=== PATIENT | male | born 1945 | race Caucasian/White ===

== ENCOUNTER → 2017-09-27 | Outpatient (CLI) | payer MEDICARE ==
[2017-09-27 11:37] LABS: ALT 49 U/L (21-72); AST 37 U/L (17-59); Albumin 3.8 g/dL (3.5-5.0); Alkaline Phosphatase 91 U/L (38-126); Anion Gap 9 mmol/L; Blood Urea Nitrogen 33 mg/dL (9-20); Calcium 9.6 mg/dL (8.4-10.2); Carbon Dioxide 32 mmol/L (22-30); Chloride 103 mmol/L (98-107); Creatine Kinase 42 U/L (55-170); Glucose 98 mg/dL (74-99); Sodium 144 mmol/L (137-145); Total Bilirubin 0.5 mg/dL (0.2-1.3); Total Protein 6.6 g/dL (6.3-8.2)
[2017-09-27 11:54] LABS: Troponin I 0.026 ng/mL (0.000-0.034)
== END | disposition home or self-care (01) ==
LOC: LABWHC1 10:50
PROVIDERS: ATTEND Nurse Practitioner Adult Health
DX: I25.10 Atherosclerotic heart disease of native coronary artery without angina pectoris (principal); R07.89 Other chest pain
CPT/HCPCS: 36415; 80053; 82550; 82553; 83880; 84484

== ENCOUNTER → 2017-11-18 | Outpatient (CLI) | payer MEDICARE | END | disposition home or self-care (01) | LOC: LABWHC1 14:46 | PROVIDERS: ATTEND Internal Medicine Cardiovascular Disease | DX: I50.9 Heart failure, unspecified (principal) | CPT/HCPCS: 36415; 83880 ==

== ENCOUNTER → 2017-11-22 | Outpatient (CLI) | payer MEDICARE ==
[2017-11-22 13:01] LABS: Anion Gap 11 mmol/L; Blood Urea Nitrogen 23 mg/dL (9-20); Calcium 9.3 mg/dL (8.4-10.2); Carbon Dioxide 26 mmol/L (22-30); Chloride 105 mmol/L (98-107); Glucose 80 mg/dL (74-99); Potassium 4.6 mmol/L (3.5-5.1); Sodium 142 mmol/L (137-145)
== END | disposition home or self-care (01) ==
LOC: LABWHC1 12:11
PROVIDERS: ATTEND Internal Medicine Cardiovascular Disease
DX: I50.9 Heart failure, unspecified (principal)
CPT/HCPCS: 36415; 80048

== ENCOUNTER → 2018-04-24 | Outpatient (CLI) | payer MEDICARE ==
[2018-04-24 18:14] LABS: Potassium 4.5 mmol/L (3.5-5.1)
[2018-04-24 18:23] LABS: HCT 49.2 % (39.0-53.0); HGB 15.8 gm/dL (13.0-17.5); MCH 29.2 pg (25.0-35.0); MCHC 32.1 g/dL (31.0-37.0); MCV 90.9 fL (80.0-100.0); Platelet Count 161 k/uL (150-450); RBC 5.42 m/uL (4.30-5.90); RDW 13.6 % (11.5-15.5); WBC 6.1 k/uL (3.8-10.6)
== END | disposition home or self-care (01) ==
LOC: LABPAT 17:09
PROVIDERS: ATTEND Internal Medicine Cardiovascular Disease
DX: Z01.812 Encounter for preprocedural laboratory examination (principal); I25.5 Ischemic cardiomyopathy; I42.9 Cardiomyopathy, unspecified
CPT/HCPCS: 36415; 80051; 82565; 84520; 85027

== ENCOUNTER 2018-04-27 10:17 | Inpatient (IN) | payer MEDICARE ==
--- NOTE | 2018-04-27 10:40 | ED ---
Arrhythmia/Palpitations HPI - General Chief Complaint: Arrhythmia/Palpitations Stated Complaint: Cardiac issues Time Seen by Provider: 04/27/18 10:21 Source: patient, EMS, RN notes reviewed Mode of arrival: EMS Limitations: no limitations - History of Present Illness Initial Comments: This a 73-year-old male presents emergency Department with chief complaint of tachycardia. Patient states that he was at cardiac rehab in which he states he has been there for several years and is continues work conditioning. Patient states that he was doing some light warmup exercises which did include weights and states that they found him to be tachycardic at 150s. Patient states she is asymptomatic he denied any dizziness, lightheadedness, chest pain, shortness breath, nausea, vomiting. Patient states he has noticed last 2 mornings when he gets up and checks his heart rate and blood pressure is heart rate has been just over 100. He states that normally is only in the 60s and states that he was planning to talk to his cardiac nurse about this though before he could they found to be tachycardic about 150. Patient states that he has no symptoms at this time he does admit that they recently changed his medications slightly states that he was discontinued off of potassium and was started on lactulose. Patient states he has had a triple bypass and is scheduled for a defibrillator secondary to his history of CHF, left bundle. He states that his ejection fracture is 30%. - Related Data Home Medications Medication Instructions Recorded Confirmed Aspirin 81 mg PO BID 07/18/15 04/27/18 Carvedilol 12.5 mg PO BID 07/18/15 04/27/18 Fish Oil/Dha/Epa [Fish Oil 1,200 1 each PO DAILY 07/18/15 04/27/18 mg Fish Oil] Multivitamin [Men's Multi-Vitamin] 1 each PO DAILY 07/18/15 04/27/18 Simvastatin [Zocor] 20 mg PO HS 07/18/15 04/27/18 Spironolactone [Aldactone] 25 mg PO DAILY 07/18/15 04/27/18 Ascorbic Acid [Vitamin C] 500 mg PO DAILY 04/27/18 04/27/18 Furosemide [Lasix] 40 mg PO DAILY 04/27/18 04/27/18 Allergies Allergy/AdvReac Type Severity Reaction Status Date / Time No Known Allergies Allergy Verified 09/20/18 11:40 Review of Systems ROS Statement: Those systems with pertinent positive or pertinent negative responses have been documented in the HPI. ROS Other: All systems not noted in ROS Statement are negative. Past Medical History Past Medical History: Heart Failure, Hyperlipidemia, Osteoarthritis (OA), Prostate Disorder, Sleep Apnea/CPAP/BIPAP, Thyroid Disorder Additional Past Medical History / Comment(s): uses oxygen @2l PRN, borderline diabetes prior to wt loss, occ lower leg edema, uses cane,walker PRN, See Dr Ortega H&P History of Any Multi-Drug Resistant Organisms: None Reported Past Surgical History: Adenoidectomy, Coronary Bypass/CABG, Heart Catheterization, Tonsillectomy Additional Past Surgical History / Comment(s): parathyroidectomy, cataract surg. , cardiac cath. 10-16-15 Past Anesthesia/Blood Transfusion Reactions: No Reported Reaction Past Psychological History: No Psychological Hx Reported Smoking Status: Former smoker Past Alcohol Use History: None Reported Past Drug Use History: None Reported - Past Family History Father Family Medical History: Cancer Additional Family Medical History / Comment(s): Father had prostate cancer with mets to the bone. He at age 76 yrs. General Exam Limitations: no limitations General appearance: alert, in no apparent distress Head exam: Present: atraumatic, normocephalic, normal inspection Eye exam: Present: normal appearance, PERRL, EOMI. Absent: scleral icterus, conjunctival injection, periorbital swelling ENT exam: Present: normal exam, normal oropharynx, mucous membranes moist, TM's normal bilaterally, normal external ear exam Neck exam: Present: normal inspection, full ROM. Absent: tenderness, meningismus, lymphadenopathy Respiratory exam: Present: normal lung sounds bilaterally. Absent: respiratory distress, wheezes, rales, rhonchi, stridor Cardiovascular Exam: Present: regular rate, normal rhythm, normal heart sounds. Absent: systolic murmur, diastolic murmur, rubs, gallop, clicks Neurological exam: Present: alert, oriented X3, CN II-XII intact Skin exam: Present: warm, dry, intact, normal color. Absent: rash Course Vital Signs 04/27/18 10:22 Temperature 96.9 F L Pulse Rate 82 Respiratory 16 Rate Blood Pressure 121/65 O2 Sat by Pulse 98 Oximetry Medical Decision Making - Medical Decision Making 73-year-old male presented for tachycardia. Patient's troponin is elevated at this time he does not have a current chest pain no patient was started on heparin. Patient sees Dr. Jacobs out of [place] in same office is Dr. Britni herrera. Patient will be admitted to [facility] services for Dr. Cortez at this time. Cardiology will be consult - Lab Data Result diagrams: 04/27/18 10:21 04/27/18 10:21 Lab Results 04/27/18 04/27/18 04/27/18 Range/Units 10:21 10:21 10:21 WBC 6.3 (3.8-10.6) k/uL RBC 5.53 (4.30-5.90) m/uL Hgb 16.4 (13.0-17.5) gm/dL Hct 50.7 (39.0-53.0) % MCV 91.7 (80.0-100.0) fL MCH 29.7 (25.0-35.0) pg MCHC 32.3 (31.0-37.0) g/dL RDW 13.8 (11.5-15.5) % Plt Count 156 (150-450) k/uL Neutrophils % 59 % Lymphocytes % 28 % Monocytes % 8 % Eosinophils % 2 % Basophils % 1 % Neutrophils # 3.7 (1.3-7.7) k/uL Lymphocytes # 1.7 (1.0-4.8) k/uL Monocytes # 0.5 (0-1.0) k/uL Eosinophils # 0.1 (0-0.7) k/uL Basophils # 0.1 (0-0.2) k/uL PT (9.0-12.0) sec INR (<1.2) APTT (22.0-30.0) sec Sodium 142 (137-145) mmol/L Potassium 4.7 (3.5-5.1) mmol/L Chloride 110 H (98-107) mmol/L Carbon Dioxide 23 (22-30) mmol/L Anion Gap 9 mmol/L BUN 29 H (9-20) mg/dL Creatinine 0.98 (0.66-1.25) mg/dL Est GFR (CKD-EPI)AfAm >90 (>60 ml/min/1.73 sqM) Est GFR (CKD-EPI)NonAf 78 (>60 ml/min/1.73 sqM) Glucose 104 H (74-99) mg/dL Calcium 9.2 (8.4-10.2) mg/dL Magnesium 2.1 (1.6-2.3) mg/dL Total Bilirubin 0.5 (0.2-1.3) mg/dL AST 25 (17-59) U/L ALT 32 (21-72) U/L Alkaline Phosphatase 76 (38-126) U/L Total Creatine Kinase 41 L (55-170) U/L CK-MB (CK-2) 1.5 (0.0-2.4) ng/mL CK-MB (CK-2) Rel Index 3.7 Troponin I 0.044 H* (0.000-0.034) ng/mL Total Protein 6.2 L (6.3-8.2) g/dL Albumin 3.5 (3.5-5.0) g/dL TSH 2.000 (0.465-4.680) mIU/L 04/27/18 Range/Units 10:21 WBC (3.8-10.6) k/uL RBC (4.30-5.90) m/uL Hgb (13.0-17.5) gm/dL Hct (39.0-53.0) % MCV (80.0-100.0) fL MCH (25.0-35.0) pg MCHC (31.0-37.0) g/dL RDW (11.5-15.5) % Plt Count (150-450) k/uL Neutrophils % % Lymphocytes % % Monocytes % % Eosinophils % % Basophils % % Neutrophils # (1.3-7.7) k/uL Lymphocytes # (1.0-4.8) k/uL Monocytes # (0-1.0) k/uL Eosinophils # (0-0.7) k/uL Basophils # (0-0.2) k/uL PT 12.0 (9.0-12.0) sec INR 1.3 H (<1.2) APTT 24.4 (22.0-30.0) sec Sodium (137-145) mmol/L Potassium (3.5-5.1) mmol/L Chloride (98-107) mmol/L Carbon Dioxide (22-30) mmol/L Anion Gap mmol/L BUN (9-20) mg/dL Creatinine (0.66-1.25) mg/dL Est GFR (CKD-EPI)AfAm (>60 ml/min/1.73 sqM) Est GFR (CKD-EPI)NonAf (>60 ml/min/1.73 sqM) Glucose (74-99) mg/dL Calcium (8.4-10.2) mg/dL Magnesium (1.6-2.3) mg/dL Total Bilirubin (0.2-1.3) mg/dL AST (17-59) U/L ALT (21-72) U/L Alkaline Phosphatase (38-126) U/L Total Creatine Kinase (55-170) U/L CK-MB (CK-2) (0.0-2.4) ng/mL CK-MB (CK-2) Rel Index Troponin I (0.000-0.034) ng/mL Total Protein (6.3-8.2) g/dL Albumin (3.5-5.0) g/dL TSH (0.465-4.680) mIU/L Disposition Clinical Impression: Elevated troponin, Tachycardia Disposition: ADMITTED IP TO THIS HOSP Condition: Fair Referrals: Romero Jacobs MD [Primary Care Provider] - 1-2 days
--- NOTE | 2018-04-27 10:56 | XR ---
EXAMINATION TYPE: XR chest 2V DATE OF EXAM: 04/27/2018 COMPARISON: 10/12/2013 HISTORY: Shortness of breath TECHNIQUE: Frontal and lateral views of the chest are obtained. FINDINGS: Scattered senescent parenchymal changes noted. Hyperinflation compatible with COPD. No evidence for infiltrate. No evidence for atelectasis. Heart size is stable. Mediastinal structures are stable and grossly unremarkable. No evidence for hilar prominence. Degenerative changes dorsal spine. IMPRESSION: 1. No evidence for acute pulmonary disease.
[2018-04-27 11:31] LABS: Basophils # (A) 0.1 k/uL (0-0.2); Basophils % (A) 1 %; Eosinophils # (A) 0.1 k/uL (0-0.7); Eosinophils % (A) 2 %; HCT 50.7 % (39.0-53.0); HGB 16.4 gm/dL (13.0-17.5); Lymphocytes # (A) 1.7 k/uL (1.0-4.8); Lymphocytes % (A) 28 %; MCH 29.7 pg (25.0-35.0); MCHC 32.3 g/dL (31.0-37.0); MCV 91.7 fL (80.0-100.0); Mean Platelet Volume 7.6; Monocytes # (A) 0.5 k/uL (0-1.0); Monocytes % (A) 8 %; Neutrophils # (A) 3.7 k/uL (1.3-7.7); Neutrophils % (A) 59 %; Platelet Count 156 k/uL (150-450); RBC 5.53 m/uL (4.30-5.90); RDW 13.8 % (11.5-15.5); WBC 6.3 k/uL (3.8-10.6)
[2018-04-27 11:32] LABS: ALT 32 U/L (21-72); AST 25 U/L (17-59); Albumin 3.5 g/dL (3.5-5.0); Alkaline Phosphatase 76 U/L (38-126); Anion Gap 9 mmol/L; Blood Urea Nitrogen 29 mg/dL (9-20); Calcium 9.2 mg/dL (8.4-10.2); Carbon Dioxide 23 mmol/L (22-30); Chloride 110 mmol/L (98-107); Glucose 104 mg/dL (74-99); Magnesium 2.1 mg/dL (1.6-2.3); Potassium 4.7 mmol/L (3.5-5.1); Sodium 142 mmol/L (137-145); Total Bilirubin 0.5 mg/dL (0.2-1.3); Total Protein 6.2 g/dL (6.3-8.2)
[2018-04-27 11:51] LABS: INR 1.3 (<1.2); Partial Thromboplastin Time 24.4 sec (22.0-30.0)
[2018-04-27 12:00] LABS: Creatine Kinase MB 1.5 ng/mL (0.0-2.4)
[2018-04-27 12:03] LABS: Troponin I 0.044 ng/mL (0.000-0.034)
[2018-04-27] MEDS ORDERED: HEPARIN SODIUM,PORCINE 5,000 UNIT/ML 1 ML VIAL IV PRN (12:11)
[2018-04-27] MEDS ORDERED: HEPARIN SODIUM,PORCINE 5,000 UNIT/ML 1 ML VIAL IV ONE (12:11)
[2018-04-27] MEDS ORDERED: NITROGLYCERIN SL TABS 0.4 MG TAB SUBLINGUAL PRN (12:23)
[2018-04-27] MEDS: HEPARIN SOD,PORK IN 0.45% NACL 25,000 UNIT in 0.45% NACL 1 500ML.BAG IV SCH (12:31)
[2018-04-27] MEDS ORDERED: LABETALOL 5 MG/ML VIAL MDV IVP STA (12:37)
[2018-04-27 17:01] LABS: Creatine Kinase MB 1.4 ng/mL (0.0-2.4)
[2018-04-27 17:09] LABS: Troponin I 0.038 ng/mL (0.000-0.034)
[2018-04-27] MEDS: CARVEDILOL 12.5 MG TAB PO SCH (17:25)
[2018-04-27] MEDS: ASPIRIN 81 MG PO SCH (20:44)
[2018-04-27] MEDS ORDERED: ATORVASTATIN 10 MG TAB PO SCH (21:00)
[2018-04-27 22:30] LABS: Creatine Kinase MB 1.4 ng/mL (0.0-2.4)
[2018-04-27 22:41] LABS: Troponin I 0.041 ng/mL (0.000-0.034)
[2018-04-28 03:38] LABS: Cholesterol 93 mg/dL (<200); HDL Cholesterol 48 mg/dL (40-60); LDL Cholesterol,Calculated 31 mg/dL (0-99); Triglycerides 69 mg/dL (<150)
[2018-04-28] MEDS: HEPARIN SOD,PORK IN 0.45% NACL 25,000 UNIT in 0.45% NACL 1 500ML.BAG IV SCH ×2 (04:37→12:15)
[2018-04-28] MEDS: CARVEDILOL 12.5 MG TAB PO SCH (06:34)
[2018-04-28] MEDS: NON-FORMULARY DRUG (Multivitamin [Men's Multi-Vitamin] 1 EACH) PO SCH (06:58)
[2018-04-28] MEDS: ASPIRIN 81 MG PO SCH (08:28)
[2018-04-28] MEDS: SPIRONOLACTONE 25 MG TAB PO SCH (08:28)
[2018-04-28] MEDS: FUROSEMIDE 40 MG TAB PO SCH (08:28)
[2018-04-28] MEDS ORDERED: ASPIRIN 325 MG TAB PO SCH (09:00)
[2018-04-28] MEDS ORDERED: DEXTROSE 5% IN WATER 100 ML with AMIODARONE 150 MG IV ONE (09:50)
[2018-04-28] MEDS ORDERED: APIXABAN 5 MG TAB PO SCH (10:00)
[2018-04-28 10:07] LABS: HCT 45.7 % (39.0-53.0); HGB 14.6 gm/dL (13.0-17.5); MCH 29.1 pg (25.0-35.0); MCV 90.8 fL (80.0-100.0); Mean Platelet Volume 8.4; Platelet Count 129 k/uL (150-450); RBC 5.03 m/uL (4.30-5.90); RDW 13.7 % (11.5-15.5); WBC 5.6 k/uL (3.8-10.6)
[2018-04-28] MEDS: AMIODARONE 450 MG in DEXTROSE 5% IN WATER 250 ML IV SCH ×4 (10:16→17:23)
[2018-04-28] MEDS: SACUBITRIL/VALSARTAN 24 MG-26 MG TABLET PO SCH ×2 (10:17→20:35)
--- NOTE | 2018-04-28 10:25 | CONS ---
CONSULTATION Mr. Pierson is a 73-year-old gentleman who came to the emergency room with a complaint of tachycardia. This patient has noticed for last 2 to 3 days his heart rate was running 110 to 130. Patient was in the rehab and at that time his heart rate jumped up to 150. He did not feel significant palpitations or dizziness. He was slightly short of breath, did not complain of any chest pain. This patient has a known history of ischemic cardiomyopathy, prior coronary artery bypass surgery, ischemic cardiomyopathy. The patient is supposed to have a AICD placed in next couple of weeks. The patient remains in functional class 3. He can walk a couple of blocks and climb the flight of stairs slowly. Denies any orthopnea or PND. He denies any history of angina on exertion. There is no previous history of atrial fibrillation. PAST MEDICAL HISTORY: Past medical history includes history of hypertension, hyperlipidemia. The patient is using CPAP and BiPAP machine. Coronary artery bypass surgery and parathyroidectomy. HOME MEDICATIONS: Patient's home medications included Coreg 6.25 mg b.i.d., aspirin, simvastatin, spironolactone, Lasix 40 mg daily and vitamin C. PHYSICAL EXAMINATION: Physical examination at present reveals a 73-year-old morbidly obese gentleman. Blood pressure is 118/74 mmHg. Heart rate is 50 per minute. Patient is now in sinus rhythm. Head/ENT examination is negative. Neck is supple. There is no increase in jugular venous pressure. Both the carotid pulses are felt. There is no bruit. Chest is symmetrical. HEART: The PMI is not felt. First and second heart sounds are normal. Lungs are clinically clear to auscultation and percussion. Abdomen is soft. There is no evidence of any leg edema. EKG showed evidence of right bundle branch block pattern with occasional PVCs and left axis deviation. Patient currently is in sinus rhythm. FINAL IMPRESSION: 1. This patient is admitted with paroxysmal atrial fibrillation. He is now converted to the normal sinus rhythm. This is his first episode of atrial fibrillation. 2. Ischemic cardiomyopathy with severely impaired left ventricular systolic function. 3. Status post coronary artery bypass surgery. RECOMMENDATIONS: In view of the patient's episodes of the atrial fibrillation, we will start the patient on amiodarone drip to prevent recurrent episodes of atrial fibrillation. Continue the rest of the medications. Patient is started on Eliquis 5 mg b.i.d. and we will discontinue aspirin. EKG and echocardiogram will be done. TERRI / ANGIEN: [id number] /
--- NOTE | 2018-04-28 10:27 | P.HPIM ---
History of Present Illness H&P Date: 04/27/18 Patient is a 73-year-old pleasant gentleman with known history of for can start failure ejection fraction of 30%, scheduled to get an AICD came in with compensative palpitations regular in nature denied any short of breath denied any chest pressure like sensation denied any fever chills. Patient was on Coreg 12.5 twice a day dose of which was decreased to 6.25 twice a day about couple months ago because of the severe bradycardia when he sleeps. Patient has been well elevated troponins which are secondary to palpitations patient denied any fever chills patient had shortness of breath orthopnea or paroxysmal nocturnal dyspnea patient apparently was tachycardic with heart rate in 150s denied any dizziness lightheadedness shortness of breath patient EKG showed tachycardia sinus wide-complex. With the right bundle branch block and left anterior fascicular block Review of Systems REVIEW OF SYSTEMS: CONSTITUTIONAL: No fever, no malaise, no fatigue. HEENT: No recent visual problems or hearing problems. Denied any sore throat. CARDIOVASCULAR: No chest pain, orthopnea, PND, no syncope. PULMONARY: No shortness of breath, no cough, no hemoptysis. GASTROINTESTINAL: No diarrhea, no nausea, no vomiting, no abdominal pain. Normoactive bowel sounds. NEUROLOGICAL: No headaches, no weakness, no numbness. HEMATOLOGICAL: Denies any bleeding or petechiae. GENITOURINARY: Denies any burning micturition, frequency, or urgency. MUSCULOSKELETAL/RHEUMATOLOGICAL: Denies any joint pain, swelling, or any muscle pain. ENDOCRINE: Denies any polyuria or polydipsia. The rest of the 14-point review of systems is negative. Past Medical History Past Medical History: Heart Failure, Hyperlipidemia, Osteoarthritis (OA), Prostate Disorder, Sleep Apnea/CPAP/BIPAP, Thyroid Disorder Additional Past Medical History / Comment(s): uses oxygen @2l PRN, borderline diabetes prior to wt loss, occ lower leg edema, History of Any Multi-Drug Resistant Organisms: None Reported Past Surgical History: Adenoidectomy, Coronary Bypass/CABG, Heart Catheterization, Tonsillectomy Additional Past Surgical History / Comment(s): parathyroidectomy, cataract surg. , cardiac cath. 10-16-15 Past Anesthesia/Blood Transfusion Reactions: No Reported Reaction Past Psychological History: No Psychological Hx Reported Additional Psychological History / Comment(s): Pt has a nonfamily member who [place]. Pt is independent. He has a cane he uses if weather is bad. He drives. Smoking Status: Former smoker Past Alcohol Use History: None Reported Additional Past Alcohol Use History / Comment(s): used to smoke a pipe, quit 40 yrs. ago Past Drug Use History: None Reported - Past Family History Father Family Medical History: Cancer Additional Family Medical History / Comment(s): Father had prostate cancer with mets to the bone. He at age 76 yrs. Medications and Allergies Home Medications Medication Instructions Recorded Confirmed Type Aspirin 81 mg PO BID 07/18/15 04/27/18 History Carvedilol 12.5 mg PO BID 07/18/15 04/27/18 History Fish Oil/Dha/Epa [Fish Oil 1,200 1 cap PO DAILY 07/18/15 04/27/18 History mg Fish Oil] Multivitamin [Men's Multi-Vitamin] 1 tab PO DAILY 07/18/15 04/27/18 History Simvastatin [Zocor] 20 mg PO HS 07/18/15 04/27/18 History Spironolactone [Aldactone] 25 mg PO DAILY 07/18/15 04/27/18 History Ascorbic Acid [Vitamin C] 500 mg PO DAILY 04/27/18 04/27/18 History Furosemide [Lasix] 40 mg PO DAILY 04/27/18 04/27/18 History Sacubitril/Valsartan [Entresto 24 1 tab PO BID 04/27/18 04/27/18 History mg-26 mg Tablet] Allergies Allergy/AdvReac Type Severity Reaction Status Date / Time No Known Allergies Allergy Verified 04/27/18 11:40 Physical Exam Vitals: Vital Signs Temp Pulse Pulse Resp BP BP Pulse Ox 04/28/18 08:36 97.0 F L 50 L 18 118/74 98 04/28/18 08:00 52 L 16 04/28/18 04:00 97.5 F L 52 L 16 99/63 96 04/28/18 03:09 65 18 04/28/18 00:00 109 H 15 100/67 97 04/27/18 20:00 96.9 F L 102 H 16 116/73 99 04/27/18 15:04 109 H 18 09/20/18 15:01 97.3 F L 107 H 18 101/77 97 04/27/18 15:00 96 04/27/18 14:43 97.3 F L 108 H 18 101/77 97 04/27/18 13:46 110 H 18 106/55 98 04/27/18 12:38 108 H 18 180/102 97 04/27/18 10:22 96.9 F L 82 16 121/65 98 Intake and Output 04/27/18 04/28/18 04/28/18 22:59 06:59 14:59 Intake Total 158.571 709.210 Output Total 200 Balance -41.429 709.210 Intake: Intake, IV Titration 158.571 229.210 Amount Heparin Sod,Pork in 0.45% 158.571 229.210 NaCl 25,000 unit In 0.45 % NaCl 1 500ml.bag @ 6.9 UNITS/KG/HR 20.03 mls/hr IV .Q24H MIQUEL Rx#: [id number] Oral 480 Output: Urine 200 Other: Voiding Method Toilet Toilet Toilet Urinal Urinal Urinal # Voids 1 1 Weight 148.2 kg PHYSICAL EXAMINATION: GENERAL: The patient is alert and oriented x3, not in any acute distress. Well developed, well nourished. HEENT: Pupils are round and equally reacting to light. EOMI. No scleral icterus. No conjunctival pallor. Normocephalic, atraumatic. No pharyngeal erythema. No thyromegaly. CARDIOVASCULAR: S1 and S2 present. No murmurs, rubs, or gallops. Tachycardic regular PULMONARY: Chest is clear to auscultation, no wheezing or crackles. ABDOMEN: Soft, nontender, nondistended, normoactive bowel sounds. No palpable organomegaly. MUSCULOSKELETAL: No joint swelling or deformity. EXTREMITIES: No cyanosis, clubbing, or pedal edema. NEUROLOGICAL: Gross neurological examination did not reveal any focal deficits. SKIN: No rashes. Results CBC & Chem 7: 04/28/18 09:34 04/27/18 10:21 Labs: Abnormal Lab Results - Last 24 Hours (Table) 04/27/18 04/27/18 04/27/18 Range/Units 10:21 10:21 10:21 Plt Count (150-450) k/uL INR 1.3 H (<1.2) APTT (22.0-30.0) sec Chloride 110 H (98-107) mmol/L BUN 29 H (9-20) mg/dL Glucose 104 H (74-99) mg/dL Total Creatine Kinase 41 L (55-170) U/L Troponin I 0.044 H* (0.000-0.034) ng/mL Total Protein 6.2 L (6.3-8.2) g/dL 04/27/18 04/27/18 04/27/18 Range/Units 16:05 18:30 21:49 Plt Count (150-450) k/uL INR (<1.2) APTT 36.2 H (22.0-30.0) sec Chloride (98-107) mmol/L BUN (9-20) mg/dL Glucose (74-99) mg/dL Total Creatine Kinase 38 L 39 L (55-170) U/L Troponin I 0.038 H* 0.041 H* (0.000-0.034) ng/mL Total Protein (6.3-8.2) g/dL 04/28/18 04/28/18 04/28/18 Range/Units 02:44 09:34 09:34 Plt Count 129 L (150-450) k/uL INR (<1.2) APTT 88.3 H 47.2 H (22.0-30.0) sec Chloride (98-107) mmol/L BUN (9-20) mg/dL Glucose (74-99) mg/dL Total Creatine Kinase (55-170) U/L Troponin I (0.000-0.034) ng/mL Total Protein (6.3-8.2) g/dL Thrombosis Risk Factor Assmnt - Choose All That Apply Any of the Below Risk Factors Present?: Yes Each Factor Represents 1 point: Obesity (BMI >25), Swollen legs (current) Other Risk Factors: Yes Each Risk Factor Represents 2 Points: Age 61-74 years Other congenital or acquired thrombophilia - If yes, enter type in comment: No Thrombosis Risk Factor Assessment Total Risk Factor Score: 4 Thrombosis Risk Factor Assessment Level: Moderate Risk Assessment and Plan Plan: -Palpitations: Patient does have sinus tachycardia will increase the dose of beta fior. Patient main need a pacemaker and AICD which probably can be done on this admission considering that he has issues with the bradycardia as well in the past and he will need an AICD because of the poor ejection fraction and wide-QRS complex -Congestive heart failure chronic systolic dysfunction ejection fraction is around 30% patient is euvolemic continue with an Presto and the Lasix. -Hyperlipidemia -Benign prostatic hypertrophy next and-sleep apnea -Hypothyroidism will obtain TSH levels -Coronary artery disease history of CABG in the past.
[2018-04-28 10:29] LABS: Albumin 3.2 g/dL (3.5-5.0); Calcium 9.1 mg/dL (8.4-10.2); Magnesium 2.2 mg/dL (1.6-2.3); Potassium 4.7 mmol/L (3.5-5.1); Total Bilirubin 0.5 mg/dL (0.2-1.3); Total Protein 5.7 g/dL (6.3-8.2)
--- NOTE | 2018-04-28 11:24 | ECHOF ---
Referral Reason:cardiomyopathy MEASUREMENTS -------- HEIGHT: 182.9 cm WEIGHT: 147.9 kg BP: IVSd: 1.3 cm (0.6 - 1.1) LVIDd: 7.9 cm (3.9 - 5.3) LVPWd: 1.1 cm (0.6 - 1.1) IVSs: 1.6 cm LVIDs: 7.0 cm LVPWs: 1.6 cm LAESV Index (A-L): 39.78 ml/m Ao Diam: 3.8 cm (2.0 - 3.7) AV Cusp: 2.3 cm (1.5 - 2.6) LA Diam: 6.3 cm (2.7 - 3.8) MV EXCURSION: 14.425 mm (> 18.000) MV EF SLOPE: 32 mm/s (70 - 150) EPSS: 2.5 cm MV E Kin: 0.80 m/s MV DecT: 209 ms MV A Kin: 0.30 m/s MV E/A Ratio: 2.66 FINDINGS -------- Resting bradycardia (HR<60bpm). This was a technically difficult study with suboptimal views. The left ventricle is severely dilated. There is mild concentric left ventricular hypertrophy. Th ere is severe global hypokinesis of LV . Overall left ventricular systolic function is severely imp aired with, an EF between 20 - 25 %. The right ventricle is normal in size and function. LA is midly dilated 29-33ml/m2. The right atrium is normal in size. Lumason used Aortic valve is trileaflet and is mildly thickened. Mild mitral regurgitation is present. Mild tricuspid regurgitation present. The right ventricular systolic pressure, as measured by Doppl er, is {RVSP}. Pulmonic valve appears structurally normal. The aortic root is mildy dilated. Normal inferior vena cava with normal inspiratory collapse consistent with estimated right atrial pre ssure of 5 mmHg. The pericardium is normal. CONCLUSIONS -------- 1. Resting bradycardia (HR<60bpm). 2. This was a technically difficult study with suboptimal views. 3. The left ventricle is severely dilated. 4. There is mild concentric left ventricular hypertrophy. 5. There is severe global hypokinesis of LV . 6. Overall left ventricular systolic function is severely impaired with, an EF between 20 - 25 %. 7. The right ventricle is normal in size and function. 8. LA is midly dilated 29-33ml/m2. 9. The right atrium is normal in size. 10. Lumason used 11. Aortic valve is trileaflet and is mildly thickened. 12. Mild mitral regurgitation is present. 13. Mild tricuspid regurgitation present. 14. The right ventricular systolic pressure, as measured by Doppler, is {RVSP}. 15. Pulmonic valve appears structurally normal. 16. The aortic root is mildy dilated. 17. Normal inferior vena cava with normal inspiratory collapse consistent with estimated right atrial pressure of 5 mmHg. 18. The pericardium is normal. FINDING FASTENER: Radha Ferreira RDCS
[2018-04-28] MEDS ORDERED: ceFAZolin IN SWFI 2 GM/20 ML SYRINGE IVP ONE (11:30)
[2018-04-28] MEDS ORDERED: ceFAZolin 1,000 MG in SODIUM CHLORIDE 0.9% IRRIGATIO 250 ML IRRIGATION ONE (11:30)
[2018-04-28 12:21] LABS: INR 1.2 (<1.2); Partial Thromboplastin Time 28.1 sec (22.0-30.0); Prothrombin Time 11.1 sec (9.0-12.0)
--- NOTE | 2018-04-28 14:04 | P.PN ---
Subjective Patient is admitted for atrial fibrillation with rapid and regular rate patient was started on amiodarone patient was started on anticoagulation by cardiology with [facility]. Patient is presently rate controlled patient was also started on amiodarone. Constitutional: Denied any fatigue denied any fever. Cardio vascular: denied any chest pain, palpitations Gastrointestinal denied any nausea vomiting Pulmonary: Denied any shortness of breath cough Neurologic denied any new focal deficits Objective - Vital Signs Vital signs: Vital Signs Temp 97.0 F L 04/28/18 08:36 Pulse 52 L 04/28/18 11:58 Resp 18 04/28/18 11:58 BP 122/64 04/28/18 11:30 Pulse Ox 98 04/28/18 12:03 Intake & Output 04/27/18 04/28/18 04/28/18 18:59 06:59 18:59 Intake Total 867.781 240 Output Total 200 300 Balance -200 867.781 -60 Weight 145.15 kg 148.2 kg Intake: Intake, IV Titration 387.781 Amount Heparin Sod,Pork in 0.45% 387.781 NaCl 25,000 unit In 0.45 % NaCl 1 500ml.bag @ 6.9 UNITS/KG/HR 20.03 mls/hr IV .Q24H [facility] Rx#: [id number] Oral 480 240 Output: Urine 200 300 Other: Voiding Method Toilet Toilet Toilet Urinal Urinal Urinal # Voids 1 1 1 # Bowel Movements 1 - Exam PHYSICAL EXAMINATION: GENERAL: The patient is alert and oriented x3, not in any acute distress. Obese HEENT: Pupils are round and equally reacting to light. EOMI. No scleral icterus. No conjunctival pallor. Normocephalic, atraumatic. No pharyngeal erythema. No thyromegaly. CARDIOVASCULAR: S1 and S2 present. No murmurs, rubs, or gallops. PULMONARY: Chest is clear to auscultation, no wheezing or crackles. ABDOMEN: Soft, nontender, nondistended, normoactive bowel sounds. No palpable organomegaly. MUSCULOSKELETAL: No joint swelling or deformity. EXTREMITIES: No cyanosis, clubbing, or pedal edema. NEUROLOGICAL: Gross neurological examination did not reveal any focal deficits. SKIN: No rashes. - Labs CBC & Chem 7: 04/28/18 09:34 04/28/18 09:34 Labs: Abnormal Lab Results - Last 24 Hours (Table) 04/27/18 04/27/18 04/27/18 Range/Units 16:05 18:30 21:49 Plt Count (150-450) k/uL INR (<1.2) APTT 36.2 H (22.0-30.0) sec Chloride (98-107) mmol/L BUN (9-20) mg/dL Glucose (74-99) mg/dL Total Creatine Kinase 38 L 39 L (55-170) U/L Troponin I 0.038 H* 0.041 H* (0.000-0.034) ng/mL Total Protein (6.3-8.2) g/dL Albumin (3.5-5.0) g/dL 04/28/18 04/28/18 04/28/18 Range/Units 02:44 09:34 09:34 Plt Count 129 L (150-450) k/uL INR (<1.2) APTT 88.3 H 47.2 H (22.0-30.0) sec Chloride (98-107) mmol/L BUN (9-20) mg/dL Glucose (74-99) mg/dL Total Creatine Kinase (55-170) U/L Troponin I (0.000-0.034) ng/mL Total Protein (6.3-8.2) g/dL Albumin (3.5-5.0) g/dL 04/28/18 04/28/18 Range/Units 09:34 11:57 Plt Count (150-450) k/uL INR 1.2 H (<1.2) APTT (22.0-30.0) sec Chloride 109 H (98-107) mmol/L BUN 29 H (9-20) mg/dL Glucose 103 H (74-99) mg/dL Total Creatine Kinase (55-170) U/L Troponin I (0.000-0.034) ng/mL Total Protein 5.7 L (6.3-8.2) g/dL Albumin 3.2 L (3.5-5.0) g/dL Assessment and Plan Plan: -Palpitations: Atrial fibrillation with rapid and regular rate: Patient was started on anti-correlation as mentioned above presently rate controlled is also on amiodarone and the patient will undergo AICD placement -Congestive heart failure chronic systolic dysfunction ejection fraction is around 30% patient is euvolemic continue with Entresto and the Lasix. -Hyperlipidemia -Benign prostatic hypertrophy -sleep apnea -Hypothyroidism TSH is within normal limits -Coronary artery disease history of CABG in the past.
[2018-04-28] MEDS: CARVEDILOL 6.25 MG TAB PO SCH (17:11)
[2018-04-28] MEDS: ATORVASTATIN 40 MG TAB PO SCH (20:35)
[2018-04-28] MEDS: HEPARIN SODIUM,PORCINE 5,000 UNIT/ML 1 ML VIAL IV PRN (20:38)
[2018-04-28] MEDS ORDERED: SACUBITRIL/VALSARTAN 24 MG-26 MG TABLET PO SCH (21:00)
[2018-04-29 02:44] LABS: Basophils % (A) 1 %; Eosinophils # (A) 0.2 k/uL (0-0.7); Eosinophils % (A) 3 %; HCT 44.7 % (39.0-53.0); HGB 14.5 gm/dL (13.0-17.5); Lymphocytes # (A) 1.6 k/uL (1.0-4.8); Lymphocytes % (A) 26 %; MCH 29.7 pg (25.0-35.0); MCHC 32.5 g/dL (31.0-37.0); MCV 91.4 fL (80.0-100.0); Mean Platelet Volume 8.3; Monocytes # (A) 0.5 k/uL (0-1.0); Monocytes % (A) 8 %; Neutrophils # (A) 3.7 k/uL (1.3-7.7); Neutrophils % (A) 61 %; Platelet Count 121 k/uL (150-450); RBC 4.89 m/uL (4.30-5.90); RDW 13.7 % (11.5-15.5)
[2018-04-29 03:27] LABS: Calcium 9.1 mg/dL (8.4-10.2); Potassium 4.3 mmol/L (3.5-5.1)
[2018-04-29] MEDS: AMIODARONE 450 MG in DEXTROSE 5% IN WATER 250 ML IV SCH ×4 (05:04→09:05)
[2018-04-29] MEDS: CARVEDILOL 6.25 MG TAB PO SCH ×2 (06:00→17:04)
[2018-04-29] MEDS: NON-FORMULARY DRUG (Multivitamin [Men's Multi-Vitamin] 1 EACH) PO SCH (06:44)
[2018-04-29] MEDS: HEPARIN SOD,PORK IN 0.45% NACL 25,000 UNIT in 0.45% NACL 1 500ML.BAG IV SCH (09:04)
[2018-04-29] MEDS: SPIRONOLACTONE 25 MG TAB PO SCH (09:13)
[2018-04-29] MEDS: FUROSEMIDE 40 MG TAB PO SCH (09:13)
[2018-04-29] MEDS: SACUBITRIL/VALSARTAN 24 MG-26 MG TABLET PO SCH ×2 (09:13→20:20)
--- NOTE | 2018-04-29 12:00 | P.PN ---
Subjective Progress Note Date: 04/29/18 This 73-year-old gentleman with history of cardiomyopathy, ischemic heart disease was admitted to the hospital with a wide complex tachycardia. Patient was treated with IV amiodarone. Patient converted back to sinus rhythm. He was scheduled to have an AICD implantation. Patient is going to have the device implantation on Tuesday. Patient is feeling well. His echocardiogram showed severely impaired LV function with an ejection fraction of 20-25%. Patient seemed to be otherwise clinically stable Objective - Vital Signs Vital signs: Vital Signs Temp 97.1 F L 04/29/18 09:24 Pulse 50 L 04/29/18 09:24 Resp 18 04/29/18 09:24 BP 112/63 04/29/18 09:24 Pulse Ox 95 04/29/18 09:24 Intake & Output 04/28/18 04/29/18 04/29/18 18:59 06:59 18:59 Intake Total 677.237 165.748 574.252 Output Total 300 Balance 377.237 165.748 574.252 Weight 146.5 kg Intake: Intake, IV Titration 215.237 165.748 334.252 Amount Amiodarone 450 mg In 215.237 Dextrose 5% in Water 250 ml @ 1 MG/MIN 34.53 mls/ hr IV .Q7H31M [facility] Rx#: [id number] Heparin Sod,Pork in 0.45% 165.748 334.252 NaCl 25,000 unit In 0.45 % NaCl 1 500ml.bag @ 6.7 UNITS/KG/HR 19.85 mls/hr IV .Q24H [facility] Rx#: [id number] Oral 462 240 Output: Urine 300 Other: Voiding Method Toilet Toilet Toilet Urinal Urinal Urinal # Voids 1 1 # Bowel Movements 1 - Exam GENERAL EXAM: Patient is alert and oriented and doesn't appear to be in any acute distress HEENT: Normocephalic. Normal reaction of pupils, equal size, normal range of extraocular motion. No erythema or exudates in the throat. NECK: No masses, no nuchal rigidity. CHEST: No chest wall deformity. LUNGS: Equal air entry with no crackles or wheeze. HEART: S1 and S2 normal with no audible mumurs or gallops. Regular rhythm, femorals equal on both sides.. ABDOMEN: No hepatosplenomegaly, normal bowel sounds, no guarding or rigidity. SKIN: No rashes CENTRAL NERVOUS SYSTEM: No focal deficits. EXTREMITIES: No cyanosis, clubbing or edema. - Labs CBC & Chem 7: 04/29/18 02:26 04/29/18 02:26 Labs: Abnormal Lab Results - Last 24 Hours (Table) 04/28/18 04/28/18 04/29/18 Range/Units 11:57 19:46 02:26 Plt Count 121 L (150-450) k/uL INR 1.2 H (<1.2) APTT 30.4 H (22.0-30.0) sec Chloride (98-107) mmol/L BUN (9-20) mg/dL 04/29/18 04/29/18 Range/Units 02:26 02:26 Plt Count (150-450) k/uL INR (<1.2) APTT 51.3 H (22.0-30.0) sec Chloride 109 H (98-107) mmol/L BUN 27 H (9-20) mg/dL Assessment and Plan (1) Wide-complex tachycardia Current Visit: Yes Status: Acute Code(s): I47.2 - VENTRICULAR TACHYCARDIA SNOMED Code(s): 786110543 (2) Elevated troponin Current Visit: Yes Status: Acute Code(s): R74.8 - ABNORMAL LEVELS OF OTHER SERUM ENZYMES SNOMED Code(s): 432016563 (3) Cardiomyopathy Current Visit: Yes Status: Acute Code(s): I42.9 - CARDIOMYOPATHY, UNSPECIFIED SNOMED Code(s): 28648484 (4) Chronic systolic CHF (congestive heart failure) Current Visit: Yes Status: Acute Code(s): I50.22 - CHRONIC SYSTOLIC ( CONGESTIVE) HEART FAILURE SNOMED Code(s): 147368698 Plan: We will continue current medical therapy. We'll proceed with AICD implantation on Tuesday
--- NOTE | 2018-04-29 12:20 | P.PN ---
Subjective Patient is admitted for atrial fibrillation with rapid and regular rate patient was started on amiodarone patient was started on anticoagulation by cardiology with [facility]. Patient is presently rate controlled patient was also started on amiodarone. 04/29/2018 Patient is clinically doing well until undergo AICD placement on Tuesday Constitutional: Denied any fatigue denied any fever. Cardio vascular: denied any chest pain, palpitations Gastrointestinal denied any nausea vomiting Pulmonary: Denied any shortness of breath cough Neurologic denied any new focal deficits Objective - Vital Signs Vital signs: Vital Signs Temp 97.1 F L 04/29/18 09:24 Pulse 50 L 04/29/18 12:15 Resp 18 04/29/18 12:15 BP 112/63 04/29/18 09:24 Pulse Ox 95 04/29/18 09:24 Intake & Output 04/28/18 04/29/18 04/29/18 18:59 06:59 18:59 Intake Total 677.237 165.748 814.252 Output Total 300 300 Balance 377.237 165.748 514.252 Weight 146.5 kg Intake: IV 240 .9 @ 20 240 Intake, IV Titration 215.237 165.748 334.252 Amount Amiodarone 450 mg In 215.237 Dextrose 5% in Water 250 ml @ 1 MG/MIN 34.53 mls/ hr IV .Q7H31M [facility] Rx#: [id number] Heparin Sod,Pork in 0.45% 165.748 334.252 NaCl 25,000 unit In 0.45 % NaCl 1 500ml.bag @ 6.7 UNITS/KG/HR 19.85 mls/hr IV .Q24H [facility] Rx#: [id number] Oral 462 240 Output: Urine 300 300 Other: Voiding Method Toilet Toilet Toilet Urinal Urinal Urinal # Voids 1 1 1 # Bowel Movements 1 - Exam PHYSICAL EXAMINATION: GENERAL: The patient is alert and oriented x3, not in any acute distress. Obese HEENT: Pupils are round and equally reacting to light. EOMI. No scleral icterus. No conjunctival pallor. Normocephalic, atraumatic. No pharyngeal erythema. No thyromegaly. CARDIOVASCULAR: S1 and S2 present. No murmurs, rubs, or gallops. PULMONARY: Chest is clear to auscultation, no wheezing or crackles. ABDOMEN: Soft, nontender, nondistended, normoactive bowel sounds. No palpable organomegaly. MUSCULOSKELETAL: No joint swelling or deformity. EXTREMITIES: No cyanosis, clubbing, or pedal edema. NEUROLOGICAL: Gross neurological examination did not reveal any focal deficits. SKIN: No rashes. - Labs CBC & Chem 7: 04/29/18 02:26 04/29/18 02:26 Labs: Abnormal Lab Results - Last 24 Hours (Table) 04/28/18 04/28/18 04/29/18 Range/Units 11:57 19:46 02:26 Plt Count 121 L (150-450) k/uL INR 1.2 H (<1.2) APTT 30.4 H (22.0-30.0) sec Chloride (98-107) mmol/L BUN (9-20) mg/dL 04/29/18 04/29/18 Range/Units 02:26 02:26 Plt Count (150-450) k/uL INR (<1.2) APTT 51.3 H (22.0-30.0) sec Chloride 109 H (98-107) mmol/L BUN 27 H (9-20) mg/dL Assessment and Plan Plan: -Palpitations: Atrial fibrillation with rapid and regular rate: Patient was started on anti-correlation as mentioned above presently rate controlled is also on amiodarone and the patient will undergo AICD placement -Congestive heart failure chronic systolic dysfunction ejection fraction is around 30% patient is euvolemic continue with Entresto and the Lasix. -Hyperlipidemia -Benign prostatic hypertrophy -sleep apnea -Hypothyroidism TSH is within normal limits -Coronary artery disease history of CABG in the past.
[2018-04-29] MEDS: ATORVASTATIN 40 MG TAB PO SCH (20:20)
[2018-04-30 02:19] LABS: Basophils % (A) 1 %; Eosinophils # (A) 0.2 k/uL (0-0.7); Eosinophils % (A) 4 %; HCT 49.3 % (39.0-53.0); HGB 15.9 gm/dL (13.0-17.5); Lymphocytes # (A) 1.5 k/uL (1.0-4.8); Lymphocytes % (A) 23 %; MCH 29.7 pg (25.0-35.0); MCHC 32.3 g/dL (31.0-37.0); MCV 92.1 fL (80.0-100.0); Monocytes # (A) 0.5 k/uL (0-1.0); Monocytes % (A) 7 %; Neutrophils # (A) 4.3 k/uL (1.3-7.7); Neutrophils % (A) 64 %; Platelet Count 135 k/uL (150-450); RBC 5.35 m/uL (4.30-5.90); RDW 13.8 % (11.5-15.5); WBC 6.7 k/uL (3.8-10.6)
[2018-04-30] MEDS: HEPARIN SOD,PORK IN 0.45% NACL 25,000 UNIT in 0.45% NACL 1 500ML.BAG IV SCH ×2 (02:45→17:58)
[2018-04-30] MEDS: HEPARIN SODIUM,PORCINE 5,000 UNIT/ML 1 ML VIAL IV PRN (02:49)
[2018-04-30] MEDS: CARVEDILOL 6.25 MG TAB PO SCH ×2 (05:44→17:27)
[2018-04-30] MEDS: NON-FORMULARY DRUG (Multivitamin [Men's Multi-Vitamin] 1 EACH) PO SCH (08:01)
[2018-04-30] MEDS: SPIRONOLACTONE 25 MG TAB PO SCH (08:24)
[2018-04-30] MEDS: SACUBITRIL/VALSARTAN 24 MG-26 MG TABLET PO SCH ×2 (08:24→21:02)
[2018-04-30] MEDS: FUROSEMIDE 40 MG TAB PO SCH (08:24)
--- NOTE | 2018-04-30 12:10 | P.PN ---
Subjective Progress Note Date: 04/30/18 This 73-year-old gentleman with history of cardiomyopathy, ischemic heart disease was admitted to the hospital with a wide complex tachycardia. Patient was treated with IV amiodarone. Patient converted back to sinus rhythm. He was scheduled to have an AICD implantation. Patient is going to have the device implantation on Tuesday. Patient is feeling well. His echocardiogram showed severely impaired LV function with an ejection fraction of 20-25%. Patient seemed to be otherwise clinically stable. 04/30/2018. The patient is doing well. Denies any chest discomfort, shortness breath or palpitations. He is hemodynamically stable. Scheduled for AICD implantation. Objective - Vital Signs Vital signs: Vital Signs Temp 97.1 F L 04/30/18 11:36 Pulse 48 L 04/30/18 11:38 Resp 18 04/30/18 11:38 BP 120/75 04/30/18 11:36 Pulse Ox 96 04/30/18 11:39 Intake & Output 04/29/18 04/30/18 04/30/18 18:59 06:59 18:59 Intake Total 1294.252 501.917 514.954 Output Total 300 800 Balance 994.252 501.917 -285.046 Weight 145.9 kg Intake: IV 240 .9 @ 20 240 Intake, IV Titration 334.252 501.917 214.954 Amount Heparin Sod,Pork in 0.45% 334.252 501.917 214.954 NaCl 25,000 unit In 0.45 % NaCl 1 500ml.bag @ 6.7 UNITS/KG/HR 19.85 mls/hr IV .Q24H [facility] Rx#: [id number] Oral 720 300 Output: Urine 300 800 Other: Voiding Method Toilet Toilet Toilet Urinal Urinal Urinal # Voids 1 2 - Exam GENERAL EXAM: Patient is alert and oriented and doesn't appear to be in any acute distress HEENT: Normocephalic. Normal reaction of pupils, equal size, normal range of extraocular motion. No erythema or exudates in the throat. NECK: No masses, no nuchal rigidity. CHEST: No chest wall deformity. LUNGS: Equal air entry with no crackles or wheeze. HEART: S1 and S2 normal with 2/6 systolic murmur. Regular rhythm, femorals equal on both sides.. ABDOMEN: No hepatosplenomegaly, normal bowel sounds, no guarding or rigidity. SKIN: No rashes CENTRAL NERVOUS SYSTEM: No focal deficits. EXTREMITIES: No cyanosis, clubbing or edema. - Labs CBC & Chem 7: 04/30/18 02:07 04/29/18 02:26 Labs: Abnormal Lab Results - Last 24 Hours (Table) 04/30/18 04/30/18 04/30/18 Range/Units 02:07 02:07 08:18 Plt Count 135 L (150-450) k/uL APTT 43.2 H 79.5 H (22.0-30.0) sec Assessment and Plan Assessment: Wide-complex tachycardia Elevated troponin Cardiomyopathy Chronic systolic heart failure Plan: Kidney with current medication regimen. We will proceed with AICD implantation tomorrow morning.
--- NOTE | 2018-04-30 13:38 | P.PN ---
Subjective Progress Note Date: 04/30/18 Principal diagnosis: Wide-complex tachycardia Severe cardiomyopathy 04/30/2018 This 73-year-old gentleman with history of cardiomyopathy, ischemic heart disease was admitted to the hospital with a wide complex tachycardia. Patient was treated with IV amiodarone. Patient converted back to sinus rhythm. He was scheduled to have an AICD implantation. Patient is going to have the device implantation on Tuesday. Patient is feeling well. His echocardiogram showed severely impaired LV function with an ejection fraction of 20-25%. Patient seemed to be otherwise clinically stable. Objective - Vital Signs Vital signs: Vital Signs Temp 97.1 F L 04/30/18 11:36 Pulse 48 L 04/30/18 11:38 Resp 18 04/30/18 11:38 BP 120/75 04/30/18 11:36 Pulse Ox 96 04/30/18 11:39 Intake & Output 04/29/18 04/30/18 04/30/18 18:59 06:59 18:59 Intake Total 1294.252 501.917 514.954 Output Total 300 800 Balance 994.252 501.917 -285.046 Weight 145.9 kg Intake: IV 240 .9 @ 20 240 Intake, IV Titration 334.252 501.917 214.954 Amount Heparin Sod,Pork in 0.45% 334.252 501.917 214.954 NaCl 25,000 unit In 0.45 % NaCl 1 500ml.bag @ 6.7 UNITS/KG/HR 19.85 mls/hr IV .Q24H [facility] Rx#: [id number] Oral 720 300 Output: Urine 300 800 Other: Voiding Method Toilet Toilet Toilet Urinal Urinal Urinal # Voids 1 2 - Exam - Constitutional General appearance: Present: average body habitus, cooperative, no acute distress - EENT Eyes: Present: anicteric sclerae, EOMI, PERRLA, normal appearance ENT: Present: hearing grossly normal, normal oropharynx Ears: bilateral: normal - Neck Neck: Present: normal ROM. Absent: lymphadenopathy, rigidity, thyromegaly Carotids: negative: bruit present Thyroid: bilateral: normal size, negative: enlarged, nodule - Respiratory Respiratory: bilateral: CTA, negative: rales, rhonchi, wheezing - Cardiovascular Rhythm: regular Heart sounds: normal: S1, S2 Abnormal Heart Sounds: Absent: systolic murmur, diastolic murmur - Gastrointestinal General gastrointestinal: Present: normal bowel sounds, soft. Absent: distended , organomegaly, tenderness - Genitourinary Genitourinary Comment(s): deferred - Integumentary Integumentary: Present: normal turgor. Absent: jaundiced, rash, ulcer - Neurologic Neurologic: Present: CNII-XII intact. Absent: focal deficits - Musculoskeletal Musculoskeletal: Present: gait normal, strength equal bilaterally - Psychiatric Psychiatric: Present: A&O x's 3, appropriate affect, intact judgment & insight - Labs CBC & Chem 7: 04/30/18 02:07 04/29/18 02:26 Labs: Abnormal Lab Results - Last 24 Hours (Table) 04/30/18 04/30/18 04/30/18 Range/Units 02:07 02:07 08:18 Plt Count 135 L (150-450) k/uL APTT 43.2 H 79.5 H (22.0-30.0) sec Assessment and Plan Assessment: 1. Wide complex tachycardia - Patient remains stable on amiodarone and anticoagulation therapy - Patient is scheduled for AICD implantation tomorrow 2. Elevated troponin; possible demand related - No further Cardiac workup is recommended 3. Severe cardiomyopathy; for AICD implantation tomorrow morning 4. Chronic systolic CHF; ejection fraction is around 30% - Patient remains euvolemic on Entresto, Aldactone and Lasix 5. Hyperlipidemia; continue home dose of Lipitor 40 mg by mouth daily at bedtime 6. Hypertension; stable on Coreg 6.25 mg by mouth twice a day and Entresto 24 26 milligrams twice a day 7. DVT prophylaxis; systemic anticoagulation with heparin CODE STATUS; full code Time with Patient: Greater than 30
[2018-04-30] MEDS: LACTATED RINGERS 1,000 ML IV SCH (17:58)
[2018-04-30] MEDS: ATORVASTATIN 40 MG TAB PO SCH (21:02)
[2018-05-01 06:03] LABS: Basophils % (A) 1 %; Eosinophils # (A) 0.2 k/uL (0-0.7); Eosinophils % (A) 4 %; HCT 45.9 % (39.0-53.0); Lymphocytes # (A) 1.4 k/uL (1.0-4.8); Lymphocytes % (A) 27 %; MCH 29.8 pg (25.0-35.0); MCHC 32.6 g/dL (31.0-37.0); MCV 91.2 fL (80.0-100.0); Mean Platelet Volume 8.5; Monocytes # (A) 0.4 k/uL (0-1.0); Monocytes % (A) 8 %; Neutrophils # (A) 3.1 k/uL (1.3-7.7); Neutrophils % (A) 59 %; Platelet Count 133 k/uL (150-450); RBC 5.03 m/uL (4.30-5.90); RDW 13.9 % (11.5-15.5); WBC 5.3 k/uL (3.8-10.6)
[2018-05-01] MEDS: CARVEDILOL 6.25 MG TAB PO SCH (06:27)
[2018-05-01 07:15] LABS: Calcium 9.6 mg/dL (8.4-10.2); Potassium 4.6 mmol/L (3.5-5.1)
[2018-05-01] MEDS ORDERED: ceFAZolin 1,000 MG in SODIUM CHLORIDE 0.9% IRRIGATIO 250 ML IRRIGATION ONE (08:00)
--- NOTE | 2018-05-01 09:50 | P.PN ---
Subjective Progress Note Date: 05/01/18 Principal diagnosis: Wide-complex tachycardia Severe cardiomyopathy 04/30/2018 This 73-year-old gentleman with history of cardiomyopathy, ischemic heart disease was admitted to the hospital with a wide complex tachycardia. Patient was treated with IV amiodarone. Patient converted back to sinus rhythm. He was scheduled to have an AICD implantation. Patient is going to have the device implantation on Tuesday. Patient is feeling well. His echocardiogram showed severely impaired LV function with an ejection fraction of 20-25%. Patient seemed to be otherwise clinically stable. 05/01/2018; Patient is seen and evaluated in the room at bedside; vital signs remained stable with a blood pressure of of 103/55 pulse rate 52 and SpO2 of 94% on room air; Patient is scheduled for AICD implantation this morning Objective - Vital Signs Vital signs: Vital Signs Temp 97.2 F L 05/01/18 08:00 Pulse 52 L 05/01/18 08:00 Resp 18 05/01/18 08:00 BP 103/55 05/01/18 08:00 Pulse Ox 94 L 05/01/18 08:00 Intake & Output 04/30/18 05/01/18 05/01/18 18:59 06:59 18:59 Intake Total 1252.267 686.083 45.649 Output Total 800 Balance 452.267 686.083 45.649 Weight 145.1 kg Intake: IV 320 .9 @ 20 320 Intake, IV Titration 472.267 366.083 45.649 Amount Heparin Sod,Pork in 0.45% 472.267 366.083 45.649 NaCl 25,000 unit In 0.45 % NaCl 1 500ml.bag @ 6.7 UNITS/KG/HR 19.85 mls/hr IV .Q24H [facility] Rx#: [id number] Oral 780 Output: Urine 800 Other: Voiding Method Toilet Toilet Urinal Urinal # Voids 3 - Exam - Constitutional General appearance: Present: average body habitus, cooperative, no acute distress - EENT Eyes: Present: anicteric sclerae, EOMI, PERRLA, normal appearance ENT: Present: hearing grossly normal, normal oropharynx Ears: bilateral: normal - Neck Neck: Present: normal ROM. Absent: lymphadenopathy, rigidity, thyromegaly Carotids: negative: bruit present Thyroid: bilateral: normal size, negative: enlarged, nodule - Respiratory Respiratory: bilateral: CTA, negative: rales, rhonchi, wheezing - Cardiovascular Rhythm: regular Heart sounds: normal: S1, S2 Abnormal Heart Sounds: Absent: systolic murmur, diastolic murmur - Gastrointestinal General gastrointestinal: Present: normal bowel sounds, soft. Absent: distended , organomegaly, tenderness - Genitourinary Genitourinary Comment(s): deferred - Integumentary Integumentary: Present: normal turgor. Absent: jaundiced, rash, ulcer - Neurologic Neurologic: Present: CNII-XII intact. Absent: focal deficits - Musculoskeletal Musculoskeletal: Present: gait normal, strength equal bilaterally - Psychiatric Psychiatric: Present: A&O x's 3, appropriate affect, intact judgment & insight - Labs CBC & Chem 7: 05/01/18 05:43 05/01/18 05:43 Labs: Abnormal Lab Results - Last 24 Hours (Table) 04/30/18 05/01/18 05/01/18 Range/Units 15:23 05:43 05:43 Plt Count 133 L (150-450) k/uL APTT 46.5 H (22.0-30.0) sec BUN 21 H (9-20) mg/dL Glucose 108 H (74-99) mg/dL 05/01/18 Range/Units 05:43 Plt Count (150-450) k/uL APTT 44.9 H (22.0-30.0) sec BUN (9-20) mg/dL Glucose (74-99) mg/dL Assessment and Plan Assessment: 1. Wide complex tachycardia - Patient remains stable on amiodarone and anticoagulation therapy with IV heparin per protocol - Patient is scheduled for AICD implantation today 2. Elevated troponin; possible demand related - No further Cardiac workup is recommended 3. Severe cardiomyopathy; for AICD implantation this morning 4. Chronic systolic CHF; ejection fraction is around 30% - Patient remains euvolemic on Entresto, Aldactone and Lasix 5. Hyperlipidemia; continue home dose of Lipitor 40 mg by mouth daily at bedtime 6. Hypertension; stable on Coreg 6.25 mg by mouth twice a day and Entresto 24 26 milligrams twice a day 7. DVT prophylaxis; systemic anticoagulation with heparin CODE STATUS; full code Disposition; patient is scheduled for AICD implantation this morning; discharge planning pending clinical course post procedure
[2018-05-01] MEDS ORDERED: diphenhydrAMINE 50 MG/ML 1 ML VIAL ONE (10:30)
[2018-05-01] MEDS ORDERED: LACTATED RINGERS 1,000 ML IV ONE (10:30)
[2018-05-01] MEDS ORDERED: PROPOFOL 10 MG/ML 20 ML VIAL IV ONE (10:30)
[2018-05-01] MEDS ORDERED: MIDAZOLAM 2 MG/2 ML VIAL ONE (10:30)
[2018-05-01] MEDS ORDERED: fentaNYL (PF) 50 MCG/ML 2 ML AMP ONE (10:30)
[2018-05-01] MEDS ORDERED: LIDOCAINE 1% INJ 10MG/ML (20 ML MDV) ONE ×2 (10:55)
[2018-05-01] MEDS ORDERED: IOPAMIDOL-250 50ML BTL IV ONE (11:00)
[2018-05-01] MEDS: ceFAZolin IN SWFI 2 GM/20 ML SYRINGE IVP ONE ×2 (11:06→11:08)
[2018-05-01] MEDS ORDERED: LIDOCAINE 1% INJ 10MG/ML (20 ML MDV) SQ ONE ×2 (11:12→11:20)
[2018-05-01] MEDS ORDERED: ACETAMINOPHEN TAB 325 MG TAB PO PRN (12:16)
[2018-05-01] MEDS: SACUBITRIL/VALSARTAN 24 MG-26 MG TABLET PO SCH ×2 (14:46→20:32)
[2018-05-01] MEDS: SPIRONOLACTONE 25 MG TAB PO SCH (17:15)
[2018-05-01] MEDS: FUROSEMIDE 40 MG TAB PO SCH (17:15)
[2018-05-01] MEDS: NON-FORMULARY DRUG (Multivitamin [Men's Multi-Vitamin] 1 EACH) PO SCH (17:18)
[2018-05-01] MEDS: CARVEDILOL 12.5 MG TAB PO SCH (17:20)
[2018-05-01] MEDS: ceFAZolin IN SWFI 2 GM/20 ML SYRINGE IVP SCH (17:20)
--- NOTE | 2018-05-01 18:12 | P.PCN ---
Date of Procedure: 05/01/18 Preoperative Diagnosis: Nonischemic heart myopathy and CHF and also significant sinus bradycardia. Postoperative Diagnosis: The same Procedure(s) Performed: Dual-chamber AICD implantation Description of Procedure: HISTORY: This is a 73-year-old gentleman with history of nonischemic heart myopathy, ischemic heart disease and also bypass surgery with chronic congestive heart failure, who was advised to have dual-chamber AICD for primary prophylaxis. Patient also has profound bradycardia requiring atrial pacing. CONSENT:I have discussed the risks, benefits and alternative therapies for the above-mentioned procedure and for both sedation/analgesia as well as necessary blood product administration, if indicated, as they pertain to this patient. The patient has indicated understanding and acceptance of the risks and procedures discussed. PROCEDURE: Patient was brought to the lab in a fasting state. Patient was prepped and draped in the usual fashion. The department of anesthesia provided anesthesia during and after the procedure. The skin below the left clavicle was infiltrated with lidocaine. An incision was made parallel to deltopectoral groove was deepened until the pectoral fascia was exposed. A pocket was created by blunt dissection and cautery. Axillary venography was performed to delineate the course of the axillary vein. 2 sticks were performed into extrathoracic portion of the axillary vein and 2 sheaths were advanced over the guidewires and left in subclavian vein. Duration : 54 minutes LEADS: ATRIAL: . This is manufactured by [employer]. Model number is 5076-52. Serial number is [id number]. VENTRICULAR: This is manufactured by [employer]. Model number is 4046O15. The serial number is [id number]. The ventricular lead is maneuvered l with help of a straight and curved stylets into the left ventricle apical septal region. Satisfactory position was obtained and threshold measurements were made. The atrial lead was then maneuvered into the right atrial appendage. And thresholds were obtained. THRESHOLDS: ATRIUM: The minimum patient threshold was 0.4 at pulse width of 0.5. The impedance was 841 ohms. P-wave: 5.6 mV VENTRICLE: . The minimum patient threshold is 0.4 at pulse width of 0.5 ms. The impedance is 768. R-wave: 7.7 mV DFT testing: Patient was given deep anesthesia by department of anesthesia. Ventricular fibrillation was induced with T shock. This was appropriately detected. A single shock of 15 J converted patient back to sinus rhythm. Patient tolerated the procedure well. The leads and pulse generator remained in the pocket after it was washed with antibiotics. Pocket was closed in the usual fashion. The fascia was closed with 2-0 Prolene ,the subcutaneous tissue was closed with 3-0 Prolene and the skin was closed with 4-0 Prolene. PROGRAMMING: Bradycardia Programming: MODE: AAIR with mode switch to DDDR. RATE: 60 to 1:30 OUTPUT: Atrium : 3.5 V Ventricle: 3.5 V Tachycardia Programming: VF therapy: The rate is programmed to 200 bpm. Initial detection is programmed to 30/40 and redetect is programmed to 9/12. The therapies are programmed to 24 J followed by 355. FINAL IMPRESSION: #1 axillary venography #2. Successful implantation of dual- chamber AICD COMPLICATIONS: None PLAN: . Continue prophylactic antibiotics. Continue monitoring on the telemetry unit. Chest x-ray in the morning. I will increase the dose of the Coreg. Further recommendations depend upon the clinical course.
[2018-05-01] MEDS: LACTATED RINGERS 1,000 ML IV SCH (20:24)
[2018-05-01] MEDS: ATORVASTATIN 40 MG TAB PO SCH (20:31)
[2018-05-01] MEDS: HYDROcodone/APAP 5-325MG 1 EACH TAB PO PRN (21:44)
[2018-05-02] MEDS: ceFAZolin IN SWFI 2 GM/20 ML SYRINGE IVP SCH ×3 (00:20→12:26)
[2018-05-02] MEDS: HYDROcodone/APAP 5-325MG 1 EACH TAB PO PRN (04:57)
[2018-05-02] MEDS: CARVEDILOL 12.5 MG TAB PO SCH (06:13)
[2018-05-02 07:13] LABS: Basophils % (A) 1 %; Eosinophils # (A) 0.2 k/uL (0-0.7); Eosinophils % (A) 3 %; HCT 51.6 % (39.0-53.0); HGB 16.4 gm/dL (13.0-17.5); Lymphocytes # (A) 1.3 k/uL (1.0-4.8); Lymphocytes % (A) 18 %; MCH 29.6 pg (25.0-35.0); MCHC 31.8 g/dL (31.0-37.0); MCV 93.1 fL (80.0-100.0); Mean Platelet Volume 8.1; Monocytes # (A) 0.5 k/uL (0-1.0); Monocytes % (A) 7 %; Neutrophils # (A) 5.3 k/uL (1.3-7.7); Neutrophils % (A) 71 %; Platelet Count 136 k/uL (150-450); RBC 5.55 m/uL (4.30-5.90); WBC 7.5 k/uL (3.8-10.6)
--- NOTE | 2018-05-02 08:02 | XR ---
EXAMINATION TYPE: XR chest 2V DATE OF EXAM: 05/02/2018 COMPARISON: Chest x-ray from 5 days ago. HISTORY: Pacemaker placed for dysrhythmia. TECHNIQUE: Frontal and lateral views of the chest are obtained. FINDINGS: There is new dual-lead pacemaker/AICD with leads terminating in right atrium and right vent ricle. Post CABG changes with mediastinal clips and sternal wires is redemonstrated. There is chronic parenchymal change without suspicious new focal air space opacity, pleural effusion, or pneumothorax seen. The cardiac silhouette size remains enlarged with atherosclerotic and ectatic aorta. High rid ing right humeral head consistent with chronic rotator cuff tear is redemonstrated. IMPRESSION: New dual lead pacemaker with leads terminating in right atrium and right ventricle. No r adiographic evidence of complication related to procedure. Cardiomegaly and chronic parenchymal [place] e without acute pulmonary process.
[2018-05-02 09:44] VITALS: PULSE 60; RESP 18; TEMP 97
[2018-05-02] MEDS: NON-FORMULARY DRUG (Multivitamin [Men's Multi-Vitamin] 1 EACH) PO SCH (09:45)
[2018-05-02] MEDS: SACUBITRIL/VALSARTAN 24 MG-26 MG TABLET PO SCH (09:45)
[2018-05-02] MEDS: FUROSEMIDE 40 MG TAB PO SCH (09:45)
[2018-05-02] MEDS: SPIRONOLACTONE 25 MG TAB PO SCH (09:45)
[2018-05-02 12:06] VITALS: BP 125/66
--- NOTE | 2018-05-02 12:44 | P.DS ---
Providers Date of admission: 04/28/18 15:42 Attending physician: Calvin Mejias Consults: 04/27/18 12:23 Consult Physician Urgent Consulting Provider: Afsaneh Ortega Consult Reason/Comments: Tachycardia Do you want consulting provider notified?: Yes Primary care physician: Romero Jacobs MD Hospital Course: 04/30/2018 This 73-year-old gentleman with history of cardiomyopathy, ischemic heart disease was admitted to the hospital with a wide complex tachycardia. Patient was treated with IV amiodarone. Patient converted back to sinus rhythm. He was scheduled to have an AICD implantation. Patient is going to have the device implantation on Tuesday. Patient is feeling well. His echocardiogram showed severely impaired LV function with an ejection fraction of 20-25%. Patient seemed to be otherwise clinically stable. 05/01/2018; Patient is seen and evaluated in the room at bedside; vital signs remained stable with a blood pressure of of 103/55 pulse rate 52 and SpO2 of 94% on room air; Patient is scheduled for AICD implantation this morning 05/02/2018 Patient received AICD will be discharged today once the device is checked and after completion of last dose of antibiotic today. As per cardiology patient didn't have A. fib because of that reason that not recommending anticoagulation at this time. Patient's Coreg dose was increased and not on an amiodarone anymore. PHYSICAL EXAMINATION: GENERAL: The patient is alert and oriented x3, not in any acute distress. Obese HEENT: Pupils are round and equally reacting to light. EOMI. No scleral icterus. No conjunctival pallor. Normocephalic, atraumatic. No pharyngeal erythema. No thyromegaly. CARDIOVASCULAR: S1 and S2 present. No murmurs, rubs, or gallops. PULMONARY: Chest is clear to auscultation, no wheezing or crackles. ABDOMEN: Soft, nontender, nondistended, normoactive bowel sounds. No palpable organomegaly. MUSCULOSKELETAL: No joint swelling or deformity. EXTREMITIES: No cyanosis, clubbing, or pedal edema. NEUROLOGICAL: Gross neurological examination did not reveal any focal deficits. SKIN: No rashes. -Wide-complex tachycardia: Status post AiCD and pacemaker placement, no anticoagulation continue with Coreg -Congestive heart failure chronic systolic dysfunction ejection fraction is around 20% patient is euvolemic continue with Entresto and the Lasix. -Hyperlipidemia -Benign prostatic hypertrophy -sleep apnea -Hypothyroidism TSH is within normal limits -Coronary artery disease history of CABG in the past. Patient Condition at Discharge: Fair Plan - Discharge Summary Discharge Rx Participant: Yes New Discharge Prescriptions: Continue Spironolactone [Aldactone] 25 mg PO DAILY Simvastatin [Zocor] 20 mg PO HS Carvedilol 12.5 mg PO BID Aspirin 81 mg PO BID Multivitamin [Men's Multi-Vitamin] 1 tab PO DAILY Fish Oil/Dha/Epa [Fish Oil 1,200 mg Fish Oil] 1 cap PO DAILY Furosemide [Lasix] 40 mg PO DAILY Ascorbic Acid [Vitamin C] 500 mg PO DAILY Sacubitril/Valsartan [Entresto 24 mg-26 mg Tablet] 1 tab PO BID Discharge Medication List Aspirin 81 mg PO BID 07/18/15 [History] Carvedilol 12.5 mg PO BID 07/18/15 [History] Fish Oil/Dha/Epa [Fish Oil 1,200 mg Fish Oil] 1 cap PO DAILY 07/18/15 [History] Multivitamin [Men's Multi-Vitamin] 1 tab PO DAILY 07/18/15 [History] Simvastatin [Zocor] 20 mg PO HS 07/18/15 [History] Spironolactone [Aldactone] 25 mg PO DAILY 07/18/15 [History] Ascorbic Acid [Vitamin C] 500 mg PO DAILY 04/27/18 [History] Furosemide [Lasix] 40 mg PO DAILY 04/27/18 [History] Sacubitril/Valsartan [Entresto 24 mg-26 mg Tablet] 1 tab PO BID 04/27/18 [ History] Follow up Appointment(s)/Referral(s): [facility] [Provider Group] - 05/08/18 10:00 am (device check only) Romero Jacobs MD [Primary Care Provider] - 3 Days (Spoke to bag valver. Office will call with appointment time) Afsaneh Ortega MD [STAFF PHYSICIAN] - 05/23/18 2:30 pm (Tuesday) Patient Instructions/Handouts: Implantable Cardioverter Defibrillator (DC) Discharge Disposition: HOME SELF-CARE
--- NOTE | 2018-05-02 14:50 | P.PN ---
Subjective Progress Note Date: 05/02/18 His is a 73-year-old gentleman with history of ischemic cardiomyopathy, ischemic heart disease, admitted to the hospital with wide complex tachycardia and was treated with IV amiodarone, he converted back to normal sinus rhythm. Patient underwent implantation of an AICD yesterday by Dr. Ortega. It was tender interrogated today and functioning appropriately. Chest x-ray did not reveal any pneumothorax. Hemodynamically he is stable. He should be able to be discharged home later after noon. He will have a follow-up appointment in the device clinic and with Dr. Ortega. We'll continue Keflex for 3 days. . Objective - Vital Signs Vital signs: Vital Signs Temp 97 F L 05/02/18 09:35 Pulse 60 05/02/18 11:35 Resp 18 05/02/18 11:35 BP 125/66 05/02/18 11:35 Pulse Ox 97 05/02/18 11:35 Intake & Output 05/01/18 05/02/18 05/02/18 18:59 06:59 18:59 Intake Total 1275.649 400 Output Total 400 300 Balance 875.649 -300 400 Weight 146.3 kg Intake: IV 750 Intake, IV Titration 45.649 Amount Heparin Sod,Pork in 0.45% 45.649 NaCl 25,000 unit In 0.45 % NaCl 1 500ml.bag @ 6.7 UNITS/KG/HR 19.85 mls/hr IV .Q24H [facility] Rx#: [id number] Oral 480 400 Output: Urine 400 300 Other: Voiding Method Toilet Toilet Toilet Urinal Urinal Urinal # Voids 4 2 - Exam GENERAL EXAM: Patient is alert and oriented and doesn't appear to be in any acute distress HEENT: Normocephalic. Normal reaction of pupils, equal size, normal range of extraocular motion. No erythema or exudates in the throat. NECK: No masses, no nuchal rigidity. CHEST: No chest wall deformity. Site of device implantation, dressing is dry and intact LUNGS: Equal air entry with no crackles or wheeze. HEART: S1 and S2 normal with no audible mumurs or gallops. Regular rhythm, femorals equal on both sides.. ABDOMEN: No hepatosplenomegaly, normal bowel sounds, no guarding or rigidity. SKIN: No rashes CENTRAL NERVOUS SYSTEM: No focal deficits. EXTREMITIES: No cyanosis, clubbing or edema. - Labs CBC & Chem 7: 05/02/18 06:27 05/01/18 05:43 Labs: Abnormal Lab Results - Last 24 Hours (Table) 05/02/18 Range/Units 06:27 Plt Count 136 L (150-450) k/uL Assessment and Plan Plan: Assessment and plan 1 wide-complex tachycardia #2 status post implantation of AICD #3 ischemic cardiomyopathy #4 systolic congestive heart failure acute on chronic Plan Patient may be able to be discharged home today, we'll make a follow-up appointment in the device clinic and with Dr. Ortega. We will also put the patient on Keflex 500 mg one tablet by mouth 3 times a day to take for 3 days post discharge. DNP note has been reviewed, I agree with a documented findings and plan of care. Patient was seen and examined.
[2018-05-02] MEDS ORDERED: CEPHALEXIN 500 MG CAP PO SCH (16:00)
== END 2018-05-02 15:29 | disposition home or self-care (01) | DRG 226 ==
LOC: EC 10:17 → 6SEL 12:47 → OBSVTOIN 04-28 15:42
PROVIDERS: ADMIT Hospitalist; ATTEND Hospitalist
PROC: 02H63KZ Insertion of Defibrillator Lead into Right Atrium, Percutaneous Approach (ICD-10-PCS; 2018-05-01)
PROC: 0JH608Z Insertion of Defibrillator Generator into Chest Subcutaneous Tissue and Fascia, Open Approach (ICD-10-PCS; principal; 2018-05-01 10:30)
PROC: 02HK3KZ Insertion of Defibrillator Lead into Right Ventricle, Percutaneous Approach (ICD-10-PCS; 2018-05-01 10:30)
DX: I47.2 Ventricular tachycardia (principal); I50.23 Acute on chronic systolic (congestive) heart failure; Z68.42 Body mass index [BMI] 45.0-49.9, adult; I45.2 Bifascicular block; E03.9 Hypothyroidism, unspecified; E78.5 Hyperlipidemia, unspecified; I11.0 Hypertensive heart disease with heart failure; I25.10 Atherosclerotic heart disease of native coronary artery without angina pectoris; I25.5 Ischemic cardiomyopathy; N40.0 Benign prostatic hyperplasia without lower urinary tract symptoms; M19.90 Unspecified osteoarthritis, unspecified site; R00.1 Bradycardia, unspecified; G47.33 Obstructive sleep apnea (adult) (pediatric); E66.01 Morbid (severe) obesity due to excess calories; Z95.1 Presence of aortocoronary bypass graft; Z87.891 Personal history of nicotine dependence; Z79.82 Long term (current) use of aspirin; Z79.899 Other long term (current) drug therapy; Z98.49 Cataract extraction status, unspecified eye; Z96.1 Presence of intraocular lens; Z80.42 Family history of malignant neoplasm of prostate
CPT/HCPCS: 33249; 36415; 71046; 80048; 80053; 80061; 82550; 82553; 83735; 83880; 84443; 84484; 85025; 85027; 85610; 85730; 93306; 93641; 96365; 96366; 96376; 99285

== ENCOUNTER → 2018-06-30 | Outpatient (CLI) | payer MEDICARE ==
[2018-06-30 16:00] LABS: HCT 51.5 % (39.0-53.0); HGB 16.4 gm/dL (13.0-17.5); MCH 30.2 pg (25.0-35.0); MCHC 31.8 g/dL (31.0-37.0); MCV 94.8 fL (80.0-100.0); Mean Platelet Volume 7.6; Platelet Count 151 k/uL (150-450); RBC 5.44 m/uL (4.30-5.90); RDW 13.3 % (11.5-15.5); WBC 6.4 k/uL (3.8-10.6)
== END ==
LOC: LABPAT 15:15
PROVIDERS: ATTEND Internal Medicine Clinical Cardiac Electrophysiology
DX: Z01.812 Encounter for preprocedural laboratory examination (principal); I48.3 Typical atrial flutter; I25.10 Atherosclerotic heart disease of native coronary artery without angina pectoris
CPT/HCPCS: 80051; 82565; 82947; 84520; 85027

== ENCOUNTER 2018-07-11 11:02 | Day surgery (SDC) | payer MEDICARE ==
[2018-07-06 14:41] VITALS: BMI 44.6
[~2018-07-11 11:02] MED LIST: DEXAMETHASONE SOD PHOSPHATE 10 MG/ML 1 ML VIAL IV ONE; HYDROmorphone 0.5 MG/0.5 ML SYRINGE IVP PRN; LIDOCAINE 1% 20 ML VIAL (10MG/ML) FOR IV START INTRADERMA PRN; ONDANSETRON 4 MG/2 ML VIAL IVP ONE; SCOPOLAMINE 1.5MG/72HR PATCH TRANSDERM ONE
[2018-07-11] MEDS: SODIUM CHLORIDE 0.9% 1,000 ML IV SCH (11:38)
[2018-07-11] MEDS ORDERED: HEPARIN SODIUM 1,000 UN/ML (10ML VL) ONE (12:35)
[2018-07-11] MEDS ORDERED: ceFAZolin 1,000 MG VIAL ONE (12:39)
[2018-07-11] MEDS ORDERED: GLYCOPYRROLATE 0.2 MG/ML 2 ML VIAL ONE (12:39)
[2018-07-11] MEDS ORDERED: PROPOFOL 10 MG/ML 20 ML VIAL IV ONE (12:39)
[2018-07-11] MEDS ORDERED: MIDAZOLAM 2 MG/2 ML VIAL ONE (12:39)
[2018-07-11] MEDS ORDERED: SUCCINYLCHOLINE CHLORIDE VIAL 200 MG/10 ML VIAL IV ONE (12:39)
[2018-07-11] MEDS ORDERED: PHENYLEPHRINE-0.9% NACL SYG 1 MG/10 ML SYRINGE ONE (12:39)
[2018-07-11] MEDS ORDERED: NEOSTIGMINE 1 MG/ML 10 ML VIAL ONE (12:39)
[2018-07-11] MEDS ORDERED: ePHEDrine SULFATE/0.9% NACL/PF 50 MG/5 ML SYRINGE IV ONE (12:39)
[2018-07-11] MEDS ORDERED: ROCURONIUM BROMIDE 10 MG/ML 10 ML VIAL IV ONE (12:39)
[2018-07-11] MEDS ORDERED: LIDOCAINE 1% INJ 10MG/ML (20 ML MDV) ONE ×2 (12:39→13:18)
[2018-07-11] MEDS ORDERED: fentaNYL (PF) 50 MCG/ML 2 ML AMP ONE (12:39)
[2018-07-11] MEDS ORDERED: ceFAZolin IN SWFI 2 GM/20 ML SYRINGE IVP ONE (13:15)
[2018-07-11] MEDS ORDERED: LIDOCAINE 1% INJ 10MG/ML (20 ML MDV) SQ ONE (13:32)
[2018-07-11] MEDS ORDERED: HEPARIN SODIUM (1,000 UNIT/ML) 1,000 UNIT in SODIUM CHLORIDE 0.9% 1,000 ML IRRIGATION ONE (14:45)
[2018-07-11] MEDS ORDERED: ACETAMINOPHEN TAB 325 MG TAB PO PRN (14:58)
[2018-07-11] MEDS ORDERED: HYDROcodone/APAP 5-325MG 1 EACH TAB PO PRN (14:58)
[2018-07-11] MEDS ORDERED: ACETAMINOPHEN IV (For NPO) 1,000 MG in EMPTY BAG 1 BAG IVPB ONE (14:58)
[2018-07-11] MEDS: LACTATED RINGERS 1,000 ML IV SCH (16:40)
[2018-07-11] MEDS: APIXABAN 5 MG TAB PO SCH (20:30)
[2018-07-11] MEDS: SACUBITRIL/VALSARTAN 24 MG-26 MG TABLET PO SCH (20:30)
[2018-07-11] MEDS: CARVEDILOL 12.5 MG TAB PO SCH (20:30)
[2018-07-11] MEDS: ASPIRIN 81 MG PO SCH (20:30)
[2018-07-11] MEDS ORDERED: ATORVASTATIN 10 MG TAB PO SCH (21:00)
[2018-07-12] MEDS: LACTATED RINGERS 1,000 ML IV SCH (02:50)
[2018-07-12] MEDS: SODIUM CHLORIDE 0.9% 1,000 ML IV SCH (02:50)
--- NOTE | 2018-07-12 05:26 | PCN ---
PROCEDURE NOTE Mr. Pierson is a patient of Dr. Romero Jacobs and Dr. Ortega who has severe cardiomyopathy and is on heart failure medications. He has paroxysmal atrial flutter with RVR, symptomatic. He is appropriately anticoagulated with Eliquis 5 mg twice daily. He was brought in for diagnostic EP study and radiofrequency ablation for typical atrial flutter. Patient was brought to the EP lab in a fasting state. Written informed consent was obtained prior to the procedure. The right and left groins were prepped and draped as per protocol and 1% lidocaine was used for local anesthesia. The procedure was performed under general anesthesia. IV antibiotics were administered. Venous sheaths were placed in the right and left femoral veins and via these diagnostic mapping and ablation catheters were placed. Catheters were placed in the high right atrium, His bundle area, coronary sinus, RV. Intracardiac echo catheter was placed and mapping ablation catheter was placed. The patient was in sinus rhythm at the start of the study. Cinefluoroscopy showed that he had a dual-chamber ICD which was interrogated and reprogrammed to VVI 40 ppm. Therapies were turned off. At the end of the procedure this was reprogrammed and this was interrogated once again. The lead impedance was stable. Cinefluoroscopy showed that the atrial ventricular leads were in stable position postprocedure. Therapies were turned on. The VT zone of 176 beats per minute, VF zone 214 beats per minute. Appropriate antitachycardia pacing, cardioversion defibrillations were programmed. Long detection intervals were programmed. Pacing programmed at AAIR-DDDR 50 to130 ppm. RV sensitivity at 0.3 mV. Sinus cycle length was 1241 milliseconds. Patient was in IVCD. AK interval 292 milliseconds, QRS 160 milliseconds QT 520 milliseconds, AH interval 180 milliseconds, HV interval 54 milliseconds. Sinus node recovery times at paced cycle length of 600 milliseconds were prolonged at 1559 milliseconds. AV node Wenckebach block greater than 600 milliseconds. VA Wenckebach block greater than 600 milliseconds at baseline. High right atrial pacing was performed. CS pacing was performed. RV pacing was performed. Intracardiac echocardiography was performed. He had a long isthmus and septally there was a pouch, but laterally pouch was minimal in size. The 3D electroanatomic mapping was performed. A complete line of block was made from the tricuspid isthmus to the IVC. This was anatomically completed without any anatomic gaps and thereafter pacing maneuvers showed that the isthmus conduction time was greater than 206 milliseconds in either direction and differential pacing showed that there was complete bidirectional block. Long split potentials were noted all along the line, which were uniform. The isthmus conduction time was uniform all along the line. The catheters were removed the end of the procedure. The patient was extubated and was transferred to telemetry. He tolerated the procedure well without any acute complications. Device was then reprogrammed as described above. RESULT: Diagnostic EP study revealing abnormal AV node function, abnormal sinus node function. Successful radiofrequency ablation for typical atrial flutter with confirmed bidirectional block with differential pacing. PLAN: Continue Eliquis and continue heart failure medications. Follow up with Dr. Ortega. Watch for atrial fibrillation. MMODL / IJN: [id number] /
--- NOTE | 2018-07-12 07:30 | P.DS ---
Providers Attending physician: Gee Chavez Primary care physician: Romero Jacobs MD Hospital Course: Patient is doing well. He has no chest discomfort dizziness lightheadedness or palpitations. His resting comfortably in bed. He is also walking in the room. His groins of healed well there is no hematoma no bruising no bleeding On examination his blood pressure is 120/70 mmHg breathing is normal respirations normal pulse rate in the 70s afebrile 97.9F Groins of healed well no hematoma no bleeding Normal breath sounds no rhonchi no crackles. Equal breath sounds bilaterally Normal heart sounds normal S1 normal S2 no murmurs no gallops no rub Impression Cardio myopathy with congestive heart failure stable Symptomatic paroxysmal atrial flutter status post successful atrial flutter ablation yesterday with confirmed bidirectional block Plan Continue anticoagulation can to current heart failure medications and follow-up with Dr. Ortega within week Patient may be discharged home today by 10 AM if after ambulation his groins are stable Patient Condition at Discharge: Stable Plan - Discharge Summary Discharge Rx Participant: No New Discharge Prescriptions: Continue RX: Spironolactone [Aldactone] 25 mg PO DAILY RX: Simvastatin [Zocor] 20 mg PO HS RX: Aspirin 81 mg PO BID RX: Multivitamin [Men's Multi-Vitamin] 1 tab PO DAILY RX: Fish Oil/Dha/Epa [Fish Oil 1,200 mg Fish Oil] 1 cap PO DAILY RX: Furosemide [Lasix] 40 - 60 mg PO HS PRN PRN Reason: wt gain RX: Ascorbic Acid [Vitamin C] 500 mg PO DAILY RX: Sacubitril/Valsartan [Entresto 24 mg-26 mg Tablet] 1 tab PO BID RX: Apixaban [Eliquis] 5 mg PO BID RX: Carvedilol [Coreg*] 12.5 mg PO BID RX: Benzonatate [Tessalon Perles] 100 mg PO TID PRN PRN Reason: Cough RX: Acetaminophen [Acetaminophen ER] 650 mg PO DIRECTED PRN PRN Reason: Pain RX: Chlorhexidine Gluconate [Periogard] 15 ml PO BID PRN PRN Reason: gingivitis Nystatin Powder 1 applicate TOPICAL BID Discharge Medication List RX: Aspirin 81 mg PO BID 07/18/15 [History] RX: Fish Oil/Dha/Epa [Fish Oil 1,200 mg Fish Oil] 1 cap PO DAILY 07/18/15 [ History] RX: Multivitamin [Men's Multi-Vitamin] 1 tab PO DAILY 07/18/15 [History] RX: Simvastatin [Zocor] 20 mg PO HS 07/18/15 [History] RX: Spironolactone [Aldactone] 25 mg PO DAILY 07/18/15 [History] RX: Ascorbic Acid [Vitamin C] 500 mg PO DAILY 04/27/18 [History] RX: Furosemide [Lasix] 40 - 60 mg PO HS PRN 04/27/18 [History] RX: Sacubitril/Valsartan [Entresto 24 mg-26 mg Tablet] 1 tab PO BID 04/27/18 [ History] Nystatin Powder 1 applicate TOPICAL BID 07/06/18 [History] RX: Acetaminophen [Acetaminophen ER] 650 mg PO DIRECTED PRN 07/06/18 [History ] RX: Apixaban [Eliquis] 5 mg PO BID 07/06/18 [History] RX: Benzonatate [Tessalon Perles] 100 mg PO TID PRN 07/06/18 [History] RX: Carvedilol [Coreg*] 12.5 mg PO BID 07/06/18 [History] RX: Chlorhexidine Gluconate [Periogard] 15 ml PO BID PRN 07/06/18 [History] Follow up Appointment(s)/Referral(s): Afsaneh Ortega MD [STAFF PHYSICIAN] - 1 Week (Follow Dr. Ortega within one week for a groin check) Activity/Diet/Wound Care/Special Instructions: Post EP study - Ablation instructions 1. Keep access sites dry for 2 days. 2. No heavy lifting or straining for 2 days. 3. Avoid bending the hips repeatedly for 2 days. 4. You may go up and down stairs slowly Call if the following is noted 1. Bleeding, increasing swelling or pain at the access sites. 2. Increasing chest discomfort, especially upon taking a deep breath. 3. Increasing shortness of breath, at rest or with exertion. 4. Undue cough / phlegm 5. Difficulty or pain while swallowing. 6. Pain or change in color in the extremities. 7. Fever, chills, rigors. 8. Increasing headache or neurologic symptoms. 9. Dizziness, fainting, palpitations Discharge Disposition: HOME SELF-CARE
[2018-07-12 07:48] VITALS: RESP 18
[2018-07-12] MEDS: ASPIRIN 81 MG PO SCH (08:12)
[2018-07-12] MEDS: CARVEDILOL 12.5 MG TAB PO SCH (08:12)
[2018-07-12] MEDS: APIXABAN 5 MG TAB PO SCH (08:12)
[2018-07-12] MEDS: SACUBITRIL/VALSARTAN 24 MG-26 MG TABLET PO SCH (08:12)
[2018-07-12] MEDS ORDERED: SPIRONOLACTONE 25 MG TAB PO SCH (09:00)
[2018-07-12 11:27] VITALS: BP 108/60; PULSE 51; TEMP 98.4
== END 2018-07-12 12:43 | disposition home or self-care (01) ==
LOC: CATHEP 11:02 → 1SOBS 14:38 → CATHEP 07-12 12:43
PROVIDERS: ATTEND Internal Medicine Clinical Cardiac Electrophysiology
DX: I48.4 Atypical atrial flutter (principal); I11.0 Hypertensive heart disease with heart failure; I50.9 Heart failure, unspecified; I42.8 Other cardiomyopathies; Z95.1 Presence of aortocoronary bypass graft; Z79.01 Long term (current) use of anticoagulants; Z79.82 Long term (current) use of aspirin; Z79.899 Other long term (current) drug therapy
CPT/HCPCS: 93662; 93613; 93653; C1894; C1769 ×2; C1730 ×2; C1759; C1893; C1732; J2250; J0330; J2710; J0690; J2001; J3010; J1644; J2370; J2704

== ENCOUNTER → 2018-08-14 | Outpatient (CLI) | payer MEDICARE | END | disposition home or self-care (01) | LOC: LABWHC1 15:54 | PROVIDERS: ATTEND Urology | DX: C61 Malignant neoplasm of prostate (principal) | CPT/HCPCS: 36415; 84153 ==

== ENCOUNTER 2020-09-14 21:30 | Inpatient (IN) | payer MEDICARE ==
--- NOTE | 2020-09-14 21:59 | ED ---
SOB HPI - General Chief Complaint: Shortness of Breath Stated Complaint: SOB Time Seen by Provider: 09/14/20 21:36 Source: patient, EMS Mode of arrival: EMS - History of Present Illness Initial Comments: Is a 75-year-old male with a history of CAD status post CABG 4 years ago, CHF, pacemaker who follows with Dr. Morin who presents emergency department for progressively worsening shortness of breath and nausea over the last month. The patient states that he's also noted that he's had increasing amounts of lower extremity edema. He states that the shortness of breath is worse with lying flat and also with exertion. He was recently given home oxygen which she has used however states that even when he exerts himself he still has the shortness of breath. He states that he was found to have pulmonary edema number of weeks ago and was placed on Lasix 200 mg daily for 5 days. He has since been taking 60 mg in the morning and 40 mg at night. He states he still has noticed that he's had increasing amounts of fluid in his lower extremities. Spoke with Dr. White 2 days ago who stated that if his symptoms worsened he may require admission. He reportedly had a neck guard event last month however does not know the results of this. He's been compliant with his medications. The patient states that his nausea seems to be improved with eating and also with [id number] and antacids. He states that he has not noticed any dark or bloody stools. He does take liquids however. He states he has no nausea currently. No other complaints. - Related Data Home Medications Medication Instructions Recorded Confirmed Multivitamin [Men's Multi-Vitamin] 1 tab PO HS@192907/18/15 09/14/20 Simvastatin [Zocor] 20 mg PO HS@192907/18/15 09/14/20 Spironolactone [Aldactone] 25 mg PO DAILY@72907/18/15 09/14/20 Ascorbic Acid [Vitamin C] 500 mg PO BID@729,192904/27/18 09/14/20 Furosemide [Lasix] 40 mg PO HS@192904/27/18 09/14/20 Sacubitril/Valsartan [Entresto 24 1 tab PO BID@04/27/18 09/14/20 mg-26 mg Tablet] Apixaban [Eliquis] 5 mg PO BID@729,192907/06/18 09/14/20 Benzonatate [Tessalon Perles] 100 mg PO TID PRN 07/06/18 09/14/20 Nystatin Powder 1 applicate TOPICAL BID 07/06/18 09/14/20 carvediloL [Coreg*] 6.25 mg PO BID@729,192907/06/18 09/14/20 Albuterol Nebulized [Ventolin 2.5 mg INHALATION RT-QID PRN 09/14/20 09/14/20 Nebulized] Albuterol Sulfate [Ventolin HFA] 1 - 2 puff INHALATION RT-Q4H PRN 09/14/20 09/14/20 Aspirin EC [Ecotrin Low Dose] 81 mg PO BID@729,192909/14/20 09/14/20 Docusate [Colace] 100 mg PO HS@192909/14/20 09/14/20 Furosemide [Lasix] 60 mg PO DAILY@72909/14/20 09/14/20 Mag Hydrox/Al Hydrox/Simeth 30 ml PO Q6H PRN 09/14/20 09/14/20 [Maalox] Melatonin 20 mg PO HS 09/14/20 09/14/20 Nystatin [Nystop] 1 applic TOPICAL BID 09/14/20 09/14/20 Omeprazole 20 mg PO DAILY@72909/14/20 09/14/20 Sildenafil [Revatio] 60 - 100 mg PO DAILY PRN 09/14/20 09/14/20 Allergies Allergy/AdvReac Type Severity Reaction Status Date / Time No Known Allergies Allergy Verified 09/14/20 22:25 Review of Systems ROS Statement: Those systems with pertinent positive or pertinent negative responses have been documented in the HPI. ROS Other: All systems not noted in ROS Statement are negative. Past Medical History Past Medical History: Heart Failure, Hyperlipidemia, Osteoarthritis (OA), Prostate Disorder, Sleep Apnea/CPAP/BIPAP, Thyroid Disorder Additional Past Medical History / Comment(s): uses oxygen @2l PRN, borderline diabetes prior to wt loss, occ lower leg edema, History of Any Multi-Drug Resistant Organisms: None Reported Past Surgical History: Adenoidectomy, Coronary Bypass/CABG, Heart Catheteriz ation, Tonsillectomy Additional Past Surgical History / Comment(s): parathyroidectomy, cataract surg., cardiac cath. 10-16-15 Past Anesthesia/Blood Transfusion Reactions: No Reported Reaction Type of Cardiac Device: Permanent Pacemaker, AICD Device Placement Date:: 05/2018 Past Psychological History: No Psychological Hx Reported Smoking Status: Former smoker Past Alcohol Use History: None Reported Past Drug Use History: None Reported - Past Family History Father Family Medical History: Cancer Additional Family Medical History / Comment(s): Father had prostate cancer with mets to the bone. He at age 76 yrs. General Exam - General Exam Comments Initial Comments: Constitutional: [Awake alert] [Appears comfortable] Head: [Normocephalic atraumatic] Eyes: [no conjunctival injection] [No scleral icterus] [EOMI] Neck: [No JVD] [Supple] Heart: [Regular rate rhythm] [normal S1-S2] [no murmurs] Lungs: [Clear to auscultation bilaterally] [No wheezing] Bibasilar rales Abdomen: [Soft] [nondistended] [nontender]Obese Extremities: Paying edema to bilateral lower Extremities up to the knees [DP pulses intact] [Radial pulses intact] Neuro: [A&Ox3] [No focal neurologic deficits] Psych: [Appropriate mood and affect] Course Vital Signs 09/14/20 09/14/20 21:33 21:43 Temperature 97.2 F L Pulse Rate 67 Respiratory 20 20 Rate Blood Pressure 116/97 - Reevaluation(s) Reevaluation #1: EKG showing atrial paced rhythm with a rate of 69. There is no abnormal ST segment changes or T-wave inversions. QTC is 465. QRS is widened due to the pacemaker. Other intervals appear normal. No ectopy. 09/14/20 21:59 Medical Decision Making - Medical Decision Making Is a 75-year-old male who presents emergency department for persistent shortness of breath and nausea over the last month. Patient appeared fluid overloaded on examination. Chest x-ray did confirm this and had increased pulmonary vascular congestion. BNP was elevated. The patient will be started on IV Lasix for diuresis. He will require admission since he's had persistent symptoms despite home diuresis. He had no nausea vomiting or emergency department. Dr. oCrtez accepts the admission. - Lab Data Result diagrams: 09/14/20 21:58 09/14/20 21:58 Lab Results 09/14/20 09/14/20 09/14/20 Range/Units 21:57 21:58 21:58 WBC 7.5 (3.8-10.6) k/uL RBC 5.28 (4.30-5.90) m/uL Hgb 16.1 (13.0-17.5) gm/dL Hct 49.2 (39.0-53.0) % MCV 93.2 (80.0-100.0) fL MCH 30.4 (25.0-35.0) pg MCHC 32.6 (31.0-37.0) g/dL RDW 13.8 (11.5-15.5) % Plt Count 129 L (150-450) k/uL MPV 9.1 Neutrophils % 78 % Lymphocytes % 11 % Monocytes % 7 % Eosinophils % 3 % Basophils % 1 % Neutrophils # 5.9 (1.3-7.7) k/uL Lymphocytes # 0.8 L (1.0-4.8) k/uL Monocytes # 0.5 (0-1.0) k/uL Eosinophils # 0.2 (0-0.7) k/uL Basophils # 0.0 (0-0.2) k/uL PT 12.4 H (9.0-12.0) sec INR 1.2 H (<1.2) APTT 25.5 (22.0-30.0) sec Sodium (137-145) mmol/L Potassium (3.5-5.1) mmol/L Chloride (98-107) mmol/L Carbon Dioxide (22-30) mmol/L Anion Gap mmol/L BUN (9-20) mg/dL Creatinine (0.66-1.25) mg/dL Est GFR (CKD-EPI)AfAm (>60 ml/min/1.73 sqM) Est GFR (CKD-EPI)NonAf (>60 ml/min/1.73 sqM) Glucose (74-99) mg/dL Calcium (8.4-10.2) mg/dL Total Bilirubin (0.2-1.3) mg/dL AST (17-59) U/L ALT (4-49) U/L Alkaline Phosphatase (38-126) U/L NT-Pro-B Natriuret Pep pg/mL Total Protein (6.3-8.2) g/dL Albumin (3.5-5.0) g/dL Blood Type Recheck No Previous Record Bld Type Recheck Status CABO Indicated Spec Expiration Date 09/17/2020 - 235609/14/20 09/14/20 Range/Units 21:58 21:58 WBC (3.8-10.6) k/uL RBC (4.30-5.90) m/uL Hgb (13.0-17.5) gm/dL Hct (39.0-53.0) % MCV (80.0-100.0) fL MCH (25.0-35.0) pg MCHC (31.0-37.0) g/dL RDW (11.5-15.5) % Plt Count (150-450) k/uL MPV Neutrophils % % Lymphocytes % % Monocytes % % Eosinophils % % Basophils % % Neutrophils # (1.3-7.7) k/uL Lymphocytes # (1.0-4.8) k/uL Monocytes # (0-1.0) k/uL Eosinophils # (0-0.7) k/uL Basophils # (0-0.2) k/uL PT (9.0-12.0) sec INR (<1.2) APTT (22.0-30.0) sec Sodium 137 (137-145) mmol/L Potassium 4.5 (3.5-5.1) mmol/L Chloride 101 (98-107) mmol/L Carbon Dioxide 26 (22-30) mmol/L Anion Gap 10 mmol/L BUN 38 H (9-20) mg/dL Creatinine 1.26 H (0.66-1.25) mg/dL Est GFR (CKD-EPI)AfAm 65 (>60 ml/min/1.73 sqM) Est GFR (CKD-EPI)NonAf 56 (>60 ml/min/1.73 sqM) Glucose 150 H (74-99) mg/dL Calcium 9.6 (8.4-10.2) mg/dL Total Bilirubin 0.8 (0.2-1.3) mg/dL AST 64 H (17-59) U/L ALT 88 H (4-49) U/L Alkaline Phosphatase 124 (38-126) U/L NT-Pro-B Natriuret Pep 5110 pg/mL Total Protein 6.3 (6.3-8.2) g/dL Albumin 3.8 (3.5-5.0) g/dL Blood Type Recheck Bld Type Recheck Status Spec Expiration Date Disposition Clinical Impression: CHF exacerbation Disposition: ADMITTED IP TO THIS HOSP Condition: Stable Referrals: Romero Jacobs MD [Primary Care Provider] - 1-2 days
--- NOTE | 2020-09-14 22:14 | XR ---
EXAMINATION TYPE: XR chest 1V portable DATE OF EXAM: 09/14/2020 COMPARISON: 05/02/2018 HISTORY: Fall. Nausea. Short of breath. TECHNIQUE: FINDINGS: Heart is enlarged. There is mild pulmonary vascular congestion. There is left axillary pace maker. There are sternal wires. IMPRESSION: Moderate cardiomegaly and probable mild heart failure. Pulmonary vascularity increased co mpared to old exam. Heart probably increased compared to old exam.
[2020-09-14 22:18] LABS: Basophils % (A) 1 %; Eosinophils # (A) 0.2 k/uL (0-0.7); Eosinophils % (A) 3 %; HCT 49.2 % (39.0-53.0); HGB 16.1 gm/dL (13.0-17.5); Lymphocytes # (A) 0.8 k/uL (1.0-4.8); Lymphocytes % (A) 11 %; MCH 30.4 pg (25.0-35.0); MCHC 32.6 g/dL (31.0-37.0); MCV 93.2 fL (80.0-100.0); Mean Platelet Volume 9.1; Monocytes # (A) 0.5 k/uL (0-1.0); Monocytes % (A) 7 %; Neutrophils # (A) 5.9 k/uL (1.3-7.7); Neutrophils % (A) 78 %; Platelet Count 129 k/uL (150-450); RBC 5.28 m/uL (4.30-5.90); RDW 13.8 % (11.5-15.5); WBC 7.5 k/uL (3.8-10.6)
[2020-09-14 22:27] LABS: Albumin 3.8 g/dL (3.5-5.0); Calcium 9.6 mg/dL (8.4-10.2); Potassium 4.5 mmol/L (3.5-5.1); Total Bilirubin 0.8 mg/dL (0.2-1.3); Total Protein 6.3 g/dL (6.3-8.2)
[2020-09-14 22:35] LABS: INR 1.2 (<1.2); Partial Thromboplastin Time 25.5 sec (22.0-30.0); Prothrombin Time 12.4 sec (9.0-12.0)
[2020-09-14] MEDS ORDERED: FUROSEMIDE 10 MG/ML 10 ML VIAL IV STA (22:43)
[2020-09-14] MEDS ORDERED: FUROSEMIDE 10 MG/ML 4 ML VIAL IV STA (23:06)
[2020-09-14] MEDS ORDERED: ASPIRIN 81 MG PO STA (23:34)
[2020-09-15] MEDS: FUROSEMIDE 10 MG/ML 10 ML VIAL IVP SCH ×3 (05:54→19:37)
[2020-09-15] MEDS ORDERED: ALBUTEROL NEBULIZED 2.5 MG/3 ML INHALATION PRN (07:13)
[2020-09-15] MEDS ORDERED: BENZONATATE 100 MG CAP PO PRN (07:13)
[2020-09-15] MEDS ORDERED: ASPIRIN 81 MG PO SCH (07:30)
[2020-09-15] MEDS: SPIRONOLACTONE 25 MG TAB PO SCH (08:11)
[2020-09-15] MEDS: carvediloL 6.25 MG TAB PO SCH ×2 (08:11→18:36)
[2020-09-15] MEDS: APIXABAN 5 MG TAB PO SCH ×2 (08:11→18:36)
[2020-09-15 09:02] LABS: Calcium 9.4 mg/dL (8.4-10.2); Magnesium 2.6 mg/dL (1.6-2.3); Potassium 5.1 mmol/L (3.5-5.1)
[2020-09-15] MEDS: SACUBITRIL/VALSARTAN 24 MG-26 MG TABLET PO SCH ×2 (09:06→18:36)
[2020-09-15] MEDS: NYSTATIN 100,000 UNIT/GM POWD 15 GM TOPICAL SCH ×2 (09:06→19:37)
[2020-09-15] MEDS ORDERED: PANTOPRAZOLE 40 MG/10 ML VIAL IVP SCH (10:00)
[2020-09-15] MEDS: PANTOPRAZOLE 40 MG TABLET PO SCH ×2 (10:40→17:14)
--- NOTE | 2020-09-15 12:36 | P.CRDCN ---
History of Present Illness Consult date: 09/15/20 History of present illness: CHIEF COMPLAINT: congestive heart failure HISTORY OF PRESENT ILLNESS: This is a 75-year-old male with a past medical history significant for ischemic cardiomyopathy with previous AICD, coronary artery disease with previous CABG, paroxysmal atrial fibrillation, congestive heart failure, hypertension, and hyperlipidemia. Patient follows in the office with Dr. Ortega. We have been asked to see the patient in consultation for CHF. Patient examined this morning at the bedside. He reports feeling short of breath over the last month with increased swelling to his lower extremities. He states he has been having some nausea recently and the only thing he has been able to eat without getting nauseous is fast food. He reports increasing his lasix dosage last week without improvement in his shortness of breath. He denies chest pain or pressure. Denies cough or congestion. Denies dizziness or lightheadedness. DIAGNOSTICS: EKG reveals paced rhythm with right bundle branch block and left axis deviation Chest xray moderate cardiomegaly and probable mild heart failure. Laboratory data: WBC 7.5. Hemoglobin 16.1. Platelet count 129. Sodium 137. Potassium 5.1. BUN 38. Creatinine 1.17. Magnesium 2.6. troponin 0.063. 0.078. 0.068. BNP 5110. Current home cardiac medications include Lasix 60 mg in the morning and 40 mg at night, carvedilol 6.25 mg twice a day, Aldactone 25 mg daily, Zocor 20 mg daily, Entresto 24-26mg daily, spirin 81 mg daily, Eliquis 5 mg twice a day Echocardiogram completed 09/08/2020 revealed ejection fraction 20-25% Patient underwent Linda scan in 2018 which was negative for ischemia REVIEW OF SYSTEMS: At the time of my exam: CONSTITUTIONAL: Denies fever or chills. HEENT: Denies blurred vision, vision changes, or eye pain. Denies hemoptysis CARDIOVASCULAR: Denies chest pain, orthopnea, PND or palpitations RESPIRATORY: No shortness of breath. GASTROINTESTINAL: Denies abdominal pain. Denies nausea or vomiting. HEMATOLOGIC: Denies bleeding disorders. GENITOURINARY: Denies any blood in urine. SKIN: Denies pruitis. Denies rash. PHYSICAL EXAM: VITAL SIGNS: Reviewed. GENERAL: Well-developed in no acute distress. HEENT: Head is normocephalic. Pupils are equal, round. Sclerae anicteric. Mucous membranes of the mouth are moist. Neck supple. No JVD or thyromegaly LUNGS: Respirations even and unlabored. Lungs diminished bilaterally. HEART: Regular rate and rhythm. S1 and S2 heard. Systolic murmur noted ABDOMEN: Soft. Nondistended. Nontender. EXTREMITIES: Normal range of motion. No clubbing or cyanosis. Peripheral pulses intact. 2-3+ bilateral lower extremity edema NEUROLOGIC: Awake and alert. Oriented x 3. ASSESSMENT: Acute exacerbation of chronic systolic heart failure, EF 20-25% Nausea, patient reports only being able to tolerate fast food recently Coronary artery disease with previous CABG Paroxysmal atrial fibrillation on long-term anticoagulation with Eliquis Ischemic cardiomyopathy with previous AICD, EF 20-25% Abnormal troponins, secondary to acute exacerbation of heart failure Hypertension Hyperlipidemia Morbid obesity: BMI 47.5 PLAN: No need to repeat echo and this was performed on 09/08/20 Continue IV Lasix Monitor kidney function Daily weights Accurate I&O Education provided regarding diet and importance of avoiding fast food for all meals due to sodium Consult GI for persistent nausea Further recommendations pending patient course Nurse practitioner note has been reviewed by physician. Signing provider agrees with the documented findings, assessment, and plan of care. Past Medical History Past Medical History: Atrial Fibrillation, Heart Failure, Hyperlipidemia, Osteoarthritis (OA), Prostate Disorder, Sleep Apnea/CPAP/BIPAP, Thyroid Disorder Additional Past Medical History / Comment(s): uses oxygen @2l PRN, KATHRINE not using C PAP at home currently, occ lower leg edema, History of Any Multi-Drug Resistant Organisms: None Reported Past Surgical History: Adenoidectomy, Coronary Bypass/CABG, Heart Catheterization, Tonsillectomy Additional Past Surgical History / Comment(s): parathyroidectomy, cataract surg., cardiac cath. 10-16-15 Past Anesthesia/Blood Transfusion Reactions: No Reported Reaction Type of Cardiac Device: Permanent Pacemaker, AICD Device Placement Date:: 05/2018 Past Psychological History: No Psychological Hx Reported Additional Psychological History / Comment(s): Pt lives at home with granddaughter. He uses walker at home Smoking Status: Never smoker Past Alcohol Use History: None Reported Past Drug Use History: None Reported - Past Family History Father Family Medical History: Cancer Additional Family Medical History / Comment(s): Father had prostate cancer with mets to the bone. He at age 76 yrs. Medications and Allergies Home Medications Medication Instructions Recorded Confirmed Type Multivitamin [Men's Multi-Vitamin] 1 tab PO HS@192907/18/15 09/14/20 History Simvastatin [Zocor] 20 mg PO HS@192907/18/15 09/14/20 History Spironolactone [Aldactone] 25 mg PO DAILY@72907/18/15 09/14/20 History Ascorbic Acid [Vitamin C] 500 mg PO BID@729,192904/27/18 09/14/20 History Furosemide [Lasix] 40 mg PO HS@192904/27/18 09/14/20 History Sacubitril/Valsartan [Entresto 24 1 tab PO BID@729,192904/27/18 09/14/20 History mg-26 mg Tablet] Apixaban [Eliquis] 5 mg PO BID@729,192907/06/18 09/14/20 History Benzonatate [Tessalon Perles] 100 mg PO TID PRN 07/06/18 09/14/20 History Nystatin Powder 1 applicate TOPICAL BID 07/06/18 09/14/20 History carvediloL [Coreg*] 6.25 mg PO BID@729,192907/06/18 09/14/20 History Albuterol Nebulized [Ventolin 2.5 mg INHALATION RT-QID PRN 09/14/20 09/14/20 History Nebulized] Albuterol Sulfate [Ventolin HFA] 1 - 2 puff INHALATION RT-Q4H PRN 09/14/20 09/14/20 History Aspirin EC [Ecotrin Low Dose] 81 mg PO BID@729,192909/14/20 09/14/20 History Docusate [Colace] 100 mg PO HS@192909/14/20 09/14/20 History Furosemide [Lasix] 60 mg PO DAILY@72909/14/20 09/14/20 History Mag Hydrox/Al Hydrox/Simeth 30 ml PO Q6H PRN 09/14/20 09/14/20 History [Maalox] Melatonin 20 mg PO HS 09/14/20 09/14/20 History Nystatin [Nystop] 1 applic TOPICAL BID 09/14/20 09/14/20 History Omeprazole 20 mg PO DAILY@0730 09/14/20 09/14/20 History Sildenafil [Revatio] 60 - 100 mg PO DAILY PRN 09/14/20 09/14/20 History Allergies Allergy/AdvReac Type Severity Reaction Status Date / Time No Known Allergies Allergy Verified 09/14/20 22:25 Physical Exam Vitals: Vital Signs Temp Pulse Pulse Resp BP BP Pulse Ox 09/15/20 11:33 97.5 F L 69 20 95/60 97 09/15/20 09:05 113/68 09/15/20 08:07 97.4 F L 66 22 102/65 97 09/15/20 08:00 66 22 09/15/20 04:00 98.5 F 70 20 108/66 97 09/15/20 02:00 70 18 09/15/20 00:23 97.8 F 71 18 103/73 98 09/15/20 00:15 98.4 F 70 20 128/86 98 09/14/20 23:45 75 16 104/74 95 09/14/20 23:03 99/67 09/14/20 23:00 67 18 95/75 97 09/14/20 22:00 70 18 130/107 97 09/14/20 21:43 20 09/14/20 21:33 97.2 F L 67 20 116/97 Intake and Output 09/14/20 09/15/20 09/15/20 22:59 06:59 14:59 Intake Total 480 590 Output Total 300 Balance 180 590 Intake: Oral 480 590 Output: Urine 300 Other: Voiding Method Urinal Urinal # Voids 1 Weight 149.685 kg 154.4 kg Results 09/14/20 21:58 09/15/20 03:21 Cardiac Enzymes 09/14/20 09/14/20 09/15/20 Range/Units 21:58 21:58 01:18 AST 64 H (17-59) U/L Troponin I 0.063 H* 0.078 H* (0.000-0.034) ng/mL 09/15/20 Range/Units 03:21 AST (17-59) U/L Troponin I 0.068 H* (0.000-0.034) ng/mL Coagulation 09/14/20 Range/Units 21:58 PT 12.4 H (9.0-12.0) sec APTT 25.5 (22.0-30.0) sec CBC 09/14/20 Range/Units 21:58 WBC 7.5 (3.8-10.6) k/uL RBC 5.28 (4.30-5.90) m/uL Hgb 16.1 (13.0-17.5) gm/dL Hct 49.2 (39.0-53.0) % Plt Count 129 L (150-450) k/uL Comprehensive Metabolic Panel 09/14/20 09/15/20 Range/Units 21:58 03:21 Sodium 137 137 (137-145) mmol/L Potassium 4.5 5.1 (3.5-5.1) mmol/L Chloride 101 101 (98-107) mmol/L Carbon Dioxide 26 30 (22-30) mmol/L BUN 38 H 38 H (9-20) mg/dL Creatinine 1.26 H 1.17 (0.66-1.25) mg/dL Glucose 150 H 117 H (74-99) mg/dL Calcium 9.6 9.4 (8.4-10.2) mg/dL AST 64 H (17-59) U/L ALT 88 H (4-49) U/L Alkaline Phosphatase 124 (38-126) U/L Total Protein 6.3 (6.3-8.2) g/dL Albumin 3.8 (3.5-5.0) g/dL Current Medications Generic Name Dose Route Start Last Admin Trade Name Freq PRN Reason Stop Dose Admin Albuterol Sulfate 2.5 mg 09/15/20 07:13 Albuterol Nebulized 2.5 Mg/3 Ml INHALATION RT-QID PRN Shortness Of Breath Apixaban 5 mg 09/15/20 07:30 09/15/20 08:11 Apixaban 5 Mg Tab PO 5 mg BID@ [facility] Administration Aspirin 81 mg 09/15/20 07:30 09/15/20 08:11 Aspirin 81 Mg PO 81 mg BID@ [facility] Administration Atorvastatin Calcium 10 mg 09/15/20 19:30 Atorvastatin 10 Mg Tab PO HS@1929 [facility] Benzonatate 100 mg 09/15/20 07:13 Benzonatate 100 Mg Cap PO TID PRN Cough Carvedilol 6.25 mg 09/15/20 07:30 09/15/20 08:11 Carvedilol 6.25 Mg Tab PO 6.25 mg BID@ [facility] Administration Furosemide 60 mg 09/15/20 06:00 09/15/20 05:54 Furosemide 10 Mg/Ml 10 Ml Vial IVP 60 mg Q8H [facility] Administration Nystatin 1 applic 09/15/20 09:00 09/15/20 09:06 Nystatin 100,000 Unit/Gm Powd 15 Gm TOPICAL 1 applic BID [facility] Administration Ondansetron HCl 4 mg 09/15/20 07:15 Ondansetron 4 Mg/2 Ml Vial IVP Q6HR PRN Nausea And Vomiting Pantoprazole Sodium 40 mg 09/15/20 10:30 09/15/20 10:40 Pantoprazole 40 Mg Tablet PO 40 mg AC-BID [facility] Administration Sacubitril/Valsartan 1 each 09/15/20 07:30 09/15/20 09:06 Sacubitril/Valsartan 24 Mg-26 Mg Tablet PO 1 each BID@ [facility] Administration Sodium Chloride 10 ml 09/15/20 09:00 09/15/20 09:06 Sodium Chloride 0.9% Flush 10 Ml Syringe IV 10 ml BID [facility] Administration Spironolactone 25 mg 09/15/20 07:30 09/15/20 08:11 Spironolactone 25 Mg Tab PO 25 mg DAILY@0730 [facility] Administration Intake and Output 09/14/20 09/15/20 09/15/20 22:59 06:59 14:59 Intake Total 480 590 Output Total 300 Balance 180 590 Intake: Oral 480 590 Output: Urine 300 Other: Voiding Method Urinal Urinal # Voids 1 Weight 149.685 kg 154.4 kg 09/14/20 21:58 09/15/20 03:21
--- NOTE | 2020-09-15 13:38 | US ---
EXAMINATION TYPE: US gallbladder DATE OF EXAM: 09/15/2020 COMPARISON: NONE CLINICAL HISTORY: persistent nausea,elevated LFTS. indigestion, nausea, elevated liver enzymes EXAM MEASUREMENTS: Liver Length: 20.0 cm Gallbladder Wall: 0.4 cm CBD: 0.4 cm Right Kidney: 12.1 x 4.9 x 4.6 cm Pancreas: Obscured by bowel gas Liver: enlarged Gallbladder: no evidence of stones, thickened GB wall Evidence for sonographic Hyatt's sign: no CBD: appears wnl Right Kidney: no evidence of hydronephrosis IMPRESSION: Gallbladder wall thickening.
[2020-09-15 15:10] VITALS: BMI 47.5
[2020-09-15] MEDS: ATORVASTATIN 10 MG TAB PO SCH (18:36)
--- NOTE | 2020-09-15 21:47 | P.HPIM ---
History of Present Illness H&P Date: 09/15/20 Chief Complaint: Short of breath History of presenting complaint: This is a 75-year-old patient of Dr. Romero Jacobs. Follows with ticket marker Dr. Clements. Chronic stable medical conditions include atrial fibrillation, osteoarthritis, hyperlipidemia, prostate disorder, obstructive sleep apnea does not use CPAP, hypothyroid coronary artery disease with bypass. Does have a walker at home. Patient been progressively worsening short of breath for 3-4 weeks. Slight cough. Significant edema. Appetite is okay. No fever no chills. Review of systems: GEN.: Tired EYES: None HEENT: None NECK: None RESPIRATORY: [As above CARDIOVASCULAR: As above GASTROINTESTINAL: None GENITOURINARY: None MUSCULOSKELETAL: Joint pains LYMPHATICS: None DERMATOLOGICAL: Red rash in the force including the groin and below the breast HEMATOLOGICAL: None PSYCHIATRY: None NEUROLOGICAL: None Past medical history to include: Atrial fibrillation, CHF, hyperlipidemia, osteoarthritis, prostate disorder, obstructive sleep apnea does not use CPAP, home oxygen 2 L when necessary, cor onary artery disease with bypass, thyroidectomy, permanent pacemaker with AICD Social history: Lives with his granddaughter. Does use a walker. Patient quit daily using a pipe 40 years ago. No alcohol. Physical examination: VITAL SIGNS: 97.2, 67, 20, 116/97, 97% on 2 L GENERAL: BMI 47.5, laying in bed, awake short of breath. EYES: Pupils equal. Conjunctiva normal. HEENT: External appearance of nose and ears normal, oral cavity grossly normal. NECK: JVD unable to assess; masses not palpable. HEART: First and second heart sounds are normal; significant edema. LUNGS: Respiratory rate increased; basal crackles. ABDOMEN: Soft, nontender, liver spleen not palpable, no masses palpable. DERMATOLOGICAL: Redness and regular skin both the groin falls and below the breast fold PSYCH: Alert and oriented x3; mood and affect normal. NEUROLOGICAL: Cranial nerves grossly intact; no facial asymmetry, power and sensation grossly intact. MUSCULAR skeletal: Evidence of OA LYMPHATICS: No lymph nodes palpable in the axilla and neck INVESTIGATIONS, reviewed in the clinical context: White count 7.5 hemoglobin 16.1 platelets 129 potassium 4.5 bun 38 creatinine 1.26 Troponin I 0.063, 0.078, 0.068 ProBNP 5110 Coronavirus PCR-not detected EKG tracing personally reviewed by me-[id number] showed paced rhythm Chest x-ray film personally reviewed by me-cardiomegaly, pulmonary edema. Portable film Assessment and plan: -Acute on chronic congestive heart failure exacerbation, EF not known. Patient started on IV Lasix. Continue Coreg, Aldactone, Entresto -Persistent atrial fibrillation, on eliquis -Intertriginous ezra infection of bilateral groin and below the breast area. Use topical nystatin powder. Patient advised not to use tight underwear instead uses cotton boxers -AICD -Hyperlipidemia-on Zocor -Chronic insomnia, multifactorial continued use melatonin -Primary osteoarthritis, use Tylenol when necessary -BPH -Obstructive sleep apnea patient does not use CPAP -Morbid obesity BMI 47.5. Follow-up with dietitian's outpatient and follow with PCP -Coronary artery disease with a history of coronary bypass -GERD continue omeprazole Follow BMP, BNP. Cardiology consulted. Strict I's and O's. Past Medical History Past Medical History: Atrial Fibrillation, Heart Failure, Hyperlipidemia, Osteoarthritis (OA), Prostate Disorder, Sleep Apnea/CPAP/BIPAP, Thyroid Disorder Additional Past Medical History / Comment(s): uses oxygen @2l PRN, KATHRINE not using C PAP at home currently, occ lower leg edema, History of Any Multi-Drug Resistant Organisms: None Reported Past Surgical History: Adenoidectomy, Coronary Bypass/CABG, Heart Catheterization, Tonsillectomy Additional Past Surgical History / Comment(s): parathyroidectomy, cataract surg., cardiac cath. 10-16-15 Past Anesthesia/Blood Transfusion Reactions: No Reported Reaction Type of Cardiac Device: Permanent Pacemaker, AICD Device Placement Date:: 05/2018 Past Psychological History: No Psychological Hx Reported Additional Psychological History / Comment(s): Pt lives at home with granddaughter. He uses walker at home Smoking Status: Never smoker Past Alcohol Use History: None Reported Past Drug Use History: None Reported - Past Family History Father Family Medical History: Cancer Additional Family Medical History / Comment(s): Father had prostate cancer with mets to the bone. He at age 76 yrs. Medications and Allergies Home Medications Medication Instructions Recorded Confirmed Type Multivitamin [Men's Multi-Vitamin] 1 tab PO HS@192907/18/15 09/14/20 History Simvastatin [Zocor] 20 mg PO HS@192907/18/15 09/14/20 History Spironolactone [Aldactone] 25 mg PO DAILY@72907/18/15 09/14/20 History Ascorbic Acid [Vitamin C] 500 mg PO BID@729,192904/27/18 09/14/20 History Furosemide [Lasix] 40 mg PO HS@192904/27/18 09/14/20 History Sacubitril/Valsartan [Entresto 24 1 tab PO BID@729,192904/27/18 09/14/20 History mg-26 mg Tablet] Apixaban [Eliquis] 5 mg PO BID@729,192907/06/18 09/14/20 History Benzonatate [Tessalon Perles] 100 mg PO TID PRN 07/06/18 09/14/20 History Nystatin Powder 1 applicate TOPICAL BID 07/06/18 09/14/20 History carvediloL [Coreg*] 6.25 mg PO BID@729,192907/06/18 09/14/20 History Albuterol Nebulized [Ventolin 2.5 mg INHALATION RT-QID PRN 09/14/20 09/14/20 History Nebulized] Albuterol Sulfate [Ventolin HFA] 1 - 2 puff INHALATION RT-Q4H PRN 09/14/20 09/14/20 History Aspirin EC [Ecotrin Low Dose] 81 mg PO BID@729,192909/14/20 09/14/20 History Docusate [Colace] 100 mg PO HS@192909/14/20 09/14/20 History Furosemide [Lasix] 60 mg PO DAILY@72909/14/20 09/14/20 History Mag Hydrox/Al Hydrox/Simeth 30 ml PO Q6H PRN 09/14/20 09/14/20 History [Maalox] Melatonin 20 mg PO HS 09/14/20 09/14/20 History Nystatin [Nystop] 1 applic TOPICAL BID 09/14/20 09/14/20 History Omeprazole 20 mg PO DAILY@72909/14/20 09/14/20 History Sildenafil [Revatio] 60 - 100 mg PO DAILY PRN 09/14/20 09/14/20 History Allergies Allergy/AdvReac Type Severity Reaction Status Date / Time No Known Allergies Allergy Verified 09/14/20 22:25 Physical Exam Vitals: Vital Signs Temp Pulse Pulse Resp BP BP Pulse Ox 09/15/20 11:33 97.5 F L 69 20 95/60 97 09/15/20 09:05 113/68 09/15/20 08:07 97.4 F L 66 22 102/65 97 09/15/20 08:00 66 22 09/15/20 04:00 98.5 F 70 20 108/66 97 09/15/20 02:00 70 18 09/15/20 00:23 97.8 F 71 18 103/73 98 09/15/20 00:15 98.4 F 70 20 128/86 98 09/14/20 23:45 75 16 104/74 95 09/14/20 23:03 99/67 09/14/20 23:00 67 18 95/75 97 09/14/20 22:00 70 18 130/107 97 09/14/20 21:43 20 09/14/20 21:33 97.2 F L 67 20 116/97 Intake and Output 09/14/20 09/15/20 09/15/20 22:59 06:59 14:59 Intake Total 480 590 Output Total 300 Balance 180 590 Intake: Oral 480 590 Output: Urine 300 Other: Voiding Method Urinal Urinal # Voids 1 Weight 149.685 kg 154.4 kg Results CBC & Chem 7: 09/14/20 21:58 09/15/20 03:21 Labs: Abnormal Lab Results - Last 24 Hours (Table) 09/14/20 09/14/20 09/14/20 Range/Units 21:58 21:58 21:58 Plt Count 129 L (150-450) k/uL Lymphocytes # 0.8 L (1.0-4.8) k/uL PT 12.4 H (9.0-12.0) sec INR 1.2 H (<1.2) BUN 38 H (9-20) mg/dL Creatinine 1.26 H (0.66-1.25) mg/dL Glucose 150 H (74-99) mg/dL Magnesium (1.6-2.3) mg/dL AST 64 H (17-59) U/L ALT 88 H (4-49) U/L Troponin I (0.000-0.034) ng/mL 09/14/20 09/15/20 09/15/20 Range/Units 21:58 01:18 03:21 Plt Count (150-450) k/uL Lymphocytes # (1.0-4.8) k/uL PT (9.0-12.0) sec INR (<1.2) BUN (9-20) mg/dL Creatinine (0.66-1.25) mg/dL Glucose (74-99) mg/dL Magnesium (1.6-2.3) mg/dL AST (17-59) U/L ALT (4-49) U/L Troponin I 0.063 H* 0.078 H* 0.068 H* (0.000-0.034) ng/mL 09/15/20 Range/Units 03:21 Plt Count (150-450) k/uL Lymphocytes # (1.0-4.8) k/uL PT (9.0-12.0) sec INR (<1.2) BUN 38 H (9-20) mg/dL Creatinine (0.66-1.25) mg/dL Glucose 117 H (74-99) mg/dL Magnesium 2.6 H (1.6-2.3) mg/dL AST (17-59) U/L ALT (4-49) U/L Troponin I (0.000-0.034) ng/mL Thrombosis Risk Factor Assmnt - Choose All That Apply Each Factor Represents 1 point: Heart failure (<1month), Swollen legs (current) Other Risk Factors: Yes Each Risk Factor Represents 2 Points: Age 61-74 years Other congenital or acquired thrombophilia - If yes, enter type in comment: No Thrombosis Risk Factor Assessment Total Risk Factor Score: 4 Thrombosis Risk Factor Assessment Level: Moderate Risk
[2020-09-16] MEDS: SPIRONOLACTONE 25 MG TAB PO SCH (06:29)
[2020-09-16] MEDS: PANTOPRAZOLE 40 MG TABLET PO SCH ×2 (06:29→16:52)
[2020-09-16] MEDS: APIXABAN 5 MG TAB PO SCH ×2 (06:29→18:28)
[2020-09-16] MEDS: carvediloL 6.25 MG TAB PO SCH ×2 (06:29→18:29)
[2020-09-16] MEDS: FUROSEMIDE 10 MG/ML 10 ML VIAL IVP SCH ×3 (06:29→19:39)
[2020-09-16] MEDS: SACUBITRIL/VALSARTAN 24 MG-26 MG TABLET PO SCH ×2 (06:38→18:28)
[2020-09-16 08:30] LABS: Calcium 9.7 mg/dL (8.4-10.2); Potassium 4.6 mmol/L (3.5-5.1)
[2020-09-16] MEDS: ASPIRIN 81 MG PO SCH (10:54)
[2020-09-16] MEDS: NYSTATIN 100,000 UNIT/GM POWD 15 GM TOPICAL SCH ×2 (13:05→19:40)
--- NOTE | 2020-09-16 13:26 | P.CONS ---
History of Present Illness - Reason for Consult Consult date: 09/15/20 Nausea Requesting physician: Jessica Infante - Chief Complaint Shortness of breath, edema - History of Present Illness 75-year-old male with multiple medical comorbidities including ischemic cardiomyopathy with depressed EF, atrial fibrillation, KATHRINE, BPH, hyperlipidemia, hypothyroidism, coronary artery disease with prior CABG who presented to the hospital with increasing shortness of breath and lower extremity edema. Patient had reported worsening symptoms occurring over the past month with shortness of breath on exertion and with lying down as well as worsening edema. Currently the patient is being treated for fluid overload in the setting of exacerbation of CHF. Patient reported nausea stating that over the past few months he has had increasing nausea with no episodes of vomiting. He does report increased gas and was started on omeprazole outpatient setting. He denies any change in bowel habits reporting daily bowel movements with the use of stool softener. He reports eating a large amount of fast food as this seems to help with his nausea. Previous colonoscopy or distract in June 2020 with the patient reporting polypectomy at that time. Laboratory evaluation on presentation significant for WBC 7.5, hemoglobin 16.1, platelet count 109,000 with total bilirubin 0.8, pleasant phosphatase 104, AST 64 and ALT 88. He does report a history of fatty liver disease in the past. Review of Systems REVIEW OF SYSTEMS: CONSTITUTIONAL: Denies any fevers, chills, weight change or fatigue. CARDIOVASCULAR: Denies any chest pain, palpitations but does report shortness of breath and orthopnea. RESPIRATORY: Denies any hemoptysis or cough but does report shortness of breath worsened with exertion. GENITOURINARY: No dysuria or hematuria. MUSCULOSKELETAL: No weakness reported. SKIN: Denies any new rashes or lesions, jaundice or pallor. PSYCHIATRIC: Denies any depression or anxiety at this time but does report feeling anxious. NEUROLOGY: Denies headache, denies any new focal deficits. EARS/NOSE/THROAT: No recent hearing change, congestion, nasal discharge or sore throat. EYES: No pain in eyes, discharge or change in vision. GASTROINTESTINAL: As per HPI. Past Medical History Past Medical History: Atrial Fibrillation, Heart Failure, Hyperlipidemia, Osteoarthritis (OA), Prostate Disorder, Sleep Apnea/CPAP/BIPAP, Thyroid Disorder Additional Past Medical History / Comment(s): uses oxygen @2l PRN, KATHRINE not using C PAP at home currently, occ lower leg edema, History of Any Multi-Drug Resistant Organisms: None Reported Past Surgical History: Adenoidectomy, Coronary Bypass/CABG, Heart Catheterization, Tonsillectomy Additional Past Surgical History / Comment(s): parathyroidectomy, cataract surg., cardiac cath. 10-16-15 Past Anesthesia/Blood Transfusion Reactions: No Reported Reaction Type of Cardiac Device: Permanent Pacemaker, AICD Device Placement Date:: 05/2018 Past Psychological History: No Psychological Hx Reported Additional Psychological History / Comment(s): Pt lives at home with granddaughter. He uses walker at home Smoking Status: Never smoker Past Alcohol Use History: None Reported Past Drug Use History: None Reported - Past Family History Father Family Medical History: Cancer Additional Family Medical History / Comment(s): Father had prostate cancer with mets to the bone. He at age 76 yrs. Medications and Allergies Home Medications Medication Instructions Recorded Confirmed Type Multivitamin [Men's Multi-Vitamin] 1 tab PO HS@192907/18/15 09/14/20 History Simvastatin [Zocor] 20 mg PO HS@192907/18/15 09/14/20 History Spironolactone [Aldactone] 25 mg PO DAILY@0730 07/18/15 09/14/20 History Ascorbic Acid [Vitamin C] 500 mg PO BID@729,192904/27/18 09/14/20 History Furosemide [Lasix] 40 mg PO HS@192904/27/18 09/14/20 History Sacubitril/Valsartan [Entresto 24 1 tab PO BID@729,192904/27/18 09/14/20 History mg-26 mg Tablet] Apixaban [Eliquis] 5 mg PO BID@30,192907/06/18 09/14/20 History Benzonatate [Tessalon Perles] 100 mg PO TID PRN 07/06/18 09/14/20 History Nystatin Powder 1 applicate TOPICAL BID 07/06/18 09/14/20 History carvediloL [Coreg*] 6.25 mg PO BID@30,192907/06/18 09/14/20 History Albuterol Nebulized [Ventolin 2.5 mg INHALATION RT-QID PRN 09/14/20 09/14/20 History Nebulized] Albuterol Sulfate [Ventolin HFA] 1 - 2 puff INHALATION RT-Q4H PRN 09/14/20 09/14/20 History Aspirin EC [Ecotrin Low Dose] 81 mg PO BID@729,192909/14/20 09/14/20 History Docusate [Colace] 100 mg PO HS@192909/14/20 09/14/20 History Furosemide [Lasix] 60 mg PO DAILY@72909/14/20 09/14/20 History Mag Hydrox/Al Hydrox/Simeth 30 ml PO Q6H PRN 09/14/20 09/14/20 History [Maalox] Melatonin 20 mg PO HS 09/14/20 09/14/20 History Nystatin [Nystop] 1 applic TOPICAL BID 09/14/20 09/14/20 History Omeprazole 20 mg PO DAILY@72909/14/20 09/14/20 History Sildenafil [Revatio] 60 - 100 mg PO DAILY PRN 09/14/20 09/14/20 History Allergies Allergy/AdvReac Type Severity Reaction Status Date / Time No Known Allergies Allergy Verified 09/14/20 22:25 Physical Exam Vitals: Vital Signs Temp Pulse Pulse Resp BP BP Pulse Ox 09/15/20 11:33 97.5 F L 69 20 95/60 97 09/15/20 09:05 113/68 09/15/20 08:07 97.4 F L 66 22 102/65 97 09/15/20 08:00 66 22 09/15/20 04:00 98.5 F 70 20 108/66 97 09/15/20 02:00 70 18 09/15/20 00:23 97.8 F 71 18 103/73 98 09/15/20 00:15 98.4 F 70 20 128/86 98 09/14/20 23:45 75 16 104/74 95 09/14/20 23:03 99/67 09/14/20 23:00 67 18 95/75 97 09/14/20 22:00 70 18 130/107 97 09/14/20 21:43 20 09/14/20 21:33 97.2 F L 67 20 116/97 Intake and Output 09/14/20 09/15/20 09/15/20 22:59 06:59 14:59 Intake Total 480 590 Output Total 300 Balance 180 590 Intake: Oral 480 590 Output: Urine 300 Other: Voiding Method Urinal Urinal # Voids 1 Weight 149.685 kg 154.4 kg On physical examination, patient appears comfortable in no apparent distress. HEAD: Normocephalic, atraumatic. EYES: No scleral icterus. No conjunctival injection. MOUTH: No lesions, tongue midline. NECK: Trachea midline, no gross abnormalities. CHEST: Decreased air entry in all lung banks. HEART: S1-S2 appreciated. ABDOMEN: Soft, obese, nontender to palpation. Bowel sounds are positive. No organomegaly. No guarding or rigidity. EXTREMITIES: 2+ pedal edema. SKIN: No rashes, no jaundice. NEUROLOGIC: Alert and oriented x3. No focal deficits. Results CBC & Chem 7: 09/14/20 21:58 09/16/20 07:21 Labs: Abnormal Lab Results - Last 24 Hours (Table) 09/14/20 09/14/20 09/14/20 Range/Units 21:58 21:58 21:58 Plt Count 129 L (150-450) k/uL Lymphocytes # 0.8 L (1.0-4.8) k/uL PT 12.4 H (9.0-12.0) sec INR 1.2 H (<1.2) BUN 38 H (9-20) mg/dL Creatinine 1.26 H (0.66-1.25) mg/dL Glucose 150 H (74-99) mg/dL Magnesium (1.6-2.3) mg/dL AST 64 H (17-59) U/L ALT 88 H (4-49) U/L Troponin I (0.000-0.034) ng/mL 09/14/20 09/15/20 09/15/20 Range/Units 21:58 01:18 03:21 Plt Count (150-450) k/uL Lymphocytes # (1.0-4.8) k/uL PT (9.0-12.0) sec INR (<1.2) BUN (9-20) mg/dL Creatinine (0.66-1.25) mg/dL Glucose (74-99) mg/dL Magnesium (1.6-2.3) mg/dL AST (17-59) U/L ALT (4-49) U/L Troponin I 0.063 H* 0.078 H* 0.068 H* (0.000-0.034) ng/mL 09/15/20 Range/Units 03:21 Plt Count (150-450) k/uL Lymphocytes # (1.0-4.8) k/uL PT (9.0-12.0) sec INR (<1.2) BUN 38 H (9-20) mg/dL Creatinine (0.66-1.25) mg/dL Glucose 117 H (74-99) mg/dL Magnesium 2.6 H (1.6-2.3) mg/dL AST (17-59) U/L ALT (4-49) U/L Troponin I (0.000-0.034) ng/mL US - abdomen: report reviewed (Ultrasound of the abdomen negative for any judy docholithiasis or CBD dilation with some gallbladder wall thickening noted) Assessment and Plan (1) Nausea Narrative/Plan: 75-year-old male with multiple medical comorbidities including ischemic cardiomyopathy with depressed ejection fraction presenting for shortness of breath and fluid overload currently receiving therapy with diuretics medications for an exacerbation of CHF. Patient reports persistent nausea over the past few months. No episodes of vomiting with the nausea. He does report gas. Ultrasound performed on evaluation negative for any cholelithiasis, choledocholithiasis or CBD dilation but did developed a slightly thickened gallbladder wall. Patient had been given some omeprazole over the past month as an outpatient but did not feel it helped. Unclear etiology, may be related to medications, uncontrolled reflux, gastritis or other etiology. Current Visit: Yes Status: Acute Code(s): R11.0 - NAUSEA SNOMED Code(s): 040786609 Plan: Supportive care Okay for diet as tolerated Protonix 40 mg twice a day added Patient encouraged to use Zofran as needed for breakthrough nausea Other GERD lifestyle modifications including diet discussed with the patient length Ultrasound of the abdomen reviewed Thank you for allowing us to participate in the care of the patient we will continue to follow
--- NOTE | 2020-09-16 14:53 | P.PN ---
Subjective Progress Note Date: 09/16/20 CHIEF COMPLAINT: congestive heart failure HISTORY OF PRESENT ILLNESS: 09/15/2020 This is a 75-year-old male with a past medical history significant for ischemic cardiomyopathy with previous AICD, coronary artery disease with previous CABG, paroxysmal atrial fibrillation, congestive heart failure, hypertension, and hyperlipidemia. Patient follows in the office with Dr. Ortega. We have been asked to see the patient in consultation for CHF. Patient examined this morning at the bedside. He reports feeling short of breath over the last month with increased swelling to his lower extremities. He states he has been having some nausea recently and the only thing he has been able to eat without getting nauseous is fast food. He reports increasing his lasix dosage last week without improvement in his shortness of breath. He denies chest pain or pressure. Denies cough or congestion. Denies dizziness or lightheadedness. EKG reveals paced rhythm with right bundle branch block and left axis deviation Chest xray moderate cardiomegaly and probable mild heart failure. Echocardiogram completed 09/08/2020 revealed ejection fraction 20-25% Patient underwent Linda scan in 2018 which was negative for ischemia 09/16/2020 Patient examined this morning at the bedside. Patient states his shortness of breath is improving. His lower extremity edema is also improving. He denies chest pain or pressure. He remains on IV Lasix 60 mg every 8 hours. Fluid ba jack over the last 24 hours is -1385 mL. Vital signs are stable. PHYSICAL EXAM: VITAL SIGNS: Reviewed. GENERAL: Well-developed in no acute distress. HEENT: Head is normocephalic. Pupils are equal, round. Sclerae anicteric. Mucous membranes of the mouth are moist. Neck supple. No JVD or thyromegaly LUNGS: Respirations even and unlabored. Lungs diminished bilaterally. HEART: Regular rate and rhythm. S1 and S2 heard. Systolic murmur noted ABDOMEN: Soft. Nondistended. Nontender. EXTREMITIES: Normal range of motion. No clubbing or cyanosis. Peripheral pulses intact. 2-3+ bilateral lower extremity edema NEUROLOGIC: Awake and alert. Oriented x 3. ASSESSMENT: Acute exacerbation of chronic systolic heart failure, EF 20-25% Nausea, patient reports only being able to tolerate fast food recently Coronary artery disease with previous CABG Paroxysmal atrial fibrillation on long-term anticoagulation with Eliquis Ischemic cardiomyopathy with previous AICD, EF 20-25% Abnormal troponins, secondary to acute exacerbation of heart failure Hypertension Hyperlipidemia Morbid obesity: BMI 47.5 PLAN: Continue IV Lasix Monitor kidney function Daily weights Accurate I&O Further recommendations pending patient course Nurse practitioner note has been reviewed by physician. Signing provider agrees with the documented findings, assessment, and plan of care. Objective - Vital Signs Vital signs: Vital Signs Temp 97.9 F 09/16/20 11:30 Pulse 83 09/16/20 11:30 Resp 22 09/16/20 13:01 BP 107/71 09/16/20 11:30 Pulse Ox 96 09/16/20 11:30 Intake & Output 09/15/20 09/16/20 09/16/20 18:59 06:59 18:59 Intake Total 6314 351 8382 Output Total 3475 1750 Balance 1310 -2695 -40 Weight 154.4 kg 152.4 kg Intake: Oral 2884 996 2983 Output: Urine 3475 1750 Other: Voiding Method Urinal Urinal Urinal # Voids 2 1 - Labs CBC & Chem 7: 09/14/20 21:58 09/16/20 07:21 Labs: Abnormal Lab Results - Last 24 Hours (Table) 09/16/20 Range/Units 07:21 Sodium 136 L (137-145) mmol/L BUN 40 H (9-20) mg/dL Glucose 114 H (74-99) mg/dL
[2020-09-16] MEDS: ONDANSETRON 4 MG/2 ML VIAL IVP PRN (17:43)
[2020-09-16] MEDS: ATORVASTATIN 10 MG TAB PO SCH (18:28)
--- NOTE | 2020-09-16 19:17 | P.PN ---
Progress Note - Text Progress Note Date: 09/16/20 Chief Complaint: Short of breath History of presenting complaint: This is a 75-year-old patient of Dr. Romero Jacobs. Follows with industrial paramedic Dr. Clements. Chronic stable medical conditions include atrial fibrillation, osteoarthritis, hyperlipidemia, prostate disorder, obstructive sleep apnea does not use CPAP, hypothyroid coronary artery disease with bypass. Does have a walker at home. Patient been progressively worsening short of breath for 3-4 weeks. Slight cough. Significant edema. Appetite is okay. No fever no chills. Admitted with CHF exacerbation. Started on IV Lasix push. Intertriginous candidiasis infection. Antifungals topical added. Today-breathing slightly better. Edema present. Oral intake fair. Tired. Sitting of age of the bed. Review of systems: Was done for constitutional, cardiovascular, GI, pulmonary. relevant finding as above Active Medications Albuterol Sulfate (Albuterol Nebulized 2.5 Mg/3 Ml) 2.5 mg INHALATION RT-QID PRN PRN Reason: Shortness Of Breath Apixaban (Apixaban 5 Mg Tab) 5 mg PO BID@ [facility] Last Admin: 09/16/20 18:28 Dose: 5 mg Documented by: Aspirin (Aspirin 81 Mg) 81 mg PO DAILY [facility] Last Admin: 09/16/20 10:54 Dose: 81 mg Documented by: Atorvastatin Calcium (Atorvastatin 10 Mg Tab) 10 mg PO HS@1929 [facility] Last Admin: 09/16/20 18:28 Dose: 10 mg Documented by: Benzonatate (Benzonatate 100 Mg Cap) 100 mg PO TID PRN PRN Reason: Cough Last Admin: 09/16/20 02:38 Dose: 100 mg Documented by: Carvedilol (Carvedilol 6.25 Mg Tab) 6.25 mg PO BID@ [facility] Last Admin: 09/16/20 18:29 Dose: 6.25 mg Documented by: Furosemide (Furosemide 10 Mg/Ml 10 Ml Vial) 60 mg IVP Q8H [facility] Last Admin: 09/16/20 13:04 Dose: 60 mg Documented by: Nystatin (Nystatin 100,000 Unit/Gm Powd 15 Gm) 1 applic TOPICAL BID [facility] Last Admin: 09/16/20 13:05 Dose: 1 applic Documented by: Ondansetron HCl (Ondansetron 4 Mg/2 Ml Vial) 4 mg IVP Q6HR PRN PRN Reason: Nausea And Vomiting Last Admin: 09/16/20 17:43 Dose: 4 mg Documented by: Pantoprazole Sodium (Pantoprazole 40 Mg Tablet) 40 mg PO AC-BID [facility] Last Admin: 09/16/20 16:52 Dose: 40 mg Documented by: Sacubitril/Valsartan (Sacubitril/Valsartan 24 Mg-26 Mg Tablet) 1 each PO BID@729,1929 [facility] Last Admin: 09/16/20 18:28 Dose: 1 each Documented by: Sodium Chloride (Sodium Chloride 0.9% Flush 10 Ml Syringe) 10 ml IV BID [facility] Last Admin: 09/16/20 10:54 Dose: 10 ml Documented by: Spironolactone (Spironolactone 25 Mg Tab) 25 mg PO DAILY@729 [facility] Last Admin: 09/16/20 06:29 Dose: 25 mg Documented by: Past medical history to include: Atrial fibrillation, CHF, hyperlipidemia, osteoarthritis, prostate disorder, obstructive sleep apnea does not use CPAP, home oxygen 2 L when necessary, coronary artery disease with bypass, thyroidectomy, permanent pacemaker with AICD Social history: Lives with his granddaughter. Does use a walker. Patient quit daily using a pipe 40 years ago. No alcohol. Physical examination: VITAL SIGNS: Recent 0.9, 83, 22, 107/71, 96% room air GENERAL: Sitting of the edges of bed, short of breath EYES: Pupils equal. Conjunctiva normal. HEENT: External appearance of nose and ears normal, oral cavity grossly normal. NECK: JVD unable to assess; masses not palpable. HEART: First and second heart sounds are normal; significant edema. LUNGS: Respiratory rate increased; decreased breath sounds ABDOMEN: Soft, nontender, liver spleen not palpable, no masses palpable. DERMATOLOGICAL: Redness and regular skin both the groin falls and below the breast fold PSYCH: Alert and oriented x3; mood and affect normal. MUSCULAR skeletal: Evidence of OA INVESTIGATIONS, reviewed in the clinical context: September 16: Potassium 4.6 creatinine 1.13 White count 7.5 hemoglobin 16.1 platelets 129 potassium 4.5 bun 38 creatinine 1.26 Troponin I 0.063, 0.078, 0.068 ProBNP 5110 Coronavirus PCR-not detected EKG tracing personally reviewed by me-[id number] showed paced rhythm Chest x-ray film personally reviewed by me-cardiomegaly, pulmonary edema. Portable film 2-D echocardiogram from 09/08/2020 shows EF 20-25% Assessment and plan: -Acute on chronic congestive heart failure exacerbation, systolic dysfunction EF 20-25%. Patient started on IV Lasix. Continue Coreg, Aldactone, Entresto-slow to respond -Persistent atrial fibrillation, on eliquis -Intertriginous ezra infection of bilateral groin and below the breast area. Use topical nystatin powder. Patient advised not to use tight underwear instead uses cotton boxers -AICD -Hyperlipidemia-on Zocor -Chronic insomnia, multifactorial continued use melatonin -Primary osteoarthritis, use Tylenol when necessary -BPH -Obstructive sleep apnea patient does not use CPAP -Morbid obesity BMI 47.5. Follow-up with dietitian's outpatient and follow with PCP -Coronary artery disease with a history of coronary bypass -GERD continue omeprazole Follow BMP, remain on IV Lasix. Put on fluid restriction 1500 mL daily. Lisandro wrap lower extremity. Discussed with the patient.
[2020-09-17] MEDS: FUROSEMIDE 10 MG/ML 10 ML VIAL IVP SCH ×3 (06:33→22:30)
[2020-09-17] MEDS: PANTOPRAZOLE 40 MG TABLET PO SCH ×2 (06:34→17:22)
[2020-09-17] MEDS: APIXABAN 5 MG TAB PO SCH ×2 (06:34→17:25)
[2020-09-17] MEDS: carvediloL 6.25 MG TAB PO SCH ×2 (06:34→19:08)
[2020-09-17] MEDS: SACUBITRIL/VALSARTAN 24 MG-26 MG TABLET PO SCH ×2 (06:34→19:08)
[2020-09-17] MEDS: SPIRONOLACTONE 25 MG TAB PO SCH (06:34)
[2020-09-17] MEDS: ASPIRIN 81 MG PO SCH (08:54)
[2020-09-17] MEDS: NYSTATIN 100,000 UNIT/GM POWD 15 GM TOPICAL SCH (08:54)
[2020-09-17 10:45] LABS: Calcium 9.3 mg/dL (8.4-10.2); Potassium 3.9 mmol/L (3.5-5.1)
--- NOTE | 2020-09-17 10:59 | P.PN ---
Subjective Progress Note Date: 09/16/20 Principal diagnosis: Nausea The patient is seen lying in bed today. He is reporting that her nausea is improved. Tolerating diet. No episodes of vomiting. No abdominal pain. Objective - Vital Signs Vital signs: Vital Signs Temp 97.9 F 09/16/20 11:30 Pulse 83 09/16/20 11:30 Resp 22 09/16/20 13:01 BP 107/71 09/16/20 11:30 Pulse Ox 96 09/16/20 11:30 Intake & Output 09/15/20 09/16/20 09/16/20 18:59 06:59 18:59 Intake Total 5722 240 3969 Output Total 3475 1750 Balance 1310 -9545 -40 Weight 154.4 kg 152.4 kg Intake: Oral 2682 645 1068 Output: Urine 3475 1750 Other: Voiding Method Urinal Urinal Urinal # Voids 2 1 - Exam On physical examination, patient appears comfortable in no apparent distress. HEAD: Normocephalic, atraumatic. EYES: No scleral icterus. No conjunctival injection. MOUTH: No lesions, tongue midline. NECK: Trachea midline, no gross abnormalities. ABDOMEN: Soft, obese and nontender. Bowel sounds are positive. No organomegaly. No guarding or rigidity. EXTREMITIES: Bilateral pedal edema. SKIN: No rashes, no jaundice. NEUROLOGIC: Alert and oriented x3. No focal deficits. - Labs CBC & Chem 7: 09/14/20 21:58 09/17/20 09:18 Labs: Abnormal Lab Results - Last 24 Hours (Table) 09/16/20 Range/Units 07:21 Sodium 136 L (137-145) mmol/L BUN 40 H (9-20) mg/dL Glucose 114 H (74-99) mg/dL Assessment and Plan (1) Nausea Narrative/Plan: 75-year-old male with multiple medical comorbidities including ischemic cardiomyopathy with depressed ejection fraction presenting for shortness of breath and fluid overload currently receiving therapy with diuretics medications for an exacerbation of CHF. Patient reports persistent nausea over the past few months. No episodes of vomiting with the nausea. He does report gas. Ultrasou nd performed on evaluation negative for any cholelithiasis, choledocholithiasis or CBD dilation but did developed a slightly thickened gallbladder wall. Patient had been given some omeprazole over the past month as an outpatient but did not feel it helped. Unclear etiology, may be related to medications, uncontrolled reflux, gastritis or other etiology. Symptoms improved on twice daily PPI therapy with Zofran as needed for breakthrough nausea. Current Visit: Yes Status: Acute Code(s): R11.0 - NAUSEA SNOMED Code(s): 007224233 Plan: Supportive care Okay for diet as tolerated Protonix 40 mg twice a day added Patient encouraged to use Zofran as needed for breakthrough nausea Other GERD lifestyle modifications including diet discussed with the patient [facility] Ultrasound of the abdomen reviewed The GI service will stand by, please call with any questions or concerns Thank you for allowing us to participate in the care of the patient
--- NOTE | 2020-09-17 14:46 | P.PN ---
Subjective Progress Note Date: 09/17/20 CHIEF COMPLAINT: congestive heart failure HISTORY OF PRESENT ILLNESS: 09/15/2020 This is a 75-year-old male with a past medical history significant for ischemic cardiomyopathy with previous AICD, coronary artery disease with previous CABG, paroxysmal atrial fibrillation, congestive heart failure, hypertension, and hyperlipidemia. Patient follows in the office with Dr. Ortega. We have been asked to see the patient in consultation for CHF. Patient examined this morning at the bedside. He reports feeling short of breath over the last month with increased swelling to his lower extremities. He states he has been having some nausea recently and the only thing he has been able to eat without getting nauseous is fast food. He reports increasing his lasix dosage last week without improvement in his shortness of breath. He denies chest pain or pressure. Denies cough or congestion. Denies dizziness or lightheadedness. EKG reveals paced rhythm with right bundle branch block and left axis deviation Chest xray moderate cardiomegaly and probable mild heart failure. Echocardiogram completed 09/08/2020 revealed ejection fraction 20-25% Patient underwent Linda scan in 2018 which was negative for ischemia 09/16/2020 Patient examined this morning at the bedside. Patient states his shortness of breath is improving. His lower extremity edema is also improving. He denies chest pain or pressure. He remains on IV Lasix 60 mg every 8 hours. Fluid ba jack over the last 24 hours is -1385 mL. Vital signs are stable. 09/17/2020 Patient examined this morning to bedside. Patient denies chest pain or pressure. He states his shortness of breath is improving. He continues to have lower extremity edema which is improving. His legs are currently wrapped with Lisandro bandages. Fluid balance over the last 24 hours is -1343 mL. Creatinine today 1.19. PHYSICAL EXAM: VITAL SIGNS: Reviewed. GENERAL: Well-developed in no acute distress. HEENT: Head is normocephalic. Pupils are equal, round. Sclerae anicteric. Mucous membranes of the mouth are moist. Neck supple. No JVD or thyromegaly LUNGS: Respirations even and unlabored. Lungs diminished bilaterally. HEART: Regular rate and rhythm. S1 and S2 heard. Systolic murmur noted ABDOMEN: Soft. Nondistended. Nontender. EXTREMITIES: Normal range of motion. No clubbing or cyanosis. Peripheral pulses intact. 2+ bilateral lower extremity edema NEUROLOGIC: Awake and alert. Oriented x 3. ASSESSMENT: Acute exacerbation of chronic systolic heart failure, EF 20-25% Nausea, patient reports only being able to tolerate fast food recently Coronary artery disease with previous CABG Paroxysmal atrial fibrillation on long-term anticoagulation with Eliquis Ischemic cardiomyopathy with previous AICD, EF 20-25% Abnormal troponins, secondary to acute exacerbation of heart failure Hypertension Hyperlipidemia Morbid obesity: BMI 47.5 PLAN: Continue IV Lasix for today. Will transition to oral Lasix tomorrow 60 mg twice a day Reinforced low-sodium diet with patient Monitor kidney function Daily weights Accurate I&O Anticipate patient should be stable for discharge home tomorrow Nurse practitioner note has been reviewed by physician. Signing provider agrees with the documented findings, assessment, and plan of care. Objective - Vital Signs Vital signs: Vital Signs Temp 97.2 F L 09/17/20 08:50 Pulse 74 09/17/20 08:50 Resp 18 09/17/20 08:50 BP 95/56 09/17/20 08:50 Pulse Ox 92 L 09/17/20 08:50 Intake & Output 09/16/20 09/17/20 09/17/20 18:59 06:59 18:59 Intake Total 2210 822 1030 Output Total 2350 2024 1225 Balance -140 -1203 -195 Weight 149.8 kg Intake: Oral 2210 822 1030 Output: Urine 2350 2024 1225 Other: Voiding Method Urinal Urinal Urinal # Voids 1 1 - Labs CBC & Chem 7: 09/14/20 21:58 09/17/20 09:18 Labs: Abnormal Lab Results - Last 24 Hours (Table) 09/17/20 Range/Units 09:18 Carbon Dioxide 35 H (22-30) mmol/L BUN 39 H (9-20) mg/dL
[2020-09-17] MEDS: ATORVASTATIN 10 MG TAB PO SCH (17:25)
--- NOTE | 2020-09-17 22:20 | P.PN ---
Progress Note - Text Progress Note Date: 09/17/20 Chief Complaint: Short of breath History of presenting complaint: This is a 75-year-old patient of Dr. Romero Jacobs. Follows with willow machine tender Dr. Clements. Chronic stable medical conditions include atrial fibrillation, osteoarthritis, hyperlipidemia, prostate disorder, obstructive sleep apnea does not use CPAP, hypothyroid coronary artery disease with bypass. Does have a walker at home. Patient been progressively worsening short of breath for 3-4 weeks. Slight cough. Significant edema. Appetite is okay. No fever no chills. Admitted with CHF exacerbation. Started on IV Lasix push. Intertriginous candidiasis infection. Antifungals topical added. Diet using well. Today-breathing continues to improve. On IV Lasix. Feeling better. Oral intake good. About 2600 mL in negative fluid balance Review of systems: Was done for constitutional, cardiovascular, GI, pulmonary. relevant finding as above Active Medications Albuterol Sulfate (Albuterol Nebulized 2.5 Mg/3 Ml) 2.5 mg INHALATION RT-QID PRN PRN Reason: Shortness Of Breath Apixaban (Apixaban 5 Mg Tab) 5 mg PO BID@ [facility] Last Admin: 09/17/20 17:25 Dose: 5 mg Documented by: Aspirin (Aspirin 81 Mg) 81 mg PO DAILY [facility] Last Admin: 09/17/20 08:54 Dose: 81 mg Documented by: Atorvastatin Calcium (Atorvastatin 10 Mg Tab) 10 mg PO HS@1929 [facility] Last Admin: 09/17/20 17:25 Dose: 10 mg Documented by: Benzonatate (Benzonatate 100 Mg Cap) 100 mg PO TID PRN PRN Reason: Cough Last Admin: 09/16/20 02:38 Dose: 100 mg Documented by: Carvedilol (Carvedilol 6.25 Mg Tab) 6.25 mg PO BID@30 [facility] Last Admin: 09/17/20 19:08 Dose: 6.25 mg Documented by: Furosemide (Furosemide 20 Mg Tab) 60 mg PO BID@0900,1600 [facility] Furosemide (Furosemide 10 Mg/Ml 10 Ml Vial) 60 mg IVP Q8H [facility] Stop: 09/17/20 23:59 Last Admin: 09/17/20 13:06 Dose: 60 mg Documented by: Nystatin (Nystatin 100,000 Unit/Gm Powd 15 Gm) 1 applic TOPICAL BID [facility] Last Admin: 09/17/20 08:54 Dose: 1 applic Documented by: Ondansetron HCl (Ondansetron 4 Mg/2 Ml Vial) 4 mg IVP Q6HR PRN PRN Reason: Nausea And Vomiting Last Admin: 09/16/20 17:43 Dose: 4 mg Documented by: Pantoprazole Sodium (Pantoprazole 40 Mg Tablet) 40 mg PO AC-BID [facility] Last Admin: 09/17/20 17:22 Dose: 40 mg Documented by: Sacubitril/Valsartan (Sacubitril/Valsartan 24 Mg-26 Mg Tablet) 1 each PO BID@0730,1930 [facility] Last Admin: 09/17/20 19:08 Dose: 1 each Documented by: Sodium Chloride (Sodium Chloride 0.9% Flush 10 Ml Syringe) 10 ml IV BID [facility] Last Admin: 09/17/20 08:54 Dose: 10 ml Documented by: Spironolactone (Spironolactone 25 Mg Tab) 25 mg PO DAILY@07 [facility] Last Admin: 09/17/20 06:34 Dose: 25 mg Documented by: Past medical history to include: Atrial fibrillation, CHF, hyperlipidemia, osteoarthritis, prostate disorder, obstructive sleep apnea does not use CPAP, home oxygen 2 L when necessary, coronary artery disease with bypass, thyroidectomy, permanent pacemaker with AICD Social history: Lives with his granddaughter. Does use a walker. Patient quit daily using a pipe 40 years ago. No alcohol. Physical examination: VITAL SIGNS: 96.5, 81, 18, 1 28 x 89, 99% on 2 L, 95% on room air GENERAL: Sitting up, breathing better EYES: Pupils equal. Conjunctiva normal. HEENT: External appearance of nose and ears normal, oral cavity grossly normal. NECK: JVD unable to assess; masses not palpable. HEART: First and second heart sounds are normal; significant edema. LUNGS: Respiratory rate increased; fair air entry ABDOMEN: Soft, nontender, liver spleen not palpable, no masses palpable. DERMATOLOGICAL: Redness and regular skin both the groin falls and below the breast fold PSYCH: Alert and oriented x3; mood and affect normal. MUSCULAR skeletal: Evidence of OA INVESTIGATIONS, reviewed in the clinical context: September 17: Potassium 3.9 creatinine 1.19 September 16: Potassium 4.6 creatinine 1.13 White count 7.5 hemoglobin 16.1 platelets 129 potassium 4.5 bun 38 creatinine 1.26 Troponin I 0.063, 0.078, 0.068 ProBNP 5110 Coronavirus PCR-not detected EKG tracing personally reviewed by me-8 showed paced rhythm Chest x-ray film personally reviewed by me-cardiomegaly, pulmonary edema. Portable film 2-D echocardiogram from 09/08/2020 shows EF 20-25% Assessment and plan: -Acute on chronic congestive heart failure exacerbation, systolic dysfunction EF 20-25%. IV Lasix. Continue Coreg, Aldactone, improving. Fluid restriction. -Persistent atrial fibrillation, on eliquis -Intertriginous ezra infection of bilateral groin and below the breast area. Use topical nystatin powder. Patient advised not to use tight underwear instead uses cotton boxers -AICD -Hyperlipidemia-on Zocor -Chronic insomnia, multifactorial continued use melatonin -Primary osteoarthritis, use Tylenol when necessary -BPH -Obstructive sleep apnea patient does not use CPAP -Morbid obesity BMI 47.5. Follow-up with dietitian's outpatient and follow with PCP -Coronary artery disease with a history of coronary bypass -GERD continue omeprazole Continue IV Lasix today. Switch to by mouth Lasix tomorrow. Hopefully discharge home tomorrow. Check labs. Discussed with the patient.
[2020-09-18] MEDS: NYSTATIN 100,000 UNIT/GM POWD 15 GM TOPICAL SCH ×2 (06:08→09:05)
[2020-09-18] MEDS: SACUBITRIL/VALSARTAN 24 MG-26 MG TABLET PO SCH (06:17)
[2020-09-18] MEDS: APIXABAN 5 MG TAB PO SCH (06:18)
[2020-09-18] MEDS: PANTOPRAZOLE 40 MG TABLET PO SCH (06:18)
[2020-09-18] MEDS: carvediloL 6.25 MG TAB PO SCH (06:18)
[2020-09-18] MEDS ORDERED: FUROSEMIDE 20 MG TAB PO SCH (09:00)
[2020-09-18] MEDS: ASPIRIN 81 MG PO SCH (09:03)
[2020-09-18] MEDS: SPIRONOLACTONE 25 MG TAB PO SCH (09:04)
[2020-09-18 10:24] LABS: Calcium 9.4 mg/dL (8.4-10.2); Potassium 3.9 mmol/L (3.5-5.1)
[2020-09-18 11:25] VITALS: PULSE 72; TEMP 97.3
[2020-09-18] MEDS ORDERED: LACTULOSE 20 GM/30 ML CUP PO ONE (11:38)
--- NOTE | 2020-09-18 11:39 | P.PN ---
Subjective Progress Note Date: 09/18/20 CHIEF COMPLAINT: congestive heart failure HISTORY OF PRESENT ILLNESS: 09/15/2020 This is a 75-year-old male with a past medical history significant for ischemic cardiomyopathy with previous AICD, coronary artery disease with previous CABG, paroxysmal atrial fibrillation, congestive heart failure, hypertension, and hyperlipidemia. Patient follows in the office with Dr. Ortega. We have been asked to see the patient in consultation for CHF. Patient examined this morning at the bedside. He reports feeling short of breath over the last month with increased swelling to his lower extremities. He states he has been having some nausea recently and the only thing he has been able to eat without getting nauseous is fast food. He reports increasing his lasix dosage last week without improvement in his shortness of breath. He denies chest pain or pressure. Denies cough or congestion. Denies dizziness or lightheadedness. EKG reveals paced rhythm with right bundle branch block and left axis deviation Chest xray moderate cardiomegaly and probable mild heart failure. Echocardiogram completed 09/08/2020 revealed ejection fraction 20-25% Patient underwent Linda scan in 2018 which was negative for ischemia 09/16/2020 Patient examined this morning at the bedside. Patient states his shortness of breath is improving. His lower extremity edema is also improving. He denies chest pain or pressure. He remains on IV Lasix 60 mg every 8 hours. Fluid ba jack over the last 24 hours is -1385 mL. Vital signs are stable. 09/17/2020 Patient examined this morning to bedside. Patient denies chest pain or pressure. He states his shortness of breath is improving. He continues to have lower extremity edema which is improving. His legs are currently wrapped with Lisandro bandages. Fluid balance over the last 24 hours is -1343 mL. Creatinine today 1.19. 09/18/2020 Patient examined this morning at the bedside. He denies chest pain or pressure. He denies shortness of breath. Lower extremity edema has significantly improved. He has been transitioned to oral Lasix today. Fluid balance over the last 24 hours is -1315 mL. PHYSICAL EXAM: VITAL SIGNS: Reviewed. GENERAL: Well-developed in no acute distress. HEENT: Head is normocephalic. Pupils are equal, round. Sclerae anicteric. Mucous membranes of the mouth are moist. Neck supple. No JVD or thyromegaly LUNGS: Respirations even and unlabored. Lungs clear to auscultation HEART: Regular rate and rhythm. S1 and S2 heard. Systolic murmur noted ABDOMEN: Soft. Nondistended. Nontender. EXTREMITIES: Normal range of motion. No clubbing or cyanosis. Peripheral pulses intact. 1-2+ bilateral lower extremity edema NEUROLOGIC: Awake and alert. Oriented x 3. ASSESSMENT: Acute exacerbation of chronic systolic heart failure, EF 20-25% Nausea, patient reports only being able to tolerate fast food recently Coronary artery disease with previous CABG Paroxysmal atrial fibrillation on long-term anticoagulation with Eliquis Ischemic cardiomyopathy with previous AICD, EF 20-25% Abnormal troponins, secondary to acute exacerbation of heart failure Hypertension Hyperlipidemia Morbid obesity: BMI 47.5 PLAN: Continue oral Lasix Reinforced low-sodium diet with patient Monitor kidney function Daily weights Accurate I&O Patient is stable for discharge home today from a cardiac perspective. He is to follow up outpatient with Dr. Ortega Nurse practitioner note has been reviewed by physician. Signing provider agrees with the documented findings, assessment, and plan of care. Objective - Vital Signs Vital signs: Vital Signs Temp 97.3 F L 09/18/20 08:00 Pulse 72 09/18/20 08:00 Resp 18 09/18/20 08:00 BP 116/57 09/18/20 08:00 Pulse Ox 97 09/18/20 08:00 Intake & Output 09/17/20 09/18/20 09/18/20 18:59 06:59 18:59 Intake Total 1760 Output Total 1675 1400 Balance 85 -1400 Weight 148.6 kg Intake: Oral 1760 Output: Urine 1675 1400 Other: Voiding Method Urinal Urinal Urinal # Voids 1 - Labs CBC & Chem 7: 09/14/20 21:58 09/18/20 08:24 Labs: Abnormal Lab Results - Last 24 Hours (Table) 09/18/20 Range/Units 08:24 Carbon Dioxide 32 H (22-30) mmol/L BUN 35 H (9-20) mg/dL Glucose 124 H (74-99) mg/dL
[2020-09-18] MEDS: ONDANSETRON 4 MG/2 ML VIAL IVP PRN (11:47)
[2020-09-18 13:57] VITALS: BP 94/59; RESP 16
--- NOTE | 2020-09-18 23:37 | P.DS ---
Providers Date of admission: 09/17/20 13:58 Expected date of discharge: 09/18/20 Attending physician: Jacob Cortez Consults: 09/15/20 00:07 Consult Physician Routine Consulting Provider: Afsaneh Ortega Consult Reason/Comments: CHF exacerbation Do you want consulting provider notified?: Yes Primary care physician: Romero Jacobs MD Hospital Course: Chief Complaint: Short of breath History of presenting complaint: This is a 75-year-old patient of Dr. Romero Jacobs. Follows with ocular care aide Dr. Clements. Chronic stable medical conditions include atrial fibrillation, osteoarthritis, hyperlipidemia, prostate disorder, obstructive sleep apnea does not use CPAP, hypothyroid coronary artery disease with bypass. Does have a walker at home. Patient been progressively worsening short of breath for 3-4 weeks. Slight cough. Significant edema. Appetite is okay. No fever no chills. Admitted with CHF exacerbation. Started on IV Lasix push. Intertriginous candidiasis infection. Antifungals topical added. Today-breathing much improved. About 4 L in negative fluid balance. Told the patient to use Lisandro wrap, during daytime. Fluid restriction discussed. Cleared by cardiology. Patient had some nausea that improved. Discussion and discharge planning more than 35 minutes Consultation: Dr. Christina Echeverria from cardiology Dr. Hansno from GI for nausea. Past medical history to include: Atrial fibrillation, CHF, hyperlipidemia, osteoarthritis, prostate disorder, obstructive sleep apnea does not use CPAP, home oxygen 2 L when necessary, coronary artery disease with bypass, thyroidectomy, permanent pacemaker with AICD Social history: Lives with his granddaughter. Does use a walker. Patient quit daily using a pipe 40 years ago. No alcohol. Physical examination: VITAL SIGNS: 97.3, 72, 18, 116/57, 97% room air GENERAL: Sitting up, breathing better EYES: Pupils equal. Conjunctiva normal. HEENT: External appearance of nose and ears normal, oral cavity grossly normal. NECK: JVD unable to assess; masses not palpable. HEART: First and second heart sounds are normal; significant edema. LUNGS: Respiratory rate increased; fair air entry ABDOMEN: Soft, nontender, liver spleen not palpable, no masses palpable. DERMATOLOGICAL: Redness and regular skin both the groin folds and below the breast fold PSYCH: Alert and oriented x3; mood and affect normal. MUSCULAR skeletal: Evidence of OA INVESTIGATIONS, reviewed in the clinical context: Febrile 11th: Potassium 3.9 creatinine 1.03 September 17: Potassium 3.9 creatinine 1.19 September 16: Potassium 4.6 creatinine 1.13 White count 7.5 hemoglobin 16.1 platelets 129 potassium 4.5 bun 38 creatinine 1.26 Troponin I 0.063, 0.078, 0.068 ProBNP 5110 Coronavirus PCR-not detected EKG tracing personally reviewed by me-8 showed paced rhythm Chest x-ray film personally reviewed by me-cardiomegaly, pulmonary edema. Portable film 2-D echocardiogram from 09/08/2020 shows EF 20-25% Gallbladder ultrasound-some gallbladder wall thickening. Assessment and plan: -Acute on chronic congestive heart failure exacerbation, systolic dysfunction EF 20-25%. IV Lasix. Continue Coreg, Aldactone, improving. Fluid restriction. -Persistent atrial fibrillation, on eliquis -Intertriginous ezra infection of bilateral groin and below the breast area. Use topical nystatin powder. Patient advised not to use tight underwear instead uses cotton boxers -AICD -Hyperlipidemia-on Zocor -Chronic insomnia, multifactorial continued use melatonin -Primary osteoarthritis, use Tylenol when necessary -BPH -Obstructive sleep apnea patient does not use CPAP -Morbid obesity BMI 47.5. Follow-up with dietitian's outpatient and follow with PCP -Coronary artery disease with a history of coronary bypass -GERD continue omeprazole -Troponin leak from CHF. No evidence of acute coronary syndrome Disposition: Home Patient Condition at Discharge: Stable Plan - Discharge Summary Discharge Rx Participant: No New Discharge Prescriptions: New Atorvastatin [Lipitor] 10 mg PO HS@1929 #30 tab Sennosides-Docusate Sodium [Senokot-S] 1 tab PO DAILY #1 tablet Continue Spironolactone [Aldactone] 25 mg PO DAILY@729 Multivitamin [Men's Multi-Vitamin] 1 tab PO HS@1929 Ascorbic Acid [Vitamin C] 500 mg PO BID@ Sacubitril/Valsartan [Entresto 24 mg-26 mg Tablet] 1 tab PO BID@ Apixaban [Eliquis] 5 mg PO BID@ carvediloL [Coreg*] 6.25 mg PO BID@ Benzonatate [Tessalon Perles] 100 mg PO TID PRN PRN Reason: Cough Nystatin Powder 1 applicate TOPICAL BID Mag Hydrox/Al Hydrox/Simeth [Maalox] 30 ml PO Q6H PRN PRN Reason: Indigestion Aspirin EC [Ecotrin Low Dose] 81 mg PO BID@729,1929 Melatonin 20 mg PO HS Sildenafil [Revatio] 60 - 100 mg PO DAILY PRN PRN Reason: erectile dysfunction Albuterol Sulfate [Ventolin HFA] 1 - 2 puff INHALATION RT-Q4H PRN PRN Reason: Shortness Of Breath Omeprazole 20 mg PO DAILY@729 Nystatin [Nystop] 1 applic TOPICAL BID Albuterol Nebulized [Ventolin Nebulized] 2.5 mg INHALATION RT-QID PRN PRN Reason: Shortness Of Breath Changed Furosemide [Lasix] 60 mg PO BID #60 tab Discontinued Simvastatin [Zocor] 20 mg PO HS@1929 Furosemide [Lasix] 40 mg PO HS@1929 Docusate [Colace] 100 mg PO HS@1929 Discharge Medication List Multivitamin [Men's Multi-Vitamin] 1 tab PO HS@192907/18/15 [History] Spironolactone [Aldactone] 25 mg PO DAILY@72907/18/15 [History] Ascorbic Acid [Vitamin C] 500 mg PO BID@729,192904/27/18 [History] Sacubitril/Valsartan [Entresto 24 mg-26 mg Tablet] 1 tab PO BID@729,192904/27/18 [History] Apixaban [Eliquis] 5 mg PO BID@07/06/18 [History] Benzonatate [Tessalon Perles] 100 mg PO TID PRN 07/06/18 [History] Nystatin Powder 1 applicate TOPICAL BID 07/06/18 [History] carvediloL [Coreg*] 6.25 mg PO BID@07/06/18 [History] Albuterol Nebulized [Ventolin Nebulized] 2.5 mg INHALATION RT-QID PRN 09/14/20 [History] Albuterol Sulfate [Ventolin HFA] 1 - 2 puff INHALATION RT-Q4H PRN 09/14/20 [History] Aspirin EC [Ecotrin Low Dose] 81 mg PO BID@0730,1930 09/14/20 [History] Mag Hydrox/Al Hydrox/Simeth [Maalox] 30 ml PO Q6H PRN 09/14/20 [History] Melatonin 20 mg PO HS 09/14/20 [History] Nystatin [Nystop] 1 applic TOPICAL BID 09/14/20 [History] Omeprazole 20 mg PO DAILY@0730 09/14/20 [History] Sildenafil [Revatio] 60 - 100 mg PO DAILY PRN 09/14/20 [History] Atorvastatin [Lipitor] 10 mg PO HS@1929 #30 tab 09/18/20 [Rx] Furosemide [Lasix] 60 mg PO BID #60 tab 09/18/20 [Rx] Sennosides-Docusate Sodium [Senokot-S] 1 tab PO DAILY #1 tablet 09/18/20 [Rx] Follow up Appointment(s)/Referral(s): Romero Jacobs MD [Primary Care Provider] - 1-2 days (office will call with time and date of follow up appointment) [facility], [NON-STAFF] - Afsaneh Ortega MD [STAFF PHYSICIAN] - 09/22/20 3:30 pm Patient Instructions/Handouts: Heart Failure (DC), Fluid Restriction (DC) Activity/Diet/Wound Care/Special Instructions: fluid restict 2000 cc/day lisandro wrap during daytime bmp - 5 days Discharge Disposition: HOME SELF-CARE
== END 2020-09-18 16:18 | disposition home or self-care (01) | DRG 292 ==
LOC: EC 21:30 → 3SCARD 09-15 00:07 → OBSVTOIN 09-17 13:58
PROVIDERS: ADMIT Hospitalist; ATTEND Hospitalist
DX: I11.0 Hypertensive heart disease with heart failure (principal); Z68.42 Body mass index [BMI] 45.0-49.9, adult; I48.19 Other persistent atrial fibrillation; I50.23 Acute on chronic systolic (congestive) heart failure; B37.2 Candidiasis of skin and nail; E03.9 Hypothyroidism, unspecified; E89.2 Postprocedural hypoparathyroidism; E66.01 Morbid (severe) obesity due to excess calories; Z20.822 Contact with and (suspected) exposure to COVID-19; E78.5 Hyperlipidemia, unspecified; F51.04 Psychophysiologic insomnia; G47.33 Obstructive sleep apnea (adult) (pediatric); I25.10 Atherosclerotic heart disease of native coronary artery without angina pectoris; I25.5 Ischemic cardiomyopathy; I45.10 Unspecified right bundle-branch block; K21.9 Gastro-esophageal reflux disease without esophagitis; K76.0 Fatty (change of) liver, not elsewhere classified; M19.91 Primary osteoarthritis, unspecified site; N40.0 Benign prostatic hyperplasia without lower urinary tract symptoms; Z79.01 Long term (current) use of anticoagulants; Z79.899 Other long term (current) drug therapy; Z80.42 Family history of malignant neoplasm of prostate; Z87.891 Personal history of nicotine dependence; Z95.1 Presence of aortocoronary bypass graft; Z95.810 Presence of automatic (implantable) cardiac defibrillator; R11.0 Nausea; R79.89 Other specified abnormal findings of blood chemistry; Z98.49 Cataract extraction status, unspecified eye; Z99.81 Dependence on supplemental oxygen
CPT/HCPCS: 36415; 71045; 76705; 80048; 80053; 83735; 83880; 84484; 85025; 85610; 85730; 86850; 86900; 86901; 87635; 93005; 94760; 99285

== ENCOUNTER 2020-12-10 13:50 | Inpatient (IN) | payer MEDICARE ==
--- NOTE | 2020-12-10 14:43 | ED ---
Extremity Problem HPI <Shorty Montano - Last Filed: 12/10/20 15:54> - General Source: patient Mode of arrival: wheelchair Limitations: physical limitation <Mame Haynes - Last Filed: 12/10/20 16:05> - General Chief complaint: Extremity Problem,Nontraumatic Stated complaint: LEG SWELLING Time Seen by Provider: 12/10/20 13:59 - History of Present Illness Initial comments: Patient is a 75-year-old male with history of A. fib, pacemaker, sleep apnea, occasionally uses 2 L of oxygen at home, presenting to the emergency Department with complaints of continued bilateral leg swelling and weeping 1 week. Patient states he has been taking 80 mg of Lasix twice a day, 2 tablets of metolazone per week as well as a potassium pill daily. He states he has gained about 35 pounds since September. He states he is developing wounds on his lower leg that are opening up and weeping. He states he followed up with his primary care physician who recommended he come in today hospital for further evaluation. He denies any chest pains, occasional shortness of breath but this is normal for him. He does have some nausea but states this has been present since his last hospitalization in September. No vomiting or diarrhea, no abdominal pain. He states he is able to still walk using a cane. He states when he becomes shortness breath he just stops until he catches his breath and then continues his way. He denies any falls or trauma. He denies any fevers or chills. He has no further complaints at this time. Upon arrival to the ER, his vital signs are stable. (Mame Haynes) - Related Data Home Medications Medication Instructions Recorded Confirmed Multivitamin [Men's Multi-Vitamin] 1 tab PO DAILY 07/18/15 12/10/20 Spironolactone [Aldactone] 25 mg PO DAILY 07/18/15 12/10/20 Sacubitril/Valsartan [Entresto 24 1 tab PO BID 04/27/18 12/10/20 mg-26 mg Tablet] Apixaban [Eliquis] 5 mg PO BID 07/06/18 12/10/20 Benzonatate [Tessalon Perles] 100 mg PO TID PRN 07/06/18 12/10/20 carvediloL [Coreg*] 12.5 mg PO BID 07/06/18 12/10/20 Aspirin EC [Ecotrin Low Dose] 81 mg PO BID 09/14/20 12/10/20 Nystatin [Nystop] 1 applic TOPICAL BID 09/14/20 12/10/20 Sildenafil [Revatio] 20 mg PO DAILY PRN 09/14/20 12/10/20 Ascorbic Acid [Vitamin C] 500 mg PO BID 12/10/20 12/10/20 Atorvastatin [Lipitor] 10 mg PO HS 12/10/20 12/10/20 Docusate [Colace] 200 mg PO BID 12/10/20 12/10/20 Furosemide [Lasix] 80 mg PO BID@1200,2100 12/10/20 12/10/20 Nitroglycerin Sl Tabs [Nitrostat] 0.4 mg SUBLINGUAL Q5M PRN 12/10/20 12/10/20 Ondansetron Odt [Zofran Odt] 8 mg PO BID@0900,1300 12/10/20 12/10/20 Pantoprazole Sodium [Protonix] 40 mg PO BID@0900,1300 12/10/20 12/10/20 Polyethylene Glycol 3350 [Miralax] 34 gm PO DAILY 12/10/20 12/10/20 Potassium Chloride [Klor-Con 20] 20 meq PO DAILY 12/10/20 12/10/20 Sucralfate 1 gm PO ACHS PRN 12/10/20 12/10/20 metOLazone [Zaroxolyn] 2.5 mg PO MOFR 12/10/20 12/10/20 Allergies Allergy/AdvReac Type Severity Reaction Status Date / Time No Known Allergies Allergy Verified 12/10/20 15:35 Review of Systems ROS Other: All systems not noted in ROS Statement are negative. <Shorty Montano - Last Filed: 12/10/20 15:54> ROS Other: All systems not noted in ROS Statement are negative. <Mame Haynes - Last Filed: 12/10/20 16:05> ROS Statement: Those systems with pertinent positive or pertinent negative responses have been documented in the HPI. Past Medical History Past Medical History: Atrial Fibrillation, Heart Failure, Hyperlipidemia, Osteoarthritis (OA), Prostate Disorder, Sleep Apnea/CPAP/BIPAP, Thyroid Disorder Additional Past Medical History / Comment(s): uses oxygen @2l PRN, KATHRINE not using C PAP at home currently, occ lower leg edema, History of Any Multi-Drug Resistant Organisms: None Reported Past Surgical History: Adenoidectomy, Coronary Bypass/CABG, Heart Catheterization, Tonsillectomy Additional Past Surgical History / Comment(s): parathyroidectomy, cataract surg., cardiac cath. 10-16-15 Past Anesthesia/Blood Transfusion Reactions: No Reported Reaction Type of Cardiac Device: Permanent Pacemaker, AICD Device Placement Date:: 05/2018 Past Psychological History: No Psychological Hx Reported Smoking Status: Never smoker Past Alcohol Use History: None Reported Past Drug Use History: None Reported - Past Family History Father Family Medical History: Cancer Additional Family Medical History / Comment(s): Father had prostate cancer with mets to the bone. He at age 76 yrs. <Mame Haynes Belén - Last Filed: 12/10/20 16:05> General Exam Limitations: physical limitation <IvyMame Belén - Last Filed: 12/10/20 16:05> - General Exam Comments Initial Comments: GENERAL: Patient is well-developed and well-nourished, obese male. Patient is nontoxic and in no acute distress. HEAD: Atraumatic, normocephalic. EYES: Pupils equal round and reactive to light, extraocular movements intact, sclera anicteric, conjunctiva are normal. Eyelids were unremarkable. ENT: TMs normal, nares patent, oropharynx clear without exudates. Moist mucous membranes. NECK: Normal range of motion, supple without lymphadenopathy or JVD. LUNGS: Unlabored respirations. Breath sounds clear to auscultation bilaterally and equal. No wheezes rales or rhonchi. HEART: Regular rate and rhythm without murmurs, rubs or gallops. ABDOMEN: Soft, nontender, normoactive bowel sounds. No guarding, no rebound. No masses appreciated. : Deferred MUSCULOSKELETAL: Normal extremities with adequate strength and normal range of motion. No clubbing or cyanosis. Patient has bilateral lower leg edema, dorsal pedis pulses are normal. NEUROLOGICAL: Patient is alert and oriented x 3. Motor and sensory are also intact. Cranial nerves II through XII grossly intact. Symmetrical smile. Normal speech, normal gait. PSYCH: Normal mood, normal affect. SKIN: Warm, Dry, normal turgor, no rashes. Patient has a few superficial open blisters on his right lower leg, he also has a small 1 cm superficial wound to the left inner thigh. No signs of infection. (Mame Haynes) Course <Shorty Montano - Last Filed: 12/10/20 15:54> Vital Signs 12/10/20 13:52 Temperature 97.5 F L Pulse Rate 105 H Respiratory 24 Rate Blood Pressure 100/70 O2 Sat by Pulse 97 Oximetry - Reevaluation(s) Reevaluation #1: 12/10/20 15:54 PA supervision: I personally evaluate this case patient presenting complaints of severe weight gain and peripheral edema. He's had an extensive amount of weight gain recently. This is in spite of taking his medication. Patient does have evidence of fluid overload CHF he will be admitted for evaluation case was discussed with Dr. Cortez. X-ray does show evidence of fluid overload as well as cardiomegaly. (Shorty Montano) Medical Decision Making - Lab Data Result diagrams: 12/10/20 14:37 12/10/20 14:37 <Shorty Montano - Last Filed: 12/10/20 15:54> - Lab Data Result diagrams: 12/10/20 14:37 12/10/20 14:37 <Mame Haynes - Last Filed: 12/10/20 16:05> - Medical Decision Making Patient is a 75-year-old male with history of heart failure, sleep apnea, uses 2 L of O2 occasionally at home, presenting with increase in weight, bilateral lower leg extremity swelling and blisters. Vital signs are stable upon arrival, EKG shows no acute process. Chest x-ray shows CHF exacerbation with cardiomegaly, moderate central vascular congestion. Labs show normal white count, creatinine is elevated from baseline at 1.75, BUN is 54. BNP is 7600. Patient will be admitted for CHF exacerbation, AMALIA. Patient accepted by Dr. Cortez, with consult to nephrology. Patient started on Lasix. Case discussed with Dr. Montano. (Mame Haynes) - Lab Data Lab Results 12/10/20 12/10/20 12/10/20 Range/Units 14:37 14:37 14:37 WBC 6.3 (3.8-10.6) k/uL RBC 4.65 (4.30-5.90) m/uL Hgb 14.3 (13.0-17.5) gm/dL Hct 42.8 (39.0-53.0) % MCV 91.9 (80.0-100.0) fL MCH 30.8 (25.0-35.0) pg MCHC 33.5 (31.0-37.0) g/dL RDW 15.2 (11.5-15.5) % Plt Count 114 L (150-450) k/uL MPV 8.4 Neutrophils % 80 % Lymphocytes % 10 % Monocytes % 7 % Eosinophils % 2 % Basophils % 1 % Neutrophils # 5.0 (1.3-7.7) k/uL Lymphocytes # 0.6 L (1.0-4.8) k/uL Monocytes # 0.4 (0-1.0) k/uL Eosinophils # 0.1 (0-0.7) k/uL Basophils # 0.0 (0-0.2) k/uL PT 13.9 H (9.0-12.0) sec INR 1.4 H (<1.2) APTT 26.1 (22.0-30.0) sec Sodium 137 (137-145) mmol/L Potassium 4.4 (3.5-5.1) mmol/L Chloride 98 (98-107) mmol/L Carbon Dioxide 31 H (22-30) mmol/L Anion Gap 8 mmol/L BUN 54 H (9-20) mg/dL Creatinine 1.75 H (0.66-1.25) mg/dL Est GFR (CKD-EPI)AfAm 44 (>60 ml/min/1.73 sqM) Est GFR (CKD-EPI)NonAf 38 (>60 ml/min/1.73 sqM) Glucose 132 H (74-99) mg/dL Plasma Lactic Acid Abbe (0.7-2.0) mmol/L Calcium 9.3 (8.4-10.2) mg/dL Total Bilirubin 0.9 (0.2-1.3) mg/dL AST 37 (17-59) U/L ALT 45 (4-49) U/L Alkaline Phosphatase 214 H (38-126) U/L NT-Pro-B Natriuret Pep pg/mL Total Protein 5.9 L (6.3-8.2) g/dL Albumin 3.4 L (3.5-5.0) g/dL 12/10/20 12/10/20 Range/Units 14:37 14:37 WBC (3.8-10.6) k/uL RBC (4.30-5.90) m/uL Hgb (13.0-17.5) gm/dL Hct (39.0-53.0) % MCV (80.0-100.0) fL MCH (25.0-35.0) pg MCHC (31.0-37.0) g/dL RDW (11.5-15.5) % Plt Count (150-450) k/uL MPV Neutrophils % % Lymphocytes % % Monocytes % % Eosinophils % % Basophils % % Neutrophils # (1.3-7.7) k/uL Lymphocytes # (1.0-4.8) k/uL Monocytes # (0-1.0) k/uL Eosinophils # (0-0.7) k/uL Basophils # (0-0.2) k/uL PT (9.0-12.0) sec INR (<1.2) APTT (22.0-30.0) sec Sodium (137-145) mmol/L Potassium (3.5-5.1) mmol/L Chloride (98-107) mmol/L Carbon Dioxide (22-30) mmol/L Anion Gap mmol/L BUN (9-20) mg/dL Creatinine (0.66-1.25) mg/dL Est GFR (CKD-EPI)AfAm (>60 ml/min/1.73 sqM) Est GFR (CKD-EPI)NonAf (>60 ml/min/1.73 sqM) Glucose (74-99) mg/dL Plasma Lactic Acid Abbe 1.1 (0.7-2.0) mmol/L Calcium (8.4-10.2) mg/dL Total Bilirubin (0.2-1.3) mg/dL AST (17-59) U/L ALT (4-49) U/L Alkaline Phosphatase (38-126) U/L NT-Pro-B Natriuret Pep 7650 pg/mL Total Protein (6.3-8.2) g/dL Albumin (3.5-5.0) g/dL - EKG Data EKG Comments: Left axis deviation, right B BP, T-wave abnormality, no signs of acute ischemia. He does read suspect unspecified pacemaker failure however this EKG is similar to his previous on 09/14/2020. EKG reviewed by Dr. Montano. Ventricular rate 70, ND normal 142, QTC 462. (Mame Haynes) Disposition <Shorty Montano - Last Filed: 12/10/20 15:54> Decision Date: 12/10/20 Decision Time: 16:05 <Mame Haynes - Last Filed: 12/10/20 16:05> Clinical Impression: CHF exacerbation, AMALIA (acute kidney injury) Disposition: ADMITTED IP TO THIS [facility] Condition: Stable Referrals: Romero Jacobs MD [Primary Care Provider] - 1-2 days
[2020-12-10 14:50] LABS: Basophils % (A) 1 %; Eosinophils # (A) 0.1 k/uL (0-0.7); Eosinophils % (A) 2 %; HCT 42.8 % (39.0-53.0); HGB 14.3 gm/dL (13.0-17.5); Lymphocytes # (A) 0.6 k/uL (1.0-4.8); Lymphocytes % (A) 10 %; MCH 30.8 pg (25.0-35.0); MCHC 33.5 g/dL (31.0-37.0); MCV 91.9 fL (80.0-100.0); Mean Platelet Volume 8.4; Monocytes # (A) 0.4 k/uL (0-1.0); Monocytes % (A) 7 %; Neutrophils % (A) 80 %; Platelet Count 114 k/uL (150-450); RBC 4.65 m/uL (4.30-5.90); RDW 15.2 % (11.5-15.5); WBC 6.3 k/uL (3.8-10.6)
[2020-12-10 14:57] LABS: Albumin 3.4 g/dL (3.5-5.0); Calcium 9.3 mg/dL (8.4-10.2); Potassium 4.4 mmol/L (3.5-5.1); Total Bilirubin 0.9 mg/dL (0.2-1.3); Total Protein 5.9 g/dL (6.3-8.2)
[2020-12-10 15:03] LABS: INR 1.4 (<1.2); Partial Thromboplastin Time 26.1 sec (22.0-30.0); Prothrombin Time 13.9 sec (9.0-12.0)
--- NOTE | 2020-12-10 15:31 | XR ---
EXAMINATION TYPE: XR chest 2V DATE OF EXAM: 12/10/2020 COMPARISON: Chest x-ray September 14, 2020 HISTORY: Weakness. TECHNIQUE: Frontal and lateral views of the chest are obtained. FINDINGS: Exam is suboptimal due to patient's large body habitus. Overlying Sternal wires redemonstra beny. Persistent cardiomegaly with moderate central vascular congestion. No pleural effusion or pneumo thorax seen. Dual-lead pacemaker/defibrillator redemonstrated. Osseous structures are intact. IMPRESSION: Correlate for CHF exacerbation as there is cardiomegaly with moderate central vascular c ongestion redemonstrated.
[2020-12-10] MEDS ORDERED: FUROSEMIDE 10 MG/ML 2 ML VIAL IV ONE (16:02)
[2020-12-10 16:22] LABS: Appearance,Urine Clear (Clear); Bilirubin,Urine Negative (Negative); Blood,Urine Negative (Negative); Color,Urine Yellow; Glucose,Urine (UA) Negative (Negative); Ketones,Urine Negative (Negative); Leukocyte Esterase,Urine Negative (Negative); Nitrite,Urine Negative (Negative); PH, Urine 5.5 (5.0-8.0); Protein,Urine Trace (Negative); Specific Gravity,Urine 1.015 (1.001-1.035); Urobilinogen,Urine <2.0 mg/dL (<2.0)
[2020-12-10] MEDS ORDERED: BENZONATATE 100 MG CAP PO PRN (19:28)
[2020-12-10] MEDS ORDERED: NITROGLYCERIN SL TABS 0.4 MG TAB SUBLINGUAL PRN (19:28)
[2020-12-10] MEDS: ASCORBIC ACID 500 MG TAB PO SCH (20:12)
[2020-12-10] MEDS: ATORVASTATIN 10 MG TAB PO SCH (20:12)
[2020-12-10] MEDS: APIXABAN 5 MG TAB PO SCH (20:12)
[2020-12-10] MEDS: ASPIRIN 81 MG PO SCH (20:12)
[2020-12-10] MEDS: carvediloL 12.5 MG TAB PO SCH (20:13)
--- NOTE | 2020-12-10 21:39 | P.HPIM ---
History of Present Illness H&P Date: 12/10/20 Chief Complaint: Increased swelling of the legs Chief Complaint: Short of breath History of presenting complaint: This is a 75-year-old patient of Dr. Romero Jacobs. Follows with trade recruiter Dr. Clements. Chronic stable medical conditions include atrial fibrillation, osteoarthritis, hyperlipidemia, prostate disorder, obstructive sleep apnea does not use CPAP, hypothyroid, coronary artery disease with bypass. Does have a walker at home. Patient now presents with progressive increasing weight, lower extremity edema starting of blisters on the legs, short of breath. Orthopnea. Patient does sleep sitting up. Appetite is fair. No change in bowel pattern. No fever no chills. Review of systems: GEN.: Tired EYES: None HEENT: None NECK: None RESPIRATORY: [As above CARDIOVASCULAR: As above GASTROINTESTINAL: None GENITOURINARY: None MUSCULOSKELETAL: Joint pains LYMPHATICS: None DERMATOLOGICAL: None HEMATOLOGICAL: None PSYCHIATRY: None NEUROLOGICAL: None Past medical history to include: Atrial fibrillation, CHF, hyperlipidemia, osteoarthritis, prostate disorder, obstructive sleep apnea does not use CPAP, home oxygen 2 L when necessary, coronary artery disease with bypass, thyroidectomy, permanent pacemaker with AICD Social history: Lives with his granddaughter. Does use a walker/cane. Patient quit daily using a pipe 40 years ago. No alcohol. Physical examination: VITAL SIGNS: 97.6, 105, 18, 91/63, 98% room air GENERAL: BMI 50.9, reclining in bed, slightly short of breath. EYES: Pupils equal. Conjunctiva normal. HEENT: External appearance of nose and ears normal, oral cavity grossly normal. NECK: JVD unable to assess; masses not palpable. HEART: Distant heart sounds; significant edema. LUNGS: Respiratory rate increased; decreased breath sounds ABDOMEN: Soft, nontender, liver spleen not palpable, no masses palpable. DERMATOLOGICAL: Redness skin both the groin folds PSYCH: Alert and oriented x3; mood and affect normal. NEUROLOGICAL: Cranial nerves grossly intact; no facial asymmetry, power and sensation grossly intact. MUSCULAR skeletal: Evidence of OA LYMPHATICS: No lymph nodes palpable in the axilla and neck INVESTIGATIONS, reviewed in the clinical context: WBC 6.3 hemoglobin 14.3 platelets 114 potassium 4.4 bun 54 creatinine 1.75 ProBNP 7650 Coronavirus [PCR]-not detected EKG tracing personally reviewed by me-normal sinus rhythm, right bundle-branch block Chest x-ray film personally reviewed by me-pulmonary edema, pacemaker Previous labs: 09/18/2020: BUN 35 creatinine 1.03 Assessment and plan: -Acute on chronic congestive heart failure exacerbation, EF not known. Start the patient on Lasix drip 10 mg an hour. Strict I's and O's. -Acute kidney injury likely prerenal from cardiorenal syndrome Follow electrolytes -Paroxysmal atrial fibrillation, currently in sinus rhythm on eliquis -Intertriginous ezra infection of bilateral groin Topical nystatin powder -AICD -Hyperlipidemia- Continue Lipitor -Chronic insomnia -, multifactorial continued use melatonin -Primary osteoarthritis, use Tylenol when necessary -BPH -Obstructive sleep apnea patient does not use CPAP -Morbid obesity BMI 50.9. Weight loss measures and follow-up with dietitian and PCP -Coronary artery disease with a history of coronary bypass Continue with aspirin, beta fior -GERD continue omeprazole Patient is put on Lasix drip. Strict I's and O's. Cardiology consultation. 2- D echo. Fluid restriction. Given the complexity and severity of patient's condition expect the patient to be in the hospital at least for 2 overnights Past Medical History Past Medical History: Atrial Fibrillation, Heart Failure, Hyperlipidemia, Osteoarthritis (OA), Prostate Disorder, Sleep Apnea/CPAP/BIPAP, Thyroid Disorder Additional Past Medical History / Comment(s): uses oxygen @2l PRN, KATHRINE not using C PAP at home currently, occ lower leg edema. History of Any Multi-Drug Resistant Organisms: None Reported Past Surgical History: Adenoidectomy, Coronary Bypass/CABG, Heart Catheterization, Tonsillectomy Additional Past Surgical History / Comment(s): parathyroidectomy, cataract surg., cardiac cath. 10-16-15, AICD/Pacer Past Anesthesia/Blood Transfusion Reactions: No Reported Reaction Type of Cardiac Device: Permanent Pacemaker, AICD Device Placement Date:: 05/2018 Past Psychological History: No Psychological Hx Reported Additional Psychological History / Comment(s): Pt lives at home with granddaughter. He uses walker at home. Smoking Status: Never smoker Past Alcohol Use History: None Reported Additional Past Alcohol Use History / Comment(s): used to smoke a pipe, quit 40 yrs. ago Past Drug Use History: None Reported - Past Family History Father Family Medical History: Cancer Additional Family Medical History / Comment(s): Father had prostate cancer with mets to the bone. He at age 76 yrs. Medications and Allergies Home Medications Medication Instructions Recorded Confirmed Type Multivitamin [Men's Multi-Vitamin] 1 tab PO DAILY 07/18/15 12/10/20 History Spironolactone [Aldactone] 25 mg PO DAILY 07/18/15 12/10/20 History Sacubitril/Valsartan [Entresto 24 1 tab PO BID 04/27/18 12/10/20 History mg-26 mg Tablet] Apixaban [Eliquis] 5 mg PO BID 07/06/18 12/10/20 History Benzonatate [Tessalon Perles] 100 mg PO TID PRN 07/06/18 12/10/20 History carvediloL [Coreg*] 12.5 mg PO BID 07/06/18 12/10/20 History Aspirin EC [Ecotrin Low Dose] 81 mg PO BID 09/14/20 12/10/20 History Nystatin [Nystop] 1 applic TOPICAL BID 09/14/20 12/10/20 History Sildenafil [Revatio] 20 mg PO DAILY PRN 09/14/20 12/10/20 History Ascorbic Acid [Vitamin C] 500 mg PO BID 12/10/20 12/10/20 History Atorvastatin [Lipitor] 10 mg PO HS 12/10/20 12/10/20 History Docusate [Colace] 200 mg PO BID 12/10/20 12/10/20 History Furosemide [Lasix] 80 mg PO BID@1200,2100 12/10/20 12/10/20 History Nitroglycerin Sl Tabs [Nitrostat] 0.4 mg SUBLINGUAL Q5M PRN 12/10/20 12/10/20 History Ondansetron Odt [Zofran Odt] 8 mg PO BID@0900,1300 12/10/20 12/10/20 History Pantoprazole Sodium [Protonix] 40 mg PO BID@0900,1300 12/10/20 12/10/20 History Polyethylene Glycol 3350 [Miralax] 34 gm PO DAILY 12/10/20 12/10/20 History Potassium Chloride [Klor-Con 20] 20 meq PO DAILY 12/10/20 12/10/20 History Sucralfate 1 gm PO ACHS PRN 12/10/20 12/10/20 History metOLazone [Zaroxolyn] 2.5 mg PO MOFR 12/10/20 12/10/20 History Allergies Allergy/AdvReac Type Severity Reaction Status Date / Time No Known Allergies Allergy Verified 12/10/20 15:35 Physical Exam Vitals: Vital Signs Temp Pulse Resp BP BP Pulse Ox 12/10/20 20:00 97.6 F 18 91/63 98 12/10/20 13:52 97.5 F L 105 H 24 100/70 97 Intake and Output 12/10/20 12/10/20 12/10/20 06:59 14:59 22:59 Other: Weight 165.561 kg 165.561 kg Results CBC & Chem 7: 12/10/20 14:37 12/10/20 14:37 Labs: Abnormal Lab Results - Last 24 Hours (Table) 12/10/20 12/10/20 12/10/20 Range/Units 14:37 14:37 14:37 Plt Count 114 L (150-450) k/uL Lymphocytes # 0.6 L (1.0-4.8) k/uL PT 13.9 H (9.0-12.0) sec INR 1.4 H (<1.2) Carbon Dioxide (22-30) mmol/L BUN (9-20) mg/dL Creatinine (0.66-1.25) mg/dL Glucose (74-99) mg/dL Alkaline Phosphatase (38-126) U/L Total Protein (6.3-8.2) g/dL Albumin (3.5-5.0) g/dL Urine Protein Trace H (Negative) 12/10/20 Range/Units 14:37 Plt Count (150-450) k/uL Lymphocytes # (1.0-4.8) k/uL PT (9.0-12.0) sec INR (<1.2) Carbon Dioxide 31 H (22-30) mmol/L BUN 54 H (9-20) mg/dL Creatinine 1.75 H (0.66-1.25) mg/dL Glucose 132 H (74-99) mg/dL Alkaline Phosphatase 214 H (38-126) U/L Total Protein 5.9 L (6.3-8.2) g/dL Albumin 3.4 L (3.5-5.0) g/dL Urine Protein (Negative) Thrombosis Risk Factor Assmnt - Choose All That Apply Any of the Below Risk Factors Present?: Yes Each Factor Represents 1 point: Obesity (BMI >25) Other Risk Factors: Yes Each Risk Factor Represents 2 Points: Age 61-74 years Thrombosis Risk Factor Assessment Total Risk Factor Score: 3 Thrombosis Risk Factor Assessment Level: Moderate Risk
[2020-12-10] MEDS: NYSTATIN 100,000 UNIT/GM POWD 15 GM TOPICAL SCH (22:22)
[2020-12-10] MEDS: FUROSEMIDE 100 MG in SODIUM CHLORIDE 0.9% 90 ML IV SCH (22:22)
[2020-12-11 06:33] LABS: African American GFR (CKD) 46 (>60 ml/min/1.73 sqM); Anion Gap 7 mmol/L; Blood Urea Nitrogen 56 mg/dL (9-20); Calcium 9.4 mg/dL (8.4-10.2); Carbon Dioxide 32 mmol/L (22-30); Chloride 96 mmol/L (98-107); Glucose 124 mg/dL (74-99); Non-African American GFR(CKD) 40 (>60 ml/min/1.73 sqM); Potassium 4.1 mmol/L (3.5-5.1); Sodium 135 mmol/L (137-145)
[2020-12-11] MEDS: POTASSIUM CHLORIDE ER 20 MEQ TAB.ER PO SCH (07:58)
[2020-12-11] MEDS: ASCORBIC ACID 500 MG TAB PO SCH ×2 (07:58→20:18)
[2020-12-11] MEDS: APIXABAN 5 MG TAB PO SCH ×2 (07:58→20:18)
[2020-12-11] MEDS: ASPIRIN 81 MG PO SCH ×2 (07:58→20:18)
[2020-12-11] MEDS: SPIRONOLACTONE 25 MG TAB PO SCH (07:59)
[2020-12-11] MEDS: MULTIVITAMINS, THERA 1 EACH TAB PO SCH (07:59)
[2020-12-11] MEDS: PANTOPRAZOLE 40 MG TABLET PO SCH ×2 (07:59→13:06)
[2020-12-11] MEDS: polyethylene glycoL 3350 17 GM POWD.PACK PO SCH (07:59)
[2020-12-11] MEDS: NYSTATIN 100,000 UNIT/GM POWD 15 GM TOPICAL SCH ×2 (07:59→20:18)
--- NOTE | 2020-12-11 10:55 | ECHOF ---
Referral Reason:Assess LV function MEASUREMENTS -------- HEIGHT: 180.3 cm WEIGHT: 165.6 kg BP: RVIDd: 4.3 cm (< 3.3) IVSd: 1.3 cm (0.6 - 1.1) LVIDd: 6.3 cm (3.9 - 5.3) LVPWd: 1.8 cm (0.6 - 1.1) IVSs: 1.7 cm LVIDs: 6.2 cm LVPWs: 1.6 cm Ao Diam: 3.4 cm (2.0 - 3.7) AV Cusp: 1.8 cm (1.5 - 2.6) LA Diam: 6.3 cm (2.7 - 3.8) MV EXCURSION: 13.362 mm (> 18.000) MV EF SLOPE: 113 mm/s (70 - 150) EPSS: 3.1 cm MV E Kin: 1.01 m/s MV DecT: 199 ms MV A Kin: 0.27 m/s MV E/A Ratio: 3.70 RAP: 5.00 mmHg RVSP: 25.72 mmHg FINDINGS -------- AICD This was a technically difficult study with suboptimal views. The left ventricle is moderately dilated. There is moderate concentric left ventricular hypertrophy . Overall left ventricular systolic function is severely impaired with, an EF < 20%. The right ventricle is severely enlarged. The left atrium is markedly dilated. The right atrial size is normal. The aortic valve is trileaflet and appears structurally normal. The mitral valve is normal. [id number] mitral regurgitation is present. The tricuspid valve appears structurally normal. Mild tricuspid regurgitation present. Right vent ricular systolic pressure is normal at < 35 mmHg. Trace/mild (physiologic) pulmonic regurgitation. The aortic root size is normal. IVC Not well visulized. There is no pericardial effusion. CONCLUSIONS -------- 1. AICD 2. The left ventricle is moderately dilated. 3. There is moderate concentric left ventricular hypertrophy. 4. Overall left ventricular systolic function is severely impaired with, an EF < 20%. 5. The right ventricle is severely enlarged. 6. The left atrium is markedly dilated. 7. [id number] mitral regurgitation is present. 8. Mild tricuspid regurgitation present. 9. Trace/mild (physiologic) pulmonic regurgitation. 10. There is no pericardial effusion. VENUE COORDINATOR: Radha Ferreira RDCS
[2020-12-11] MEDS: FUROSEMIDE 100 MG in SODIUM CHLORIDE 0.9% 90 ML IV SCH (11:05)
[2020-12-11] MEDS: carvediloL 12.5 MG TAB PO SCH ×2 (11:06→17:50)
[2020-12-11 11:49] VITALS: BMI 50.9
[2020-12-11] MEDS ORDERED: LACTULOSE 20 GM/30 ML CUP PO ONE (13:48)
[2020-12-11] MEDS ORDERED: FUROSEMIDE 10 MG/ML 4 ML VIAL IV SCH (14:00)
--- NOTE | 2020-12-11 16:35 | CONS ---
CONSULTATION REASON FOR CONSULTATION: Renal failure. HISTORY OF PRESENT ILLNESS: The patient is a 75-year-old male who was admitted to the hospital on 12/10/2020 with complaints of shortness of breath and worsening lower extremity edema and weight gain. He does have history of hypertension, coronary artery disease, chronic atrial fibrillation, hypothyroidism. The patient states that he noticed worsening edema over the past few months, worse in the last few weeks. No fever, chills, nausea, vomiting, abdominal pain. Patient denies any prior history of kidney diseases. Serum creatinine was 1.75 mg/dL on admission. Previous labs on 09/18/2020 show creatinine of 1.03. Patient denies use of any nonsteroidal anti-inflammatory agents prior to his admission. He was maintained on Entresto. His ejection fraction noted on echocardiogram today shows EF less than 20%. Currently patient is maintained on Lasix. He has been started on Lasix drip. He states he is not feeling significantly better. Patient states that he does have a history of BPH and follows with Dr. Melgoza as outpatient. He has currently been voiding okay. Blood pressures have been low, with systolic around 90 to 89 mmHg. Entresto is on hold. PAST MEDICAL HISTORY: Significant for coronary artery disease, morbid obesity, hypertension, hypothyroidism, osteoarthritis, BPH, obstructive sleep apnea, chronic atrial fibrillation, CHF, cardiomyopathy, EF less than 20%, history of thyroidectomy, permanent pacemaker placement, coronary artery bypass surgery. SOCIAL HISTORY: Negative for drug abuse or alcohol abuse. Former smoker. MEDICATIONS: Medications prior to admission included Zaroxolyn, Coreg, Aldactone, Revatio, Entresto, potassium, MiraLAX, Protonix, Zofran, Nitrostat, Lasix, Colace, Lipitor, vitamin C, Eliquis. PHYSICAL EXAMINATION: Patient is currently comfortable, awake. He is not in any acute distress. Blood pressure 92/67, heart rate 74 per minute. He is afebrile. EXAMINATION OF THE HEART: S1 and S2. EXAMINATION OF LUNGS: Decreased breath sounds at bases. ABDOMEN: Soft, morbidly obese. Examination of lower extremities shows edema 3 to 4+ bilaterally with significant chronic skin changes. [employer] exam is grossly intact. LABS: Sodium 135, potassium 4.1, chloride 96, BUN 56, serum creatinine 1.69, hemoglobin 14.3 g/dL. ASSESSMENT: 1. Acute kidney injury, mostly cardiorenal. Patient's blood pressure is low. He probably runs low blood pressure routinely with severe cardiomyopathy. We will diurese him but avoid aggressive diuresis, given the significant cardiomyopathy. I will switch to IV push Lasix. We can use a larger dose. If the patient is on the Lasix drip, we can continue that for 24 hours with repeat labs in a.m. Serum creatinine is actually lower today. 2. Morbid obesity. 3. Severe cardiomyopathy, ejection fraction less than 20%. Thank you for the consultation. Will continue to follow the patient with you during his hospitalization. MMODL / IJN: [id number] /
--- NOTE | 2020-12-11 19:34 | P.PN ---
Progress Note - Text Progress Note Date: 12/11/20 Chief Complaint: Short of breath History of presenting complaint: This is a 75-year-old patient of Dr. Romero Jacobs. Follows with collection card clerk Dr. Clements. Chronic stable medical conditions include atrial fibrillation, osteoarthritis, hyperlipidemia, prostate disorder, obstructive sleep apnea does not use CPAP, hypothyroid, coronary artery disease with bypass. Does have a walker at home. Patient now presents with progressive increasing weight, lower extremity edema starting of blisters on the legs, short of breath. Orthopnea. Patient does sleep sitting up. Appetite is fair. No change in bowel pattern. No fever no chills. Admitted with acute congestive heart exacerbation and acute kidney injury felt to be cardio withdrawal syndrome. Patient was started on IV Lasix drip. Today: Edema persists. Seen by nephrology. Lasix changed to IV push 40 mg daily. Oral intake fair. Review of systems: Was done for constitutional, cardiovascular, GI, pulmonary. relevant finding as above Active Medications Apixaban (Apixaban 5 Mg Tab) 5 mg PO BID [facility] Last Admin: 12/11/20 07:58 Dose: 5 mg Documented by: Ascorbic Acid (Ascorbic Acid 500 Mg Tab) 500 mg PO BID [facility] Last Admin: 12/11/20 07:58 Dose: 500 mg Documented by: Aspirin (Aspirin 81 Mg) 81 mg PO BID [facility] Last Admin: 12/11/20 07:58 Dose: 81 mg Documented by: Atorvastatin Calcium (Atorvastatin 10 Mg Tab) 10 mg PO HS [facility] Last Admin: 12/10/20 20:12 Dose: 10 mg Documented by: Benzonatate (Benzonatate 100 Mg Cap) 100 mg PO TID PRN PRN Reason: Cough Carvedilol (Carvedilol 12.5 Mg Tab) 12.5 mg PO BID-W/MEALS [facility] Last Admin: 12/11/20 17:50 Dose: 12.5 mg Documented by: Furosemide (Furosemide 10 Mg/Ml 4 Ml Vial) 40 mg IV DAILY [facility] Last Admin: 12/11/20 15:12 Dose: 40 mg Documented by: Multivitamins (Multivitamins, Thera 1 Each Tab) 1 each PO DAILY [facility] Last Admin: 12/11/20 07:59 Dose: 1 each Documented by: Nitroglycerin (Nitroglycerin Sl Tabs 0.4 Mg Tab) 0.4 mg SUBLINGUAL Q5M PRN PRN Reason: Chest Pain Nystatin (Nystatin 100,000 Unit/Gm Powd 15 Gm) 1 applic TOPICAL BID [facility] Last Admin: 12/11/20 07:59 Dose: 1 applic Documented by: Pantoprazole Sodium (Pantoprazole 40 Mg Tablet) 40 mg PO BID@0900,1300 [facility] Last Admin: 12/11/20 13:06 Dose: 40 mg Documented by: Polyethylene Glycol (Polyethylene Glycol 3350 17 Gm Powd.Pack) 34 gm PO DAILY [facility] Last Admin: 12/11/20 07:59 Dose: 34 gm Documented by: Potassium Chloride (Potassium Chloride Er 20 Meq Tab.Er) 20 meq PO DAILY [facility] Last Admin: 12/11/20 07:58 Dose: 20 meq Documented by: Spironolactone (Spironolactone 25 Mg Tab) 25 mg PO DAILY [facility] Last Admin: 12/11/20 07:59 Dose: 25 mg Documented by: Past medical history to include: Atrial fibrillation, CHF, hyperlipidemia, osteoarthritis, prostate disorder, obstructive sleep apnea does not use CPAP, home oxygen 2 L when necessary, coronary artery disease with bypass, thyroidectomy, permanent pacemaker with AICD Social history: Lives with his granddaughter. Does use a walker/cane. Patient quit daily using a pipe 40 years ago. No alcohol. Physical examination: VITAL SIGNS: 97.5, 74, 18, 92 x 67, 94% room air GENERAL: BMI 50.9, sitting of the edge of the bed, some shortness of breath EYES: Pupils equal. Conjunctiva normal. NECK: JVD unable to assess; masses not palpable. HEART: Distant heart sounds; significant edema. LUNGS: Respiratory rate increased; decreased breath sounds ABDOMEN: Soft, nontender, liver spleen not palpable, no masses palpable. DERMATOLOGICAL: Redness skin both the groin folds PSYCH: Alert and oriented x3; mood and affect normal. MUSCULAR skeletal: Evidence of OA INVESTIGATIONS, reviewed in the clinical context: 2-D echocardiogram: Moderate LVH. Mild to moderate MR. EF less than 20%. December 11: Potassium 4.1 bun 56 creatinine 1.69 WBC 6.3 hemoglobin 14.3 platelets 114 potassium 4.4 bun 54 creatinine 1.75 ProBNP 7650 Coronavirus [PCR]-not detected EKG tracing personally reviewed by me-normal sinus rhythm, right bundle-branch block Chest x-ray film personally reviewed by me-pulmonary edema, pacemaker Previous labs: 09/18/2020: BUN 35 creatinine 1.03 Assessment and plan: -Acute on chronic congestive heart failure exacerbation, from systolic dysf unction. EF less than 20%-slow to respond Lasix drip 10 mg an hour.-Changed over to IV Lasix push 40 mg daily. Strict I's and O's. Fluid restriction. -Acute kidney injury likely prerenal from cardiorenal syndrome Follow electrolytes -Paroxysmal atrial fibrillation, currently in sinus rhythm on eliquis -Intertriginous ezra infection of bilateral groin Topical nystatin powder -AICD -Hyperlipidemia- Continue Lipitor -Chronic insomnia -, multifactorial continued use melatonin -Primary osteoarthritis, use Tylenol when necessary -BPH -Obstructive sleep apnea patient does not use CPAP -Morbid obesity BMI 50.9. Weight loss measures and follow-up with dietitian and PCP -Coronary artery disease with a history of coronary bypass Continue with aspirin, beta fior -GERD continue omeprazole Follow electrolytes closely. change to IV Lasix push. Follow with nephrology and cardiology
[2020-12-11] MEDS: ATORVASTATIN 10 MG TAB PO SCH (20:18)
[2020-12-12] MEDS: polyethylene glycoL 3350 17 GM POWD.PACK PO SCH (08:33)
[2020-12-12] MEDS: MULTIVITAMINS, THERA 1 EACH TAB PO SCH (08:34)
[2020-12-12] MEDS: APIXABAN 5 MG TAB PO SCH ×2 (08:34→21:44)
[2020-12-12] MEDS: NYSTATIN 100,000 UNIT/GM POWD 15 GM TOPICAL SCH ×2 (08:34→21:46)
[2020-12-12] MEDS: ASPIRIN 81 MG PO SCH ×2 (08:34→21:44)
[2020-12-12] MEDS: ASCORBIC ACID 500 MG TAB PO SCH ×2 (08:34→21:44)
[2020-12-12] MEDS: carvediloL 12.5 MG TAB PO SCH ×2 (08:34→16:50)
[2020-12-12] MEDS: SPIRONOLACTONE 25 MG TAB PO SCH (08:34)
[2020-12-12] MEDS: PANTOPRAZOLE 40 MG TABLET PO SCH ×2 (08:34→16:50)
[2020-12-12] MEDS: POTASSIUM CHLORIDE ER 20 MEQ TAB.ER PO SCH (08:34)
[2020-12-12] MEDS: metOLazone 5 MG TAB PO SCH (09:10)
[2020-12-12] MEDS: FUROSEMIDE 10 MG/ML 10 ML VIAL IV SCH ×2 (09:11→21:44)
--- NOTE | 2020-12-12 11:14 | P.CRDCN ---
History of Present Illness Consult date: 12/12/20 History of present illness: HISTORY OF PRESENT ILLNESS: This is a 75-year-old male with a past medical history significant for ischemic cardiac myopathy with previous AICD, coronary artery disease with previous CABG, paroxysmal atrial fibrillation, congestive heart failure, hypertension, and hyperlipidemia. Patient follows in the office with Dr. Ortega. We have been asked to see the patient in consultation for congestive heart failure. Patient examined at the bedside. Patient was hospitalized in September 2020 secondary to congestive heart failure. Patient was discharged home on 60 mg of Lasix twice a day. He states he followed up in the office and his preventive maintenance coordinator increased his Lasix to 80 mg twice a day but he continued to have lower extremity swelling. He states Zaroxolyn was then added to his medication regimen. He states he has a blister on his right leg and he went to see his primary care physician who told him that it would not heal until his leg swelling decreased and recommended that he come to the hospital for further evaluation. Patient currently denies chest pain or pressure. He denies shortness of breath at the time of examination. Denies cough or congestion. Denies dizziness or lightheadedness. EKG reveals paced rhythm with no signs of acute ischemia Chest xray: Correlate for CHF exacerbation as there is cardiomegaly with moderate central vascular congestion redemonstrated. Laboratory data: WBC 6.3. Hemoglobin 14.3. Platelet count 114. Sodium 135. Potassium 4.1. BUN 56. Creatinine 1.69. Lactic acid 1.1. BNP 7650. Current home cardiac medications include Coreg 12.5 mg twice a day, Zaroxolyn 2.5 mg Mondays and Fridays, spironolactone 25 mg daily, Entresto 2426 milligrams 2 times a day, Lasix 80 mg twice a day, Lipitor 10 mg daily, aspirin 81 mg daily, and Eliquis 5 mg twice a day Echocardiogram completed revealed ejection fraction less than 20% Patient underwent Lexiscan in 2018 which was negative for reversible ischemia REVIEW OF SYSTEMS: At the time of my exam: CONSTITUTIONAL: Denies fever or chills. HEENT: Denies blurred vision, vision changes, or eye pain. Denies hemoptysis CARDIOVASCULAR: Denies chest pain. Denies orthopnea. Denies PND. Denies palpitations RESPIRATORY: Denies shortness of breath. GASTROINTESTINAL: Denies abdominal pain. Denies nausea or vomiting. HEMATOLOGIC: Denies bleeding disorders. GENITOURINARY: Denies any blood in urine. SKIN: Denies pruitis. Denies rash. PHYSICAL EXAM: VITAL SIGNS: Reviewed. GENERAL: Well-developed in no acute distress. HEENT: Head is normocephalic. Pupils are equal, round. Sclerae anicteric. Mucous membranes of the mouth are moist. Neck supple. No JVD or thyromegaly LUNGS: Respirations even and unlabored. Lungs diminished bilaterally. HEART: Regular rate and rhythm. S1 and S2 heard. Systolic murmur noted. ABDOMEN: Soft. Nondistended. Nontender. EXTREMITIES: Normal range of motion. No clubbing or cyanosis. Peripheral pulses intact. 2-3+ bilateral lower extremity edema with a dressing noted to right lower extremity. Extremities cool to touch. NEUROLOGIC: Awake and alert. Oriented x 3. ASSESSMENT: Acute exacerbation of chronic systolic heart failure, ejection fraction 20% Coronary artery disease with previous CABG Paroxysmal atrial fibrillation, on anticoagulation with Eliquis Ischemic myopathy with previous AICD Acute kidney injury Hypertension Hyperlipidemia Morbid obesity: BMI 51.4 PLAN: Continue current cardiac medications Increase lasix to 80mg IV BID Add Zaroxolyn 5 mg daily 3 days Monitor kidney function Accurate I&O Daily weights Resume Entresto when AMALIA improves and blood pressure able to tolerate Further recommendations pending patient course Nurse practitioner note has been reviewed by physician. Signing provider agrees with the documented findings, assessment, and plan of care. Past Medical History Past Medical History: Atrial Fibrillation, Heart Failure, Hyperlipidemia, Osteoarthritis (OA), Prostate Disorder, Sleep Apnea/CPAP/BIPAP, Thyroid Disorder Additional Past Medical History / Comment(s): uses oxygen @2l PRN, KATHRINE not using C PAP at home currently, occ lower leg edema. History of Any Multi-Drug Resistant Organisms: None Reported Past Surgical History: Adenoidectomy, Coronary Bypass/CABG, Heart Catheterization, Tonsillectomy Additional Past Surgical History / Comment(s): parathyroidectomy, cataract surg., cardiac cath. 10-16-15, AICD/Pacer Past Anesthesia/Blood Transfusion Reactions: No Reported Reaction Type of Cardiac Device: Permanent Pacemaker, AICD Device Placement Date:: 05/2018 Past Psychological History: No Psychological Hx Reported Additional Psychological History / Comment(s): Pt lives at home with granddaughter. He uses walker at home. Smoking Status: Never smoker Past Alcohol Use History: None Reported Additional Past Alcohol Use History / Comment(s): used to smoke a pipe, quit 40 yrs. ago Past Drug Use History: None Reported - Past Family History Father Family Medical History: Cancer Additional Family Medical History / Comment(s): Father had prostate cancer with mets to the bone. He at age 76 yrs. Medications and Allergies Home Medications Medication Instructions Recorded Confirmed Type Multivitamin [Men's Multi-Vitamin] 1 tab PO DAILY 07/18/15 12/10/20 History Spironolactone [Aldactone] 25 mg PO DAILY 07/18/15 12/10/20 History Sacubitril/Valsartan [Entresto 24 1 tab PO BID 04/27/18 12/10/20 History mg-26 mg Tablet] Apixaban [Eliquis] 5 mg PO BID 07/06/18 12/10/20 History Benzonatate [Tessalon Perles] 100 mg PO TID PRN 07/06/18 12/10/20 History carvediloL [Coreg*] 12.5 mg PO BID 07/06/18 12/10/20 History Aspirin EC [Ecotrin Low Dose] 81 mg PO BID 09/14/20 12/10/20 History Nystatin [Nystop] 1 applic TOPICAL BID 09/14/20 12/10/20 History Sildenafil [Revatio] 20 mg PO DAILY PRN 09/14/20 12/10/20 History Ascorbic Acid [Vitamin C] 500 mg PO BID 12/10/20 12/10/20 History Atorvastatin [Lipitor] 10 mg PO HS 12/10/20 12/10/20 History Docusate [Colace] 200 mg PO BID 12/10/20 12/10/20 History Furosemide [Lasix] 80 mg PO BID@1200,2100 12/10/20 12/10/20 History Nitroglycerin Sl Tabs [Nitrostat] 0.4 mg SUBLINGUAL Q5M PRN 12/10/20 12/10/20 History Ondansetron Odt [Zofran Odt] 8 mg PO BID@0900,1300 12/10/20 12/10/20 History Pantoprazole Sodium [Protonix] 40 mg PO BID@0900,1300 12/10/20 12/10/20 History Polyethylene Glycol 3350 [Miralax] 34 gm PO DAILY 12/10/20 12/10/20 History Potassium Chloride [Klor-Con 20] 20 meq PO DAILY 12/10/20 12/10/20 History Sucralfate 1 gm PO ACHS PRN 12/10/20 12/10/20 History metOLazone [Zaroxolyn] 2.5 mg PO MOFR 12/10/20 12/10/20 History Allergies Allergy/AdvReac Type Severity Reaction Status Date / Time No Known Allergies Allergy Verified 12/10/20 15:35 Physical Exam Vitals: Vital Signs Temp Pulse Resp BP Pulse Ox 12/12/20 07:00 97.4 F L 107 H 18 101/69 97 12/12/20 01:44 68 18 12/12/20 01:43 98.1 F 68 89/61 93 L 12/11/20 20:10 97.3 F L 72 102/80 98 12/11/20 14:37 97.4 F L 72 18 119/75 93 L Intake and Output 12/11/20 12/12/20 12/12/20 22:59 06:59 14:59 Intake Total 590 Output Total 375 250 200 Balance 215 -250 -200 Intake: Oral 590 Output: Urine 375 250 200 Other: Voiding Method Urinal Urinal Urinal # Voids 2 2 Weight 167.1 kg Results 12/10/20 14:37 12/11/20 05:16 Current Medications Generic Name Dose Route Start Last Admin Trade Name Freq PRN Reason Stop Dose Admin Apixaban 5 mg 12/10/20 21:00 12/12/20 08:34 Apixaban 5 Mg Tab PO 5 mg BID MIQUEL Administration Ascorbic Acid 500 mg 12/10/20 21:00 12/12/20 08:34 Ascorbic Acid 500 Mg Tab PO 500 mg BID MIQUEL Administration Aspirin 81 mg 12/10/20 21:00 12/12/20 08:34 Aspirin 81 Mg PO 81 mg BID MIQUEL Administration Atorvastatin Calcium 10 mg 12/10/20 21:00 12/11/20 20:18 Atorvastatin 10 Mg Tab PO 10 mg HS MIQUEL Administration Benzonatate 100 mg 12/10/20 19:28 Benzonatate 100 Mg Cap PO TID PRN Cough Carvedilol 12.5 mg 12/10/20 20:00 12/12/20 08:34 Carvedilol 12.5 Mg Tab PO 12.5 mg BID-W/MEALS MIQUEL Administration Furosemide 80 mg 12/12/20 09:00 12/12/20 09:11 Furosemide 10 Mg/Ml 10 Ml Vial IV 80 mg Q12HR [facility]QUEL Administration Metolazone 5 mg 12/12/20 09:00 12/12/20 09:10 Metolazone 5 Mg Tab PO 12/15/20 09:01 5 mg DAILY MIQUEL Administration Multivitamins 1 each 12/11/20 09:00 12/12/20 08:34 Multivitamins, Thera 1 Each Tab PO 1 each DAILY [facility] Administration Nitroglycerin 0.4 mg 12/10/20 19:28 Nitroglycerin Sl Tabs 0.4 Mg Tab SUBLINGUAL Q5M PRN Chest Pain Nystatin 1 applic 12/10/20 21:00 12/12/20 08:34 Nystatin 100,000 Unit/Gm Powd 15 Gm TOPICAL 1 applic BID [facility] Administration Pantoprazole Sodium 40 mg 12/11/20 09:00 12/12/20 08:34 Pantoprazole 40 Mg Tablet PO 40 mg BID@0900,1300 [facility] Administration Polyethylene Glycol 34 gm 12/11/20 09:00 12/12/20 08:33 Polyethylene Glycol 3350 17 Gm Powd.Pack PO 34 gm DAILY [facility] Administration Potassium Chloride 20 meq 12/11/20 09:00 12/12/20 08:34 Potassium Chloride Er 20 Meq Tab.Er PO 20 meq DAILY [facility] Administration Spironolactone 25 mg 12/11/20 09:00 12/12/20 08:34 Spironolactone 25 Mg Tab PO 25 mg DAILY [facility] Administration Intake and Output 12/11/20 12/12/20 12/12/20 22:59 06:59 14:59 Intake Total 590 Output Total 375 250 200 Balance 215 -250 -200 Intake: Oral 590 Output: Urine 375 250 200 Other: Voiding Method Urinal Urinal Urinal # Voids 2 2 Weight 167.1 kg Patient Weight 12/13/20 06:59 Weight 167.1 kg 12/10/20 14:37 12/11/20 05:16
[2020-12-12] MEDS: ONDANSETRON 4 MG TAB PO PRN (12:13)
--- NOTE | 2020-12-12 14:05 | US ---
EXAMINATION TYPE: US kidneys/renal and bladder DATE OF EXAM: 12/12/2020 COMPARISON: NONE CLINICAL HISTORY: rf. EXAM MEASUREMENTS: Right Kidney: 10.6 x 5.0 x 5.1 cm Left Kidney: 11.5 x 6.3 x 5.5 cm Morbidly obese patient, technically difficult study, somewhat limited study. Right Kidney: No hydronephrosis or masses seen, inferior pole obscured by overlying bowel gas Left Kidney: Obscured by overlying bowel gas Bladder: wnl IMPRESSION: Exam limited by patient's size. No evidence of renal mass or obstruction.
--- NOTE | 2020-12-12 14:35 | PN ---
PROGRESS NOTE Patient is seen for followup for acute kidney injury. He is currently being diuresed for volume overload. Serum creatinine was 1.75 on admission down to 1.69. Previous creatinine 1.03 on 09/18/2020. The patient has been voiding. No labs available from today. PHYSICAL EXAMINATION: Blood pressure is 101/69, heart rate 107 per minute. He is afebrile. EXAMINATION OF THE HEART: S1, S2. EXAMINATION OF THE LUNGS: Bilateral breath sounds are heard. No crackles or wheezing heard. Abdomen is morbidly obese. Examination of lower extremities shows edema which is chronic mostly and about 3+ edema. LABS: Labs show sodium 135, potassium 4.1, serum creatinine 1.69, BUN 56 from yesterday 12/11/2020. ASSESSMENT: 1. Acute kidney injury, mostly cardiorenal. Rule out obstructive uropathy. I will check an ultrasound of the kidneys, although patient states he has been voiding. He does have a history of benign prostatic hypertrophy. Postvoid residual was ordered yesterday. I am not sure if it was performed. 2. Volume overload, continue with the Lasix for now at the current dose. 3. Severe cardiomyopathy, ejection fraction less than 20%, maintained on Entresto as outpatient. PLAN: Continue to diurese the patient. Lasix is currently at 80 mg q.12 hours. The patient received Lasix drip for about 10 hours. Monitor renal function closely and repeat labs in a.m. MMODL / IJN: [id number] /
--- NOTE | 2020-12-12 15:02 | P.PN ---
Progress Note - Text Progress Note Date: 12/12/20 Chief Complaint: Short of breath History of presenting complaint: This is a 75-year-old patient of Dr. Romero Jacobs. Follows with voltage inspector Dr. Clements. Chronic stable medical conditions include atrial fibrillation, osteoarthritis, hyperlipidemia, prostate disorder, obstructive sleep apnea does not use CPAP, hypothyroid, coronary artery disease with bypass. Does have a walker at home. Patient now presents with progressive increasing weight, lower extremity edema starting of blisters on the legs, short of breath. Orthopnea. Patient does sleep sitting up. Appetite is fair. No change in bowel pattern. No fever no chills. Admitted with acute congestive heart exacerbation and acute kidney injury felt to be cardio withdrawal syndrome. Patient was started on IV Lasix drip. Today: Sitting of the edge of the bed. Seen by cardiology today. As of IV Lasix bolus increased to 80 mg twice daily. Fluid restriction persists. Some shortness of breath. Edema present. Review of systems: Was done for constitutional, cardiovascular, GI, pulmonary. r elevant finding as above Active Medications Apixaban (Apixaban 5 Mg Tab) 5 mg PO BID [facility] Last Admin: 12/12/20 08:34 Dose: 5 mg Documented by: Ascorbic Acid (Ascorbic Acid 500 Mg Tab) 500 mg PO BID [facility] Last Admin: 12/12/20 08:34 Dose: 500 mg Documented by: Aspirin (Aspirin 81 Mg) 81 mg PO BID [facility] Last Admin: 12/12/20 08:34 Dose: 81 mg Documented by: Atorvastatin Calcium (Atorvastatin 10 Mg Tab) 10 mg PO HS [facility] Last Admin: 12/11/20 20:18 Dose: 10 mg Documented by: Benzonatate (Benzonatate 100 Mg Cap) 100 mg PO TID PRN PRN Reason: Cough Carvedilol (Carvedilol 12.5 Mg Tab) 12.5 mg PO BID-W/MEALS [facility] Last Admin: 12/12/20 08:34 Dose: 12.5 mg Documented by: Furosemide (Furosemide 10 Mg/Ml 10 Ml Vial) 80 mg IV Q12HR [facility] Last Admin: 12/12/20 09:11 Dose: 80 mg Documented by: Metolazone (Metolazone 5 Mg Tab) 5 mg PO DAILY [facility] Stop: 12/15/20 09:01 Last Admin: 12/12/20 09:10 Dose: 5 mg Documented by: Multivitamins (Multivitamins, Thera 1 Each Tab) 1 each PO DAILY [facility] Last Admin: 12/12/20 08:34 Dose: 1 each Documented by: Nitroglycerin (Nitroglycerin Sl Tabs 0.4 Mg Tab) 0.4 mg SUBLINGUAL Q5M PRN PRN Reason: Chest Pain Nystatin (Nystatin 100,000 Unit/Gm Powd 15 Gm) 1 applic TOPICAL BID [facility] Last Admin: 12/12/20 08:34 Dose: 1 applic Documented by: Ondansetron HCl (Ondansetron 4 Mg Tab) 4 mg PO Q8HR PRN PRN Reason: Nausea And Vomiting Last Admin: 12/12/20 12:13 Dose: 4 mg Documented by: Pantoprazole Sodium (Pantoprazole 40 Mg Tablet) 40 mg PO BID@0900,1300 [facility] Last Admin: 12/12/20 08:34 Dose: 40 mg Documented by: Polyethylene Glycol (Polyethylene Glycol 3350 17 Gm Powd.Pack) 34 gm PO DAILY [facility] Last Admin: 12/12/20 08:33 Dose: 34 gm Documented by: Potassium Chloride (Potassium Chloride Er 20 Meq Tab.Er) 20 meq PO DAILY [facility] Last Admin: 12/12/20 08:34 Dose: 20 meq Documented by: Spironolactone (Spironolactone 25 Mg Tab) 25 mg PO DAILY [facility] Last Admin: 12/12/20 08:34 Dose: 25 mg Documented by: Past medical history to include: Atrial fibrillation, CHF, hyperlipidemia, osteoarthritis, prostate disorder, obstructive sleep apnea does not use CPAP, home oxygen 2 L when necessary, coron kaci artery disease with bypass, thyroidectomy, permanent pacemaker with AICD Social history: Lives with his granddaughter. Does use a walker/cane. Patient quit daily using a pipe 40 years ago. No alcohol. Physical examination: VITAL SIGNS: 97.4, 107, 18, 10 1 x 69, 97% room air GENERAL: sitting of the edge of the bed, some shortness of breath EYES: Pupils equal. Conjunctiva normal. NECK: JVD unable to assess; masses not palpable. HEART: Distant heart sounds; significant edema. LUNGS: Respiratory rate increased; decreased breath sounds ABDOMEN: Soft, nontender, liver spleen not palpable, no masses palpable. DERMATOLOGICAL: Redness skin both the groin folds PSYCH: Alert and oriented x3; mood and affect normal. MUSCULAR skeletal: Evidence of OA INVESTIGATIONS, reviewed in the clinical context: 2-D echocardiogram: Moderate LVH. Mild to moderate MR. EF less than 20%. December 11: Potassium 4.1 bun 56 creatinine 1.69 WBC 6.3 hemoglobin 14.3 platelets 114 potassium 4.4 bun 54 creatinine 1.75 ProBNP 7650 Coronavirus [PCR]-not detected EKG tracing personally reviewed by me-normal sinus rhythm, right bundle-branch block Chest x-ray film personally reviewed by me-pulmonary edema, pacemaker Previous labs: 09/18/2020: BUN 35 creatinine 1.03 Assessment and plan: -Acute on chronic congestive heart failure exacerbation, from systolic dysfunction. EF less than 20%-slow to respond Lasix drip 10 mg an hour.-Changed over to IV Lasix push 40 mg daily-increased to 80 mg twice daily. Strict I's and O's. Fluid restriction. -Acute kidney injury likely prerenal from cardiorenal syndrome-slow to respond Follow electrolytes -Paroxysmal atrial fibrillation, currently in sinus rhythm on eliquis -Intertriginous ezra infection of bilateral groin Topical nystatin powder -AICD -Hyperlipidemia- Continue Lipitor -Chronic insomnia -, multifactorial continued use melatonin -Primary osteoarthritis, use Tylenol when necessary -BPH -Obstructive sleep apnea patient does not use CPAP -Morbid obesity BMI 50.9. Weight loss measures and follow-up with dietitian and PCP -Coronary artery disease with a history of coronary bypass Continue with aspirin, beta fior -GERD continue omeprazole Discussed with the patient. Repeat labs in the morning. Strict I's and O's.
[2020-12-12 17:47] LABS: African American GFR (CKD) 48 (>60 ml/min/1.73 sqM); Anion Gap 9 mmol/L; Blood Urea Nitrogen 58 mg/dL (9-20); Calcium 9.7 mg/dL (8.4-10.2); Carbon Dioxide 29 mmol/L (22-30); Chloride 99 mmol/L (98-107); Glucose 146 mg/dL (74-99); Non-African American GFR(CKD) 41 (>60 ml/min/1.73 sqM); Potassium 4.8 mmol/L (3.5-5.1); Sodium 137 mmol/L (137-145)
[2020-12-12] MEDS: ATORVASTATIN 10 MG TAB PO SCH (21:44)
[2020-12-13 06:45] LABS: African American GFR (CKD) 45 (>60 ml/min/1.73 sqM); Anion Gap 8 mmol/L; Blood Urea Nitrogen 63 mg/dL (9-20); Calcium 9.6 mg/dL (8.4-10.2); Carbon Dioxide 31 mmol/L (22-30); Chloride 98 mmol/L (98-107); Glucose 117 mg/dL (74-99); Non-African American GFR(CKD) 39 (>60 ml/min/1.73 sqM); Sodium 137 mmol/L (137-145)
[2020-12-13] MEDS: polyethylene glycoL 3350 17 GM POWD.PACK PO SCH (07:39)
[2020-12-13] MEDS: ASPIRIN 81 MG PO SCH ×2 (07:39→20:40)
[2020-12-13] MEDS: FUROSEMIDE 10 MG/ML 10 ML VIAL IV SCH ×2 (07:40→20:58)
[2020-12-13] MEDS: MULTIVITAMINS, THERA 1 EACH TAB PO SCH (07:40)
[2020-12-13] MEDS: APIXABAN 5 MG TAB PO SCH ×2 (07:40→20:40)
[2020-12-13] MEDS: POTASSIUM CHLORIDE ER 20 MEQ TAB.ER PO SCH (07:40)
[2020-12-13] MEDS: carvediloL 12.5 MG TAB PO SCH ×2 (07:40→17:59)
[2020-12-13] MEDS: PANTOPRAZOLE 40 MG TABLET PO SCH ×2 (07:40→15:07)
[2020-12-13] MEDS: SPIRONOLACTONE 25 MG TAB PO SCH (07:40)
[2020-12-13] MEDS: ASCORBIC ACID 500 MG TAB PO SCH ×2 (07:40→20:40)
[2020-12-13] MEDS: metOLazone 5 MG TAB PO SCH (07:40)
[2020-12-13] MEDS: NYSTATIN 100,000 UNIT/GM POWD 15 GM TOPICAL SCH ×2 (07:42→21:33)
[2020-12-13] MEDS: ONDANSETRON 4 MG TAB PO PRN ×2 (09:19→17:59)
--- NOTE | 2020-12-13 09:24 | P.PN ---
Subjective Patient is seen in follow-up for acute kidney injury. Renal function is stable. Maintained on IV Lasix. Good urine output. Denies chest pain or shortness of breath. Currently on room air. Vital signs are stable. General: The patient appeared well nourished and normally developed. HEENT: Head exam is unremarkable. LUNGS: Breath sounds decreased. HEART: Rate and Rhythm are regular. ABDOMEN: Obese. EXTREMITITES: 2+ edema. Objective - Vital Signs Vital signs: Vital Signs Temp 97.6 F 12/13/20 07:00 Pulse 103 H 12/13/20 08:00 Resp 20 12/13/20 08:00 BP 101/71 12/13/20 07:00 Pulse Ox 94 L 12/13/20 07:00 Intake & Output 12/12/20 12/13/20 12/13/20 18:59 06:59 18:59 Intake Total 422 60 Output Total 700 1650 175 Balance -278 -1650 -115 Weight 167.1 kg Intake: Oral 422 60 Output: Urine 700 1650 175 Other: Voiding Method Urinal Urinal # Voids 2 - Labs CBC & Chem 7: 12/10/20 14:37 12/13/20 05:42 Labs: Abnormal Lab Results - Last 24 Hours (Table) 12/12/20 12/13/20 Range/Units 13:40 05:42 Carbon Dioxide 31 H (22-30) mmol/L BUN 58 H 63 H (9-20) mg/dL Creatinine 1.63 H 1.72 H (0.66-1.25) mg/dL Glucose 146 H 117 H (74-99) mg/dL Assessment and Plan Plan: Assessment: 1. Acute kidney injury secondary to ATN secondary to cardiorenal syndrome. Creatinine stable at 1.72 today. No hydronephrosis noted on kidney ultrasound. UA fairly benign. 2. Acute on chronic systolic CHF with ejection fraction of less than 20% with mild to moderate mitral regurgitation. 3. Volume overload. 4. Morbid obesity. Plan: Maintain IV Lasix. Maintain low salt diet and fluid restriction. Continue to monitor renal function and urine output.
--- NOTE | 2020-12-13 14:29 | P.PN ---
Progress Note - Text Progress Note Date: 12/13/20 Chief Complaint: Short of breath History of presenting complaint: This is a 75-year-old patient of Dr. Romero Jacobs. Follows with public relations Dr. Clements. Chronic stable medical conditions include atrial fibrillation, osteoarthritis, hyperlipidemia, prostate disorder, obstructive sleep apnea does not use CPAP, hypothyroid, coronary artery disease with bypass. Does have a walker at home. Patient now presents with progressive increasing weight, lower extremity edema starting of blisters on the legs, short of breath. Orthopnea. Patient does sleep sitting up. Appetite is fair. No change in bowel pattern. No fever no chills. Admitted with acute congestive heart exacerbation and acute kidney injury felt to be cardio withdrawal syndrome. Patient was started on IV Lasix drip. Today: Remains and IV Lasix bolus 80 mg twice daily. Making good urine. Some shortness of breath. Oral intake fair. Edema present. Fluid restriction. About 2 L in negative fluid balance Review of systems: Was done for constitutional, cardiovascular, GI, pulmonary. r elevant finding as above Active Medications Apixaban (Apixaban 5 Mg Tab) 5 mg PO BID [facility] Last Admin: 12/13/20 07:40 Dose: 5 mg Documented by: Ascorbic Acid (Ascorbic Acid 500 Mg Tab) 500 mg PO BID [facility] Last Admin: 12/13/20 07:40 Dose: 500 mg Documented by: Aspirin (Aspirin 81 Mg) 81 mg PO BID [facility] Last Admin: 12/13/20 07:39 Dose: 81 mg Documented by: Atorvastatin Calcium (Atorvastatin 10 Mg Tab) 10 mg PO HS [facility] Last Admin: 12/12/20 21:44 Dose: 10 mg Documented by: Benzonatate (Benzonatate 100 Mg Cap) 100 mg PO TID PRN PRN Reason: Cough Carvedilol (Carvedilol 12.5 Mg Tab) 12.5 mg PO BID-W/MEALS [facility] Last Admin: 12/13/20 07:40 Dose: 12.5 mg Documented by: Furosemide (Furosemide 10 Mg/Ml 10 Ml Vial) 80 mg IV Q12HR [facility] Last Admin: 12/13/20 07:40 Dose: 80 mg Documented by: Metolazone (Metolazone 5 Mg Tab) 5 mg PO DAILY [facility] Stop: 12/15/20 09:01 Last Admin: 12/13/20 07:40 Dose: 5 mg Documented by: Multivitamins (Multivitamins, Thera 1 Each Tab) 1 each PO DAILY [facility] Last Admin: 12/13/20 07:40 Dose: 1 each Documented by: Nitroglycerin (Nitroglycerin Sl Tabs 0.4 Mg Tab) 0.4 mg SUBLINGUAL Q5M PRN PRN Reason: Chest Pain Nystatin (Nystatin 100,000 Unit/Gm Powd 15 Gm) 1 applic TOPICAL BID [facility] Last Admin: 12/13/20 07:42 Dose: 1 applic Documented by: Ondansetron HCl (Ondansetron 4 Mg Tab) 4 mg PO Q8HR PRN PRN Reason: Nausea And Vomiting Last Admin: 12/13/20 09:19 Dose: 4 mg Documented by: Pantoprazole Sodium (Pantoprazole 40 Mg Tablet) 40 mg PO BID@0900,1300 [facility] Last Admin: 12/13/20 07:40 Dose: 40 mg Documented by: Polyethylene Glycol (Polyethylene Glycol 3350 17 Gm Powd.Pack) 34 gm PO DAILY [facility] Last Admin: 12/13/20 07:39 Dose: 34 gm Documented by: Potassium Chloride (Potassium Chloride Er 20 Meq Tab.Er) 20 meq PO DAILY [facility] Last Admin: 12/13/20 07:40 Dose: 20 meq Documented by: Spironolactone (Spironolactone 25 Mg Tab) 25 mg PO DAILY [facility] Last Admin: 12/13/20 07:40 Dose: 25 mg Documented by: Past medical history to include: Atrial fibrillation, CHF, hyperlipidemia, osteoarthritis, prostate disorder, obstructive sleep apnea does not use CPAP, home oxygen 2 L when necessary, kimi nary artery disease with bypass, thyroidectomy, permanent pacemaker with AICD Social history: Lives with his granddaughter. Does use a walker/cane. Patient quit daily using a pipe 40 years ago. No alcohol. Physical examination: VITAL SIGNS: 97.6, 103, 20, 101/71, 94% room air GENERAL: Laying in bed, some shortness of breath EYES: Pupils equal. Conjunctiva normal. NECK: JVD unable to assess; masses not palpable. HEART: Distant heart sounds; significant edema. LUNGS: Respiratory rate increased; decreased breath sounds ABDOMEN: Soft, nontender, liver spleen not palpable, no masses palpable. DERMATOLOGICAL: Redness skin both the groin folds PSYCH: Alert and oriented x3; mood and affect normal. MUSCULAR skeletal: Evidence of OA INVESTIGATIONS, reviewed in the clinical context: December aids: Potassium 4 bun 63 creatinine 1.7 to 2-D echocardiogram: Moderate LVH. Mild to moderate MR. EF less than 20%. December 11: Potassium 4.1 bun 56 creatinine 1.69 WBC 6.3 hemoglobin 14.3 platelets 114 potassium 4.4 bun 54 creatinine 1.75 ProBNP 7650 Coronavirus [PCR]-not detected EKG tracing personally reviewed by me-normal sinus rhythm, right bundle-branch block Chest x-ray film personally reviewed by me-pulmonary edema, pacemaker Previous labs: 09/18/2020: BUN 35 creatinine 1.03 Assessment and plan: -Acute on chronic congestive heart failure exacerbation, from systolic dysfunction. EF less than 20%-slow to respond Lasix drip 10 mg an hour.-Changed to IV Lasix push 40 mg daily-increased to 80 mg twice daily. Strict I's and O's. Fluid restriction. About 2 L in negative fluid balance -Acute kidney injury likely prerenal from cardiorenal syndrome-slow to respond Follow electrolytes -Paroxysmal atrial fibrillation, currently in sinus rhythm on eliquis -Intertriginous ezra infection of bilateral groin Topical nystatin powder -AICD -Hyperlipidemia- Continue Lipitor -Chronic insomnia -, multifactorial continued use melatonin -Primary osteoarthritis, use Tylenol when necessary -BPH -Obstructive sleep apnea patient does not use CPAP -Morbid obesity BMI 50.9. Weight loss measures and follow-up with dietitian and PCP -Coronary artery disease with a history of coronary bypass Continue with aspirin, beta fior -GERD continue omeprazole Continue IV Lasix fluid restriction. We will use Lisandro wraps on both the legs during the daytime. Follow labs. Discussed with the patient.
--- NOTE | 2020-12-13 16:36 | PN ---
PROGRESS NOTE Mr. Pierson is a gentleman with history of obesity, hypertension, hyperlipidemia, previous bypass surgery, and also chronic lower extremity edema. He presented with acute kidney injury. He is being diuresed, managed by Nephrology. Denies any chest discomfort. His weight is about the same but edema seems to have shown modest improvement and his creatinine is about 1.7. Plan today is to continue current medical regimen. From a cardiac standpoint, he is on IV Lasix. We will hopefully switch this to oral Lasix when okayed by Nephrology. He is currently taking Lasix 80 mg q.12 hours, Aldactone and also metolazone. Urine output has been good. Vitals are stable. Blood pressure is about 108/70, pulse rate is about 80 per minute and regular. HEENT unremarkable. Fundus was not examined by me. Neck is supple. Cannot appreciate JVD. Neck is short and thick. Heart exam reveals S1, S2 with a short systolic murmur. Distant heart sounds. Patient has an underlying ICD. Lungs are clear. Abdomen is distended, nontender. Lower extremities reveal chronic edema with pigmentation, diminished pulses. Central nervous system grossly no focal deficits. IMPRESSION: 1. History of ischemic cardiomyopathy with a prior bypass surgery. 2. Obesity. 3. Hypertension. 4. History of chronic kidney disease. RECOMMENDATIONS: I am recommending that we will continue current diuretics and further management from a diuretic standpoint will be per Nephrology. We will continue to see the patient as needed. The patient can be discharged home in the next 24 to 48 hours. MMODL / IJN: [id number] /
[2020-12-13] MEDS: ATORVASTATIN 10 MG TAB PO SCH (20:40)
[2020-12-14] MEDS: ONDANSETRON 4 MG TAB PO PRN ×2 (06:01→17:04)
[2020-12-14] MEDS: polyethylene glycoL 3350 17 GM POWD.PACK PO SCH (08:00)
[2020-12-14] MEDS: SPIRONOLACTONE 25 MG TAB PO SCH (08:01)
[2020-12-14] MEDS: carvediloL 12.5 MG TAB PO SCH ×2 (08:01→17:02)
[2020-12-14] MEDS: APIXABAN 5 MG TAB PO SCH ×2 (08:01→21:23)
[2020-12-14] MEDS: ASCORBIC ACID 500 MG TAB PO SCH ×2 (08:01→21:23)
[2020-12-14] MEDS: ASPIRIN 81 MG PO SCH ×2 (08:01→21:23)
[2020-12-14] MEDS: PANTOPRAZOLE 40 MG TABLET PO SCH ×2 (08:01→12:14)
[2020-12-14] MEDS: POTASSIUM CHLORIDE ER 20 MEQ TAB.ER PO SCH (08:01)
[2020-12-14] MEDS: metOLazone 5 MG TAB PO SCH (08:01)
[2020-12-14] MEDS: NYSTATIN 100,000 UNIT/GM POWD 15 GM TOPICAL SCH ×2 (08:01→23:38)
[2020-12-14] MEDS: FUROSEMIDE 10 MG/ML 10 ML VIAL IV SCH (08:01)
[2020-12-14] MEDS: MULTIVITAMINS, THERA 1 EACH TAB PO SCH (08:01)
--- NOTE | 2020-12-14 09:06 | P.PN ---
Subjective Patient is seen in follow-up for acute kidney injury. Renal function stable as of yesterday. Maintained on IV Lasix. Good urine output. Denies chest pain or shortness of breath. Currently on room air. Edema better. Vital signs are stable. General: The patient appeared well nourished and normally developed. HEENT: Head exam is unremarkable. LUNGS: Breath sounds decreased. HEART: Rate and Rhythm are regular. ABDOMEN: Obese. EXTREMITITES: 1+ edema. Lower extremities wrapped. Objective - Vital Signs Vital signs: Vital Signs Temp 97.3 F L 12/14/20 07:00 Pulse 103 H 12/14/20 07:00 Resp 19 12/14/20 07:00 BP 99/71 12/14/20 07:00 Pulse Ox 94 L 12/14/20 07:00 Intake & Output 12/13/20 12/14/20 12/14/20 18:59 06:59 18:59 Intake Total 300 180 Output Total 1245 750 Balance -945 -750 180 Weight 166.4 kg 166.6 kg Intake: Oral 300 180 Output: Urine 1245 750 Other: Voiding Method Urinal Urinal # Voids 4 - Labs CBC & Chem 7: 12/10/20 14:37 12/13/20 05:42 Assessment and Plan Plan: Assessment: 1. Acute kidney injury secondary to ATN secondary to cardiorenal syndrome. Creatinine stable at 1.72 as of yesterday. No hydronephrosis noted on kidney ultrasound. UA fairly benign. 2. Acute on chronic systolic CHF with ejection fraction of less than 20% with mild to moderate mitral regurgitation. 3. Volume overload. Improving with diuresis. 4. Morbid obesity. Plan: Maintain IV Lasix - changed to 80 mg orally twice daily upon discharge. Maintain low salt diet and fluid restriction. Continue to monitor renal function and urine output. Anticipate discharge soon. Repeat BMP and magnesium level 2-3 days postdischarge. Follow up outpatient in 1 week. Case was discussed with cardiology. Morning labs pending.
[2020-12-14 09:40] LABS: African American GFR (CKD) 35.1 (60.0-200.0); Anion Gap 11.3 mmol/L (4.00-12.00); BUN/Creat Ratio 31.9 Ratio (12.00-20.00); Calcium 9.6 mg/dL (8.7-10.3); Carbon Dioxide 29.7 mmol/L (21.6-31.8); Magnesium 2.2 mg/dL (1.5-2.4); Non-African American GFR(CKD) 30.3 (60.0-200.0)
[2020-12-14] MEDS: FUROSEMIDE 80 MG TAB PO SCH (17:02)
--- NOTE | 2020-12-14 19:58 | P.PN ---
Progress Note - Text Progress Note Date: 12/14/20 Chief Complaint: Short of breath History of presenting complaint: This is a 75-year-old patient of Dr. Romero Jacobs. Follows with continuous pickling line pickler helper Dr. Clements. Chronic stable medical conditions include atrial fibrillation, osteoarthritis, hyperlipidemia, prostate disorder, obstructive sleep apnea does not use CPAP, hypothyroid, coronary artery disease with bypass. Does have a walker at home. Patient now presents with progressive increasing weight, lower extremity edema starting of blisters on the legs, short of breath. Orthopnea. Patient does sleep sitting up. Appetite is fair. No change in bowel pattern. No fever no chills. Admitted with acute congestive heart exacerbation and acute kidney injury felt to be cardio-renal syndrome. Patient was started on IV Lasix drip. Today: Breathing better. Lisandro wrap lower extremity. Changed over to by mouth Lasix today. Oral intake good. Review of systems: Was done for constitutional, cardiovascular, GI, pulmonary. relevant finding as above Active Medications Apixaban (Apixaban 5 Mg Tab) 5 mg PO BID [facility] Last Admin: 12/14/20 08:01 Dose: 5 mg Documented by: Ascorbic Acid (Ascorbic Acid 500 Mg Tab) 500 mg PO BID [facility] Last Admin: 12/14/20 08:01 Dose: 500 mg Documented by: Aspirin (Aspirin 81 Mg) 81 mg PO BID [facility] Last Admin: 12/14/20 08:01 Dose: 81 mg Documented by: Atorvastatin Calcium (Atorvastatin 10 Mg Tab) 10 mg PO HS [facility] Last Admin: 12/13/20 20:40 Dose: 10 mg Documented by: Benzonatate (Benzonatate 100 Mg Cap) 100 mg PO TID PRN PRN Reason: Cough Carvedilol (Carvedilol 12.5 Mg Tab) 12.5 mg PO BID-W/MEALS [facility] Last Admin: 12/14/20 17:02 Dose: 12.5 mg Documented by: Furosemide (Furosemide 80 Mg Tab) 80 mg PO BID@0900,1600 [facility] Last Admin: 12/14/20 17:02 Dose: 80 mg Documented by: Metolazone (Metolazone 5 Mg Tab) 5 mg PO DAILY [facility] Stop: 12/15/20 09:01 Last Admin: 12/14/20 08:01 Dose: 5 mg Documented by: Multivitamins (Multivitamins, Thera 1 Each Tab) 1 each PO DAILY [facility] Last Admin: 12/14/20 08:01 Dose: 1 each Documented by: Nitroglycerin (Nitroglycerin Sl Tabs 0.4 Mg Tab) 0.4 mg SUBLINGUAL Q5M PRN PRN Reason: Chest Pain Nystatin (Nystatin 100,000 Unit/Gm Powd 15 Gm) 1 applic TOPICAL BID [facility] Last Admin: 12/14/20 08:01 Dose: 1 applic Documented by: Ondansetron HCl (Ondansetron 4 Mg Tab) 4 mg PO Q8HR PRN PRN Reason: Nausea And Vomiting Last Admin: 12/14/20 17:04 Dose: 4 mg Documented by: Pantoprazole Sodium (Pantoprazole 40 Mg Tablet) 40 mg PO BID@0900,1300 [facility] Last Admin: 12/14/20 12:14 Dose: 40 mg Documented by: Polyethylene Glycol (Polyethylene Glycol 3350 17 Gm Powd.Pack) 34 gm PO DAILY S Last Admin: 12/14/20 08:00 Dose: 34 gm Documented by: Potassium Chloride (Potassium Chloride Er 20 Meq Tab.Er) 20 meq PO DAILY [facility] Last Admin: 12/14/20 08:01 Dose: 20 meq Documented by: Sacubitril/Valsartan (Sacubitril/Valsartan 24 Mg-26 Mg Tablet) 0.5 each PO BID [facility] Spironolactone (Spironolactone 25 Mg Tab) 25 mg PO DAILY [facility] Last Admin: 12/14/20 08:01 Dose: 25 mg Documented by: Past medical history to include: Atrial fibrillation, CHF, hyperlipidemia, osteoarthritis, prostate disorder, obstructive sleep apnea does not use CPAP, home oxygen 2 L when necessary, coronary artery disease with bypass, thyroidectomy, permanent pacemaker with AICD Social history: Lives with his granddaughter. Does use a walker/cane. Patient quit daily using a pipe 40 years ago. No alcohol. Physical examination: VITAL SIGNS: 97.3, 103, 19, 99/71, 94% room air GENERAL: Sitting at the edge of bed, breathing better EYES: Pupils equal. Conjunctiva normal. NECK: JVD unable to assess; masses not palpable. HEART: Distant heart sounds; edema present/Lisandro wrap. LUNGS: Respiratory rate increased; decreased breath sounds ABDOMEN: Soft, nontender, liver spleen not palpable, no masses palpable. DERMATOLOGICAL: Redness skin both the groin folds PSYCH: Alert and oriented x3; mood and affect normal. MUSCULAR skeletal: Evidence of OA INVESTIGATIONS, reviewed in the clinical context: December 14: Potassium 4 creatinine 2.16 December 13: Potassium 4 bun 63 creatinine 1.7 to 2-D echocardiogram: Moderate LVH. Mild to moderate MR. EF less than 20%. December 11: Potassium 4.1 bun 56 creatinine 1.69 WBC 6.3 hemoglobin 14.3 platelets 114 potassium 4.4 bun 54 creatinine 1.75 ProBNP 7650 Coronavirus [PCR]-not detected EKG tracing personally reviewed by me-normal sinus rhythm, right bundle-branch block Chest x-ray film personally reviewed by me-pulmonary edema, pacemaker Previous labs: 09/18/2020: BUN 35 creatinine 1.03 Assessment and plan: -Acute on chronic congestive heart failure exacerbation, from systolic dysfunction. EF less than 20%-improving Lasix drip 10 mg an hour.-Changed to IV Lasix push 40 mg daily-increased to IV 80 mg twice daily. Strict I's and O's. Fluid restriction. About 3.5 L in negative fluid balance. Lasix changed to by mouth today. -Acute kidney injury likely prerenal from cardiorenal syndrome-slow to respond Follow electrolytes -Paroxysmal atrial fibrillation, currently in sinus rhythm on eliquis -Intertriginous ezra infection of bilateral groin Topical nystatin powder -AICD -Hyperlipidemia- Continue Lipitor -Chronic insomnia -, multifactorial continued use melatonin -Primary osteoarthritis, use Tylenol when necessary -BPH -Obstructive sleep apnea patient does not use CPAP -Morbid obesity BMI 50.9. Weight loss measures and follow-up with dietitian and PCP -Coronary artery disease with a history of coronary bypass Continue with aspirin, beta fior -GERD continue omeprazole Changed to oral Lasix today. Repeat labs in the morning. Hopefully discharge tomorrow depending upon cardiology and nephrology assessment. Discussed with the patient.
[2020-12-14] MEDS: ATORVASTATIN 10 MG TAB PO SCH (21:23)
[2020-12-14 22:17] VITALS: TEMP 97.4
[2020-12-15 03:22] VITALS: RESP 20
[2020-12-15 06:00] LABS: African American GFR (CKD) 34 (>60 ml/min/1.73 sqM); Anion Gap 12 mmol/L; Blood Urea Nitrogen 74 mg/dL (9-20); Calcium 9.7 mg/dL (8.4-10.2); Carbon Dioxide 29 mmol/L (22-30); Chloride 95 mmol/L (98-107); Glucose 133 mg/dL (74-99); Magnesium 2.3 mg/dL (1.6-2.3); Non-African American GFR(CKD) 29 (>60 ml/min/1.73 sqM); Potassium 3.7 mmol/L (3.5-5.1); Sodium 136 mmol/L (137-145)
[2020-12-15] MEDS: PANTOPRAZOLE 40 MG TABLET PO SCH ×2 (07:27→12:28)
[2020-12-15] MEDS: POTASSIUM CHLORIDE ER 20 MEQ TAB.ER PO SCH (07:27)
[2020-12-15] MEDS: APIXABAN 5 MG TAB PO SCH (07:27)
[2020-12-15] MEDS: ONDANSETRON 4 MG TAB PO PRN (07:27)
[2020-12-15] MEDS: ASPIRIN 81 MG PO SCH (07:28)
[2020-12-15] MEDS: ASCORBIC ACID 500 MG TAB PO SCH (07:28)
[2020-12-15] MEDS: MULTIVITAMINS, THERA 1 EACH TAB PO SCH (07:28)
[2020-12-15] MEDS: polyethylene glycoL 3350 17 GM POWD.PACK PO SCH (07:29)
[2020-12-15] MEDS: NYSTATIN 100,000 UNIT/GM POWD 15 GM TOPICAL SCH (07:29)
[2020-12-15 08:00] VITALS: PULSE 70
[2020-12-15] MEDS ORDERED: SACUBITRIL/VALSARTAN 24 MG-26 MG TABLET PO SCH ×2 (09:00)
[2020-12-15] MEDS: metOLazone 5 MG TAB PO SCH (10:23)
[2020-12-15] MEDS: SPIRONOLACTONE 25 MG TAB PO SCH (10:28)
[2020-12-15] MEDS: FUROSEMIDE 80 MG TAB PO SCH ×2 (10:28→10:36)
--- NOTE | 2020-12-15 10:45 | P.PN ---
Subjective Patient is seen in follow-up for acute kidney injury. Renal function stable. Maintained on po Lasix. Good urine output. Denies chest pain or shortness of breath. Currently on room air. Edema better. No changes overnight. Vital signs are stable. General: The patient appeared well nourished and normally developed. HEENT: Head exam is unremarkable. LUNGS: Breath sounds decreased. HEART: Rate and Rhythm are regular. ABDOMEN: Obese. EXTREMITITES: 1+ edema. Lower extremities wrapped. Objective - Vital Signs Vital signs: Vital Signs Temp 97.4 F L 12/15/20 07:00 Pulse 70 12/15/20 08:00 Resp 20 12/15/20 08:00 BP 90/62 12/15/20 10:16 Pulse Ox 94 L 12/15/20 07:00 Intake & Output 12/14/20 12/15/20 12/15/20 18:59 06:59 18:59 Intake Total 180 Output Total 275 Balance 180 -275 Weight 167.3 kg Intake: Oral 180 Output: Urine 275 Other: Voiding Method Urinal Urinal Urinal - Labs CBC & Chem 7: 12/10/20 14:37 12/15/20 05:00 Labs: Abnormal Lab Results - Last 24 Hours (Table) 12/15/20 Range/Units 05:00 Sodium 136 L (137-145) mmol/L Chloride 95 L (98-107) mmol/L BUN 74 H (9-20) mg/dL Creatinine 2.16 H (0.66-1.25) mg/dL Glucose 133 H (74-99) mg/dL Assessment and Plan Plan: Assessment: 1. Acute kidney injury secondary to ATN secondary to cardiorenal syndrome. Creatinine stable at 2.16 today. No hydronephrosis noted on kidney ultrasound. UA fairly benign. 2. Acute on chronic systolic CHF with ejection fraction of less than 20% with mild to moderate mitral regurgitation. 3. Volume overload. Improving with diuresis. 4. Morbid obesity. Plan: Maintain oral Lasix. Maintain low salt diet and fluid restriction. Continue to monitor renal function and urine output. Anticipate discharge soon. Repeat BMP and magnesium level 2-[address] Follow up outpatient in 1 week. I advised patient to monitor his weight closely at home and to call if gains more than 3 pounds in 1 week duration.
[2020-12-15 12:11] VITALS: BP 84/69
[2020-12-15] MEDS: carvediloL 12.5 MG TAB PO SCH (13:48)
--- NOTE | 2020-12-15 21:48 | DS ---
DISCHARGE SUMMARY DATE OF SERVICE: 12/15/2020 FINAL DIAGNOSES: 1. Congestive heart failure, acute exacerbation, with acute on chronic systolic dysfunction, ejection fraction less than 20%. 2. Acute kidney injury, likely prerenal from cardiorenal syndrome. 3. Paroxysmal atrial fibrillation. 4. Intertriginous candidiasis. 5. Automated implantable cardioverter defibrillator. 6. Hyperlipidemia. 7. Chronic insomnia. 8. Primary degenerative joint disease. 9. Benign prostatic hypertrophy. 10.Morbid obesity. 11.Coronary artery disease, history of coronary artery bypass grafting. 12.Gastroesophageal reflux disease. DISCHARGE DISPOSITION: The patient will be discharged in stable condition with guarded prognosis. HISTORY OF PRESENT ILLNESS: This 75-year-old gentleman with a past medical history of multiple medical problems, as mentioned earlier, being followed by Dr. Romero Jacobs and Dr. Ortega in the outpatient setting, was admitted with CHF, acute exacerbation, and treated with diuretics and other medications. The patient improved significantly. Cardiology saw the patient and cleared the patient for discharge. Currently the creatinine is 2.16, sodium is 136. The patient will be discharged in stable condition with guarded prognosis On exam, vitals are stable. CARDIOVASCULAR SYSTEM: S1, S2 muffled. ABDOMEN: Soft. NERVOUS SYSTEM: No focal deficit. DISCHARGE ADVICE AND MEDICATIONS: 1. Cardiac diet. 2. Activity limited until followup. 3. Follow up with Dr. Romero Jacobs in 1-2 days with the labs. 4. Follow up with Dr. Ortega and Dr. Bernal as recommended. 5. Aldactone 25 mg p.o. daily. 6. Colace 200 mg p.o. b.i.d. 7. Coreg 12.5 mg b.i.d. 8. Ecotrin 81 mg daily. 9. Eliquis 2.5 mg p.o. b.i.d. 10.Entresto 24 + 26 one tablet p.o. b.i.d. 11.K-Dur 20 mEq p.o. daily. 12.Lasix mg p.o. b.i.d. 13.Lipitor 10 mg at bedtime. 14.Multivitamins 1 p.o. daily. 15.MiraLAX 34 grams p.o. daily. 16.Nitrostat p.r.n. 18.Protonix 40 mg b.i.d. 19.Revatio 20 mg p.o. daily. 20.Sucralfate p.r.n. 21.Tessalon p.r.n. 22.Vitamin C 500 mg p.o. b.i.d. 23.Zaroxolyn 2.5 mg Tuesday, Tuesday. 24.Zofran 8 mg p.o. b.i.d. Once again, the patient will be discharged in stable condition with guarded prognosis. At this time the creatinine is fluctuating, so the patient is recommended to hold Aldactone as well as potassium and check labs frequently with the primary physician and Nephrology. Hold Entresto. [id number] / IJN: [id number] / MTDD
== END 2020-12-15 14:31 | disposition home health service (06) | DRG 291 ==
LOC: EC 13:50 → 6NMEDSUR 16:32 → OBSVTOIN 21:36
PROVIDERS: ADMIT Hospitalist; ATTEND Hospitalist
DX: I13.0 Hypertensive heart and chronic kidney disease with heart failure and stage 1 through stage 4 chronic kidney disease, or unspecified chronic kidney disease (principal); I50.23 Acute on chronic systolic (congestive) heart failure; N17.0 Acute kidney failure with tubular necrosis; Z68.43 Body mass index [BMI] 50.0-59.9, adult; I48.0 Paroxysmal atrial fibrillation; E78.5 Hyperlipidemia, unspecified; I25.10 Atherosclerotic heart disease of native coronary artery without angina pectoris; B37.2 Candidiasis of skin and nail; E66.01 Morbid (severe) obesity due to excess calories; E89.2 Postprocedural hypoparathyroidism; Z20.822 Contact with and (suspected) exposure to COVID-19; N18.9 Chronic kidney disease, unspecified; G47.33 Obstructive sleep apnea (adult) (pediatric); I25.5 Ischemic cardiomyopathy; I34.0 Nonrheumatic mitral (valve) insufficiency; M19.91 Primary osteoarthritis, unspecified site; K21.9 Gastro-esophageal reflux disease without esophagitis; E89.0 Postprocedural hypothyroidism; F51.04 Psychophysiologic insomnia; N40.0 Benign prostatic hyperplasia without lower urinary tract symptoms; S80.821A Blister (nonthermal), right lower leg, initial encounter; S80.822A Blister (nonthermal), left lower leg, initial encounter; Z79.82 Long term (current) use of aspirin; Z79.01 Long term (current) use of anticoagulants; Z79.899 Other long term (current) drug therapy; Z87.891 Personal history of nicotine dependence; Z95.810 Presence of automatic (implantable) cardiac defibrillator; Z95.1 Presence of aortocoronary bypass graft; Z90.89 Acquired absence of other organs; Z71.3 Dietary counseling and surveillance; Z98.890 Other specified postprocedural states; Z98.49 Cataract extraction status, unspecified eye; Z80.42 Family history of malignant neoplasm of prostate; Z80.8 Family history of malignant neoplasm of other organs or systems
CPT/HCPCS: 36415; 71046; 76770; 80048; 80053; 81003; 83605; 83735; 83880; 85025; 85610; 85730; 87635; 93005; 93306; 99284

== ENCOUNTER 2020-12-29 11:43 | Inpatient (IN) | payer MEDICARE ==
[2020-12-29] MEDS ORDERED: FUROSEMIDE 10 MG/ML 4 ML VIAL IV STA (12:20)
--- NOTE | 2020-12-29 12:41 | ED ---
General Adult HPI - General Chief complaint: Extremity Problem,Nontraumatic Stated complaint: Lower extremity edema Time Seen by Provider: 12/29/20 12:05 Source: patient, EMS Mode of arrival: EMS Limitations: physical limitation - History of Present Illness Initial comments: Patient is a 75-year-old male that presents to the emergency Department at the mentation of his primary care Dr. Jacobs. Patient does have a complicated medical history including congestive heart failure CHF exacerbation acute kidney injury, fluid retention. He notes that his primary care 7 here to get further evaluation and to help get some of the fluid off as he is retaining a good amount. Patient was in no apparent distress or pain while sitting up in bed during the exam interview. He notes that he took his Lasix last night but cannot remember if he took it this morning. Patient is also taking Aldactone. He denied any pain or other complaints. He denied any chest pain shortness of breath headache nausea vomiting diarrhea constipation fever fatigue chills. - Related Data Home Medications Medication Instructions Recorded Confirmed Multivitamin [Men's Multi-Vitamin] 1 tab PO DAILY 07/18/15 12/29/20 Spironolactone [Aldactone] 25 mg PO DAILY 07/18/15 12/29/20 Sacubitril/Valsartan [Entresto 24 1 tab PO BID 04/27/18 12/29/20 mg-26 mg Tablet] Apixaban [Eliquis] 5 mg PO BID 07/06/18 12/29/20 carvediloL [Coreg*] 6.25 mg PO BID 07/06/18 12/29/20 Aspirin EC [Ecotrin Low Dose] 81 mg PO BID 09/14/20 12/29/20 Nystatin [Nystop] 1 applic TOPICAL BID 09/14/20 12/29/20 Ascorbic Acid [Vitamin C] 500 mg PO BID 12/10/20 12/29/20 Atorvastatin [Lipitor] 10 mg PO HS 12/10/20 12/29/20 Docusate [Colace] 200 mg PO BID 12/10/20 12/29/20 Furosemide [Lasix] 80 mg PO BID@1200,2100 12/10/20 12/29/20 Nitroglycerin Sl Tabs [Nitrostat] 0.4 mg SL Q5M PRN 12/10/20 12/29/20 Ondansetron Odt [Zofran ODT] 8 mg PO BID@0900,1300 12/10/20 12/29/20 Pantoprazole Sodium [Protonix] 40 mg PO BID@0900,1300 12/10/20 12/29/20 Polyethylene Glycol 3350 [Miralax] 34 gm PO DAILY 12/10/20 12/29/20 Potassium Chloride [Klor-Con 20] 20 meq PO DAILY 12/10/20 12/29/20 Sucralfate 1 gm PO ACHS PRN 12/10/20 12/29/20 metOLazone [Zaroxolyn] 2.5 mg PO MOFR 12/10/20 12/29/20 Allergies Allergy/AdvReac Type Severity Reaction Status Date / Time No Known Allergies Allergy Verified 12/29/20 14:58 Review of Systems ROS Statement: Those systems with pertinent positive or pertinent negative responses have been documented in the HPI. ROS Other: All systems not noted in ROS Statement are negative. Past Medical History Past Medical History: Atrial Fibrillation, Heart Failure, Hyperlipidemia, Osteoarthritis (OA), Prostate Disorder, Sleep Apnea/CPAP/BIPAP, Thyroid Disorder Additional Past Medical History / Comment(s): uses oxygen @2l PRN, KATHRINE not using C PAP at home currently, occ lower leg edema. History of Any Multi-Drug Resistant Organisms: None Reported Past Surgical History: Adenoidectomy, Coronary Bypass/CABG, Heart Catheterization, Tonsillectomy Additional Past Surgical History / Comment(s): parathyroidectomy, cataract surg., cardiac cath. 16, AICD/Pacer Past Anesthesia/Blood Transfusion Reactions: No Reported Reaction Type of Cardiac Device: Permanent Pacemaker, AICD Device Placement Date:: 05/2018 Past Psychological History: No Psychological Hx Reported Smoking Status: Never smoker Past Alcohol Use History: None Reported Past Drug Use History: None Reported - Past Family History Father Family Medical History: Cancer Additional Family Medical History / Comment(s): Father had prostate cancer with mets to the bone. He at age 76 yrs. General Exam Limitations: physical limitation General appearance: alert, in no apparent distress, obese Head exam: Present: atraumatic, normocephalic, normal inspection Eye exam: Present: normal appearance, PERRL, EOMI. Absent: scleral icterus, conjunctival injection, periorbital swelling Neck exam: Present: normal inspection Respiratory exam: Present: normal lung sounds bilaterally. Absent: respiratory distress, wheezes, rales, rhonchi, stridor Cardiovascular Exam: Present: regular rate, normal rhythm, normal heart sounds. Absent: systolic murmur, diastolic murmur, rubs, gallop, clicks GI/Abdominal exam: Present: soft, normal bowel sounds. Absent: distended, tenderness, guarding, rebound, rigid Extremities exam: Present: normal inspection, full ROM, normal capillary refill, other (2+ edema in bilateral extremities). Absent: tenderness, pedal edema, joint swelling, calf tenderness Neurological exam: Present: alert, oriented X3, CN II-XII intact Psychiatric exam: Present: normal affect, normal mood Skin exam: Present: warm, dry, intact, normal color. Absent: rash Course Vital Signs 12/29/20 11:52 Temperature 97.1 F L Pulse Rate 95 Respiratory 22 Rate Blood Pressure 121/110 O2 Sat by Pulse 97 Oximetry EKG Findings - EKG Comments: EKG Findings:: Ventricular rate 70 bpm, ID interval 328 ms, QRS duration 186 ms, QT/QTc 464/500 one milliseconds, PareT axes */-74/102. Sinus rhythm with first-degree AV block, left axis deviation, right bundle branch block, T wave abnormality, consider lateral ischemia, abnormal ECG. Medical Decision Making - Medical Decision Making 75-year-old male sent by primary care to be admitted for CHF and fluid retention. Labs, EKG, cardiac monitor technician, chest x-ray, 40 mg of Lasix ordered. Labs: Sodium 125, potassium 5.5, BU when 108, creatinine 3.54, troponin 0.044 Chest x-ray shows CHF exacerbation with some vascular congestion. Case discussed with Dr. Velarde, patient will be admitted inpatient. Dr. Cortez was consult at all except the admit with a nephrology consult. - Lab Data Result diagrams: 12/29/20 12:27 12/29/20 12:27 Lab Results 12/29/20 12/29/20 12/29/20 Range/Units 12:27 12:27 12:27 WBC 7.8 (3.8-10.6) k/uL RBC 4.76 (4.30-5.90) m/uL Hgb 14.8 (13.0-17.5) gm/dL Hct 44.1 (39.0-53.0) % MCV 92.6 (80.0-100.0) fL MCH 31.0 (25.0-35.0) pg MCHC 33.5 (31.0-37.0) g/dL RDW 16.5 H (11.5-15.5) % Plt Count 105 L (150-450) k/uL MPV 8.1 Neutrophils % 83 % Lymphocytes % 5 % Monocytes % 7 % Eosinophils % 3 % Basophils % 0 % Neutrophils # 6.5 (1.3-7.7) k/uL Lymphocytes # 0.4 L (1.0-4.8) k/uL Monocytes # 0.6 (0-1.0) k/uL Eosinophils # 0.2 (0-0.7) k/uL Basophils # 0.0 (0-0.2) k/uL Anisocytosis Slight PT 12.4 H (9.0-12.0) sec INR 1.2 H (<1.2) APTT 28.5 (22.0-30.0) sec Sodium 125 L (137-145) mmol/L Potassium 5.5 H (3.5-5.1) mmol/L Chloride 89 L (98-107) mmol/L Carbon Dioxide 29 (22-30) mmol/L Anion Gap 7 mmol/L BUN 108 H* (9-20) mg/dL Creatinine 3.54 H (0.66-1.25) mg/dL Est GFR (CKD-EPI)AfAm 19 (>60 ml/min/1.73 sqM) Est GFR (CKD-EPI)NonAf 16 (>60 ml/min/1.73 sqM) Glucose 117 H (74-99) mg/dL Plasma Lactic Acid Abbe (0.7-2.0) mmol/L Calcium 8.3 L (8.4-10.2) mg/dL Magnesium 2.6 H (1.6-2.3) mg/dL Total Bilirubin 1.3 (0.2-1.3) mg/dL AST 29 (17-59) U/L ALT 51 H (4-49) U/L Alkaline Phosphatase 209 H (38-126) U/L Troponin I (0.000-0.034) ng/mL NT-Pro-B Natriuret Pep pg/mL Total Protein 5.0 L (6.3-8.2) g/dL Albumin 2.6 L (3.5-5.0) g/dL 12/29/20 12/29/20 12/29/20 Range/Units 12:27 12:27 12:27 WBC (3.8-10.6) k/uL RBC (4.30-5.90) m/uL Hgb (13.0-17.5) gm/dL Hct (39.0-53.0) % MCV (80.0-100.0) fL MCH (25.0-35.0) pg MCHC (31.0-37.0) g/dL RDW (11.5-15.5) % Plt Count (150-450) k/uL MPV Neutrophils % % Lymphocytes % % Monocytes % % Eosinophils % % Basophils % % Neutrophils # (1.3-7.7) k/uL Lymphocytes # (1.0-4.8) k/uL Monocytes # (0-1.0) k/uL Eosinophils # (0-0.7) k/uL Basophils # (0-0.2) k/uL Anisocytosis PT (9.0-12.0) sec INR (<1.2) APTT (22.0-30.0) sec Sodium (137-145) mmol/L Potassium (3.5-5.1) mmol/L Chloride (98-107) mmol/L Carbon Dioxide (22-30) mmol/L Anion Gap mmol/L BUN (9-20) mg/dL Creatinine (0.66-1.25) mg/dL Est GFR (CKD-EPI)AfAm (>60 ml/min/1.73 sqM) Est GFR (CKD-EPI)NonAf (>60 ml/min/1.73 sqM) Glucose (74-99) mg/dL Plasma Lactic Acid Abbe 1.7 (0.7-2.0) mmol/L Calcium (8.4-10.2) mg/dL Magnesium (1.6-2.3) mg/dL Total Bilirubin (0.2-1.3) mg/dL AST (17-59) U/L ALT (4-49) U/L Alkaline Phosphatase (38-126) U/L Troponin I 0.044 H* (0.000-0.034) ng/mL NT-Pro-B Natriuret Pep 7790 pg/mL Total Protein (6.3-8.2) g/dL Albumin (3.5-5.0) g/dL - EKG Data -: EKG Interpreted by Me EKG Comments: Ventricular rate 70 bpm, ID interval 328 ms, QRS duration 186 ms, QT/QTc 464/500 one milliseconds, PareT axes */-74/102. Sinus rhythm with first-degree AV block, left axis deviation, right bundle branch block, T wave abnormality, consider lateral ischemia, abnormal ECG - Radiology Data Radiology results: report reviewed, image reviewed Chest x-ray: Sternal wires redemonstrated. There is cardiomegaly with small to be pacer. Persistent central vascular congestion. Osseous structures remain demineralized. Correlate for CHF exacerbation as there is cardiomegaly with mild to moderate central vascular congestion redemonstrated. Disposition Clinical Impression: Elevated troponin, Chronic systolic CHF (congestive heart failure), CHF exacerbation, Bilateral lower extremity edema Disposition: ADMITTED IP TO THIS HOSP Condition: Stable Is patient prescribed a controlled substance at d/c from ED?: No Referrals: Romero Jacobs MD [Primary Care Provider] - 1-2 days Time of Disposition: 16:01
[2020-12-29 12:57] LABS: Anisocytosis Slight; Basophils % (A) 0 %; Eosinophils # (A) 0.2 k/uL (0-0.7); Eosinophils % (A) 3 %; HCT 44.1 % (39.0-53.0); HGB 14.8 gm/dL (13.0-17.5); Lymphocytes # (A) 0.4 k/uL (1.0-4.8); Lymphocytes % (A) 5 %; MCHC 33.5 g/dL (31.0-37.0); MCV 92.6 fL (80.0-100.0); Mean Platelet Volume 8.1; Monocytes # (A) 0.6 k/uL (0-1.0); Monocytes % (A) 7 %; Neutrophils # (A) 6.5 k/uL (1.3-7.7); Neutrophils % (A) 83 %; Platelet Count 105 k/uL (150-450); RBC 4.76 m/uL (4.30-5.90); RDW 16.5 % (11.5-15.5); WBC 7.8 k/uL (3.8-10.6)
[2020-12-29 13:18] LABS: Albumin 2.6 g/dL (3.5-5.0); Calcium 8.3 mg/dL (8.4-10.2); Magnesium 2.6 mg/dL (1.6-2.3); Potassium 5.5 mmol/L (3.5-5.1); Total Bilirubin 1.3 mg/dL (0.2-1.3)
[2020-12-29 13:52] LABS: INR 1.2 (<1.2); Partial Thromboplastin Time 28.5 sec (22.0-30.0); Prothrombin Time 12.4 sec (9.0-12.0)
[2020-12-29] MEDS ORDERED: NALOXONE 0.4 MG/ML 1 ML VIAL IV PRN (14:21)
--- NOTE | 2020-12-29 15:32 | XR ---
EXAMINATION TYPE: XR chest 1V DATE OF EXAM: 12/29/2020 COMPARISON: Chest x-ray 19 days ago. HISTORY: Difficulty in breathing. TECHNIQUE: 2 AP portable frontal views of the chest are obtained. FINDINGS: Sternal wires redemonstrated. There is cardiomegaly with multi lead pacemaker. Persistent central vas cular congestion. The osseous structures remain demineralized. IMPRESSION: Correlate for CHF exacerbation as there is cardiomegaly with mild/moderate central vascu lar congestion redemonstrated.
[2020-12-29] MEDS: FUROSEMIDE 100 MG in SODIUM CHLORIDE 0.9% 90 ML IV SCH ×2 (16:36→22:58)
[2020-12-29] MEDS ORDERED: NITROGLYCERIN SL TABS 0.4 MG TAB SUBLINGUAL PRN (17:50)
[2020-12-29 20:02] LABS: Glucose,Whole Blood 160 mg/dL (75-99)
[2020-12-29] MEDS: ASPIRIN 81 MG PO SCH (21:26)
[2020-12-29] MEDS: ATORVASTATIN 10 MG TAB PO SCH (21:26)
[2020-12-29] MEDS: carvediloL 6.25 MG TAB PO SCH (21:26)
[2020-12-29] MEDS: ASCORBIC ACID 500 MG TAB PO SCH (21:27)
--- NOTE | 2020-12-29 21:30 | P.HPIM ---
History of Present Illness H&P Date: 12/29/20 Chief Complaint: Edema with blisters lower extremity History of presenting complaint: This is a 75-year-old patient of Dr. Romero Jacobs. materials assistant Dr. Clements. Chronic stable medical conditions include atrial fibrillation, osteoarthritis, hyperlipidemia, prostate disorder, obstructive sleep apnea does not use CPAP, hypothyroid, coronary artery disease with bypass. Does have a walker at home. Patient was recently hospitalized with acute congestive heart exacerbation and acute kidney injury felt to be cardiorenal syndrome. Was put on a Lasix drip. To which it responded well. Patient now presents with increasing lower extremity swelling. Blisters. Redn ess in the groin area. Denies any fever and chills. Appetite is fair. Baseline shortness of breath. I daughter to Lasix drip on the patient. Patient's blood pressure dropped to about 70 systolic. Patient smoked in ICU. Ash Conveyor Operator nephrology cardiology was consulted. Review of systems: GEN.: Tired EYES: None HEENT: None NECK: None RESPIRATORY: [As above CARDIOVASCULAR: As above GASTROINTESTINAL: None GENITOURINARY: None MUSCULOSKELETAL: Joint pains LYMPHATICS: None DERMATOLOGICAL: Breakdown of skin in the groin area blisters lower extremity HEMATOLOGICAL: None PSYCHIATRY: None NEUROLOGICAL: None Past medical history to include: Atrial fibrillation, CHF, hyperlipidemia, osteoarthritis, prostate disorder, obstructive sleep apnea does not use CPAP, home oxygen 2 L when necessary, coronary artery disease with bypass, thyroidectomy, permanent pacemaker with AICD Social history: Lives with his granddaughter. Does use a walker/cane. Patient quit daily using a pipe 40 years ago. No alcohol. Physical examination: VITAL SIGNS: 97.1, 70, 20, 86 x 56, 99% room air GENERAL: BMI 50.5, reclining in bed, slightly short of breath EYES: Pupils equal. Conjunctiva normal. HEENT: External appearance of nose and ears normal, oral cavity grossly normal. NECK: JVD unable to assess; masses not palpable. HEART: Distant heart sounds; significant edema. LUNGS: Respiratory rate increased; decreased breath sounds ABDOMEN: Soft, nontender, liver spleen not palpable, no masses palpable. DERMATOLOGICAL: Redness skin both the groin folds , with breakdown of skin PSYCH: Alert and oriented x3; mood and affect normal. NEUROLOGICAL: Cranial nerves grossly intact; no facial asymmetry, power and sensation grossly intact. MUSCULAR skeletal: Evidence of OA LYMPHATICS: No lymph nodes palpable in the axilla and neck INVESTIGATIONS, reviewed in the clinical context: WBC 7.8 hemoglobin 14.8 platelets 105 potassium 5.5 bun 108 creatinine 3.54 troponin I 0.044 albumin 2.6 Coronavirus [PCR-not detected EKG tracing personally reviewed by me-right bundle branch block Chest x-ray film personally reviewed by me-cardiomegaly pulmonary edema 2-D echocardiogram [12/11/2020 dose packet: Moderate concentric LVH, EF less than 20% moderate mitral regurgitation Recent visual ultrasound: No evidence of renal mass obstruction. Exam limited because of patient's size from December 12. Assessment and plan: -Acute on chronic congestive heart failure exacerbation, from systolic dysfunction. EF less than 20% Lasix drip 10 mg an hour. Strict I's and O's. Fluid restriction. -Acute kidney injury likely prerenal from cardiorenal syndrome On Lasix drip. -Paroxysmal atrial fibrillation, currently in sinus rhythm -Intertriginous ezra infection of bilateral groin -severe Topical nystatin powder -AICD -Hyperlipidemia- Continue Lipitor -Chronic insomnia -, multifactorial continue melatonin -Primary osteoarthritis, use Tylenol when necessary -BPH Lozada catheter placed for strict I's and O's -Obstructive sleep apnea patient does not use CPAP -Morbid obesity BMI 50.5. Weight loss measures and follow-up with dietitian and PCP -Coronary artery disease with a history of coronary bypass Continue with aspirin, beta fior -GERD continue omeprazole -Cardiogenic shock, with hypertension Patient be started on levo fed. Hold Entresto. Patient was moved to the ICU. Consultation to nephrology, cardiology, route clerk. Care was discussed with the patient. Questions answered. Advanced care planning: End-of-life care was discussed with the patient. He understands that his prognosis guarded. He has a low ejection fraction. Kidney function is compromised. He agrees to proceed to become a DO NOT RESUSCITATE. His power of estate planning attorney is also his daughter encases not able to take decisions. Other questions were answered. Time spent for this about 20 minutes Past Medical History Past Medical History: Atrial Fibrillation, Heart Failure, Hyperlipidemia, Osteoarthritis (OA), Prostate Disorder, Sleep Apnea/CPAP/BIPAP, Thyroid Disorder Additional Past Medical History / Comment(s): uses oxygen @2l PRN, KATHRINE not using C PAP at home currently, occ lower leg edema. History of Any Multi-Drug Resistant Organisms: None Reported Past Surgical History: Adenoidectomy, Coronary Bypass/CABG, Heart Catheterization, Tonsillectomy Additional Past Surgical History / Comment(s): parathyroidectomy, cataract surg., cardiac cath. 10-16-15, AICD/Pacer Past Anesthesia/Blood Transfusion Reactions: No Reported Reaction Type of Cardiac Device: Permanent Pacemaker, AICD Device Placement Date:: 05/2018 Past Psychological History: No Psychological Hx Reported Smoking Status: Never smoker Past Alcohol Use History: None Reported Past Drug Use History: None Reported - Past Family History Father Family Medical History: Cancer Additional Family Medical History / Comment(s): Father had prostate cancer with mets to the bone. He at age 76 yrs. Medications and Allergies Home Medications Medication Instructions Recorded Confirmed Type Multivitamin [Men's Multi-Vitamin] 1 tab PO DAILY 07/18/15 12/29/20 History Spironolactone [Aldactone] 25 mg PO DAILY 07/18/15 12/29/20 History Sacubitril/Valsartan [Entresto 24 1 tab PO BID 04/27/18 12/29/20 History mg-26 mg Tablet] Apixaban [Eliquis] 5 mg PO BID 07/06/18 12/29/20 History carvediloL [Coreg*] 6.25 mg PO BID 07/06/18 12/29/20 History Aspirin EC [Ecotrin Low Dose] 81 mg PO BID 09/14/20 12/29/20 History Nystatin [Nystop] 1 applic TOPICAL BID 09/14/20 12/29/20 History Ascorbic Acid [Vitamin C] 500 mg PO BID 12/10/20 12/29/20 History Atorvastatin [Lipitor] 10 mg PO HS 12/10/20 12/29/20 History Docusate [Colace] 200 mg PO BID 12/10/20 12/29/20 History Furosemide [Lasix] 80 mg PO BID@1200,2100 12/10/20 12/29/20 History Nitroglycerin Sl Tabs [Nitrostat] 0.4 mg SL Q5M PRN 12/10/20 12/29/20 History Ondansetron Odt [Zofran ODT] 8 mg PO BID@0900,1300 12/10/20 12/29/20 History Pantoprazole Sodium [Protonix] 40 mg PO BID@0900,1300 12/10/20 12/29/20 History Polyethylene Glycol 3350 [Miralax] 34 gm PO DAILY 12/10/20 12/29/20 History Potassium Chloride [Klor-Con 20] 20 meq PO DAILY 12/10/20 12/29/20 History Sucralfate 1 gm PO ACHS PRN 12/10/20 12/29/20 History metOLazone [Zaroxolyn] 2.5 mg PO MOFR 12/10/20 12/29/20 History Allergies Allergy/AdvReac Type Severity Reaction Status Date / Time No Known Allergies Allergy Verified 12/29/20 14:58 Physical Exam Vitals: Vital Signs Temp Pulse Resp BP Pulse Ox 12/29/20 17:00 70 20 96/56 99 12/29/20 14:58 70 22 74/56 95 12/29/20 11:52 97.1 F L 95 22 121/110 97 Intake and Output 12/29/20 12/29/20 12/29/20 06:59 14:59 22:59 Other: Weight 147.418 kg Results CBC & Chem 7: 12/29/20 12:27 12/29/20 12:27 Labs: Abnormal Lab Results - Last 24 Hours (Table) 12/29/20 12/29/20 12/29/20 Range/Units 12:27 12:27 12:27 RDW 16.5 H (11.5-15.5) % Plt Count 105 L (150-450) k/uL Lymphocytes # 0.4 L (1.0-4.8) k/uL PT 12.4 H (9.0-12.0) sec INR 1.2 H (<1.2) Sodium 125 L (137-145) mmol/L Potassium 5.5 H (3.5-5.1) mmol/L Chloride 89 L (98-107) mmol/L BUN 108 H* (9-20) mg/dL Creatinine 3.54 H (0.66-1.25) mg/dL Glucose 117 H (74-99) mg/dL Calcium 8.3 L (8.4-10.2) mg/dL Magnesium 2.6 H (1.6-2.3) mg/dL ALT 51 H (4-49) U/L Alkaline Phosphatase 209 H (38-126) U/L Troponin I (0.000-0.034) ng/mL Total Protein 5.0 L (6.3-8.2) g/dL Albumin 2.6 L (3.5-5.0) g/dL 12/29/20 Range/Units 12:27 RDW (11.5-15.5) % Plt Count (150-450) k/uL Lymphocytes # (1.0-4.8) k/uL PT (9.0-12.0) sec INR (<1.2) Sodium (137-145) mmol/L Potassium (3.5-5.1) mmol/L Chloride (98-107) mmol/L BUN (9-20) mg/dL Creatinine (0.66-1.25) mg/dL Glucose (74-99) mg/dL Calcium (8.4-10.2) mg/dL Magnesium (1.6-2.3) mg/dL ALT (4-49) U/L Alkaline Phosphatase (38-126) U/L Troponin I 0.044 H* (0.000-0.034) ng/mL Total Protein (6.3-8.2) g/dL Albumin (3.5-5.0) g/dL
[2020-12-29] MEDS: NOREPINEPHRINE 4 MG in SODIUM CHLORIDE 0.9% 250 ML IV SCH (22:58)
[2020-12-30 00:53] LABS: Appearance,Urine Clear (Clear); Bacteria,Urine Rare /hpf; Bilirubin,Urine Negative (Negative); Blood,Urine Moderate (Negative); Color,Urine Light Yellow; Glucose,Urine (UA) Negative (Negative); Hyaline Casts,Urine 1 /lpf (0-2); Ketones,Urine Negative (Negative); Leukocyte Esterase,Urine Negative (Negative); Mucus,Urine Rare /hpf; Nitrite,Urine Negative (Negative); Protein,Urine Negative (Negative); RBC,Urine 23 /hpf (0-5); Specific Gravity,Urine 1.008 (1.001-1.035); Urobilinogen,Urine <2.0 mg/dL (<2.0); WBC,Urine 2 /hpf (0-5)
[2020-12-30] MEDS: MELATONIN 3 MG TABLET PO SCH ×2 (00:55→20:42)
[2020-12-30] MEDS: ACETAMINOPHEN TAB 325 MG TAB PO PRN ×3 (00:55→20:49)
[2020-12-30] MEDS: NYSTATIN 100,000 UNIT/GM POWD 15 GM TOPICAL SCH ×3 (00:56→21:59)
[2020-12-30 03:54] LABS: Anisocytosis Slight; Basophils % (A) 0 %; Eosinophils # (A) 0.1 k/uL (0-0.7); Eosinophils % (A) 1 %; HCT 49.9 % (39.0-53.0); HGB 16.3 gm/dL (13.0-17.5); Lymphocytes # (A) 0.3 k/uL (1.0-4.8); Lymphocytes % (A) 2 %; MCH 30.6 pg (25.0-35.0); MCHC 32.7 g/dL (31.0-37.0); MCV 93.6 fL (80.0-100.0); Mean Platelet Volume 7.8; Monocytes # (A) 0.7 k/uL (0-1.0); Monocytes % (A) 5 %; Neutrophils # (A) 13.6 k/uL (1.3-7.7); Neutrophils % (A) 91 %; Platelet Count 129 k/uL (150-450); RBC 5.33 m/uL (4.30-5.90); RDW 16.5 % (11.5-15.5); WBC 14.9 k/uL (3.8-10.6)
[2020-12-30] MEDS: NOREPINEPHRINE 4 MG in SODIUM CHLORIDE 0.9% 250 ML IV SCH ×4 (04:06→17:22)
[2020-12-30 04:26] LABS: Albumin 2.8 g/dL (3.5-5.0); Calcium 8.7 mg/dL (8.4-10.2); Magnesium 2.5 mg/dL (1.6-2.3); Potassium 5.5 mmol/L (3.5-5.1); Total Bilirubin 2.2 mg/dL (0.2-1.3); Total Protein 5.4 g/dL (6.3-8.2)
[2020-12-30] MEDS ORDERED: ONDANSETRON 4 MG/2 ML VIAL IVP PRN (05:09)
[2020-12-30] MEDS: PANTOPRAZOLE 40 MG TABLET PO SCH ×2 (05:11→17:07)
--- NOTE | 2020-12-30 08:06 | XR ---
EXAMINATION TYPE: XR chest 1V DATE OF EXAM: 12/30/2020 HISTORY: Shortness of breath. COMPARISON: 12/29/2020 TECHNIQUE: Single view of the chest is submitted. FINDINGS: Demonstrated are scattered senescent parenchymal change. There is no evidence for focal infiltrate. Persistent cardiomegaly without overt failure. Pacer device is in place. Hilar and mediastinal structures are within normal limits. Degenerative changes are seen of the dorsal spine. IMPRESSION: 1. Cardiomegaly with pulmonary venous congestion. No evidence for overt failure at this time.
[2020-12-30] MEDS: carvediloL 6.25 MG TAB PO SCH (08:52)
[2020-12-30] MEDS: polyethylene glycoL 3350 17 GM POWD.PACK PO SCH (08:53)
[2020-12-30] MEDS: ASPIRIN 81 MG PO SCH ×2 (08:57→20:42)
[2020-12-30] MEDS: ASCORBIC ACID 500 MG TAB PO SCH ×2 (08:57→20:42)
[2020-12-30] MEDS ORDERED: FUROSEMIDE 10 MG/ML 10 ML VIAL IV SCH ×2 (09:00→21:00)
[2020-12-30] MEDS ORDERED: FUROSEMIDE 10 MG/ML 4 ML VIAL IV ONE (09:15)
[2020-12-30] MEDS: DOBUTamine DRIP 500 MG in DEXTROSE/WATER 1 250ML.BAG IV SCH (10:06)
[2020-12-30 10:37] VITALS: BMI 50.5
--- NOTE | 2020-12-30 10:49 | P.NPCON ---
History of Present Illness - Reason for Consult acute renal failure, chronic renal failure - History of Present Illness Reason for consultation: Acute kidney injury on chronic kidney disease History of present illness: Patient is a 75-year-old male seen in renal consultation for acute kidney injury on chronic kidney disease. Patient has chronic kidney disease stage IIIB with baseline creatinine near 1-1.2 from September 2020. However earlier this month his creatinine was in the range of 1.6-2. This admission was 3.54 and is 2.8 today. Patient presented to the hospital with shortness of breath and worsening edema. He denies any vomiting or diarrhea. However patient is not a very reliable historian at this time. He was maintained on Lasix drip but due to low blood pressure he was transferred to the ICU. He is currently maintained on Levophed. Dobutamine will be started by cardiology later today. Lasix drip has been stopped and he's now on Lasix 40 mg IV twice daily. Blood pressure is in the systolic 80s to 90s. Patient is nonoliguric with urine output anywhere from 140 to over 200 mL an hour. Patient does have history of CHF with ejection fraction of less than 20%. Vital signs are stable. Blood pressure on the lower side. General: The patient appeared well nourished and normally developed. HEENT: Head exam is unremarkable. Neck is without jugular venous distension. LUNGS: Breath sounds decreased. HEART: Rate and Rhythm are regular. ABDOMEN: Soft, no distention. EXTREMITITES: 2+ edema. Past Medical History Past Medical History: Atrial Fibrillation, Heart Failure, Hyperlipidemia, Osteoarthritis (OA), Prostate Disorder, Sleep Apnea/CPAP/BIPAP, Thyroid Disorder Additional Past Medical History / Comment(s): uses oxygen @2l PRN, KATHRINE not using C PAP at home currently, occ lower leg edema. History of Any Multi-Drug Resistant Organisms: None Reported Past Surgical History: Adenoidectomy, Coronary Bypass/CABG, Heart Catheterization, Tonsillectomy Additional Past Surgical History / Comment(s): parathyroidectomy, cataract surg., cardiac cath. 10-16-15, AICD/Pacer Past Anesthesia/Blood Transfusion Reactions: No Reported Reaction Type of Cardiac Device: Permanent Pacemaker, AICD Device Placement Date:: 05/2018 Past Psychological History: No Psychological Hx Reported Smoking Status: Never smoker Past Alcohol Use History: None Reported Past Drug Use History: None Reported - Past Family History Father Family Medical History: Cancer Additional Family Medical History / Comment(s): Father had prostate cancer with mets to the bone. He at age 76 yrs. Medications and Allergies Home Medications Medication Instructions Recorded Confirmed Type Multivitamin [Men's Multi-Vitamin] 1 tab PO DAILY 07/18/15 12/29/20 History Spironolactone [Aldactone] 25 mg PO DAILY 07/18/15 12/29/20 History Sacubitril/Valsartan [Entresto 24 1 tab PO BID 04/27/18 12/29/20 History mg-26 mg Tablet] Apixaban [Eliquis] 5 mg PO BID 07/06/18 12/29/20 History carvediloL [Coreg*] 6.25 mg PO BID 07/06/18 12/29/20 History Aspirin EC [Ecotrin Low Dose] 81 mg PO BID 09/14/20 12/29/20 History Nystatin [Nystop] 1 applic TOPICAL BID 09/14/20 12/29/20 History Ascorbic Acid [Vitamin C] 500 mg PO BID 12/10/20 12/29/20 History Atorvastatin [Lipitor] 10 mg PO HS 12/10/20 12/29/20 History Docusate [Colace] 200 mg PO BID 12/10/20 12/29/20 History Furosemide [Lasix] 80 mg PO BID@1200,2100 12/10/20 12/29/20 History Nitroglycerin Sl Tabs [Nitrostat] 0.4 mg SL Q5M PRN 12/10/20 12/29/20 History Ondansetron Odt [Zofran ODT] 8 mg PO BID@0900,1300 12/10/20 12/29/20 History Pantoprazole Sodium [Protonix] 40 mg PO BID@0900,1300 12/10/20 12/29/20 History Polyethylene Glycol 3350 [Miralax] 34 gm PO DAILY 12/10/20 12/29/20 History Potassium Chloride [Klor-Con 20] 20 meq PO DAILY 12/10/20 12/29/20 History Sucralfate 1 gm PO ACHS PRN 12/10/20 12/29/20 History metOLazone [Zaroxolyn] 2.5 mg PO MOFR 12/10/20 12/29/20 History Allergies Allergy/AdvReac Type Severity Reaction Status Date / Time No Known Allergies Allergy Verified 12/29/20 14:58 Physical Exam Vitals: Vital Signs Temp Pulse Resp BP Pulse Ox 12/30/20 10:00 69 17 99/59 93 L 12/30/20 09:30 69 18 87/49 94 L 12/30/20 09:00 69 15 89/55 96 12/30/20 08:30 69 23 91/46 93 L 12/30/20 08:00 97.7 F 71 14 82/42 96 12/30/20 07:30 72 17 85/42 83 L 12/30/20 07:00 70 15 79/57 95 12/30/20 06:45 78 16 84/45 96 12/30/20 06:30 70 12 79/42 95 12/30/20 06:00 70 20 89/54 94 L 12/30/20 05:30 69 15 81/55 95 12/30/20 05:00 68 21 90/76 96 12/30/20 04:30 69 10 L 74/60 98 12/30/20 04:00 97.9 F 78 16 90/78 95 12/30/20 03:30 71 18 86/50 95 12/30/20 03:00 70 16 85/41 96 12/30/20 02:30 70 18 83/39 97 12/30/20 02:00 70 17 108/93 96 12/30/20 01:30 104 H 16 98/78 93 L 12/30/20 01:00 106 H 11 L 82/68 96 12/30/20 00:30 105 H 18 75/49 95 12/30/20 00:00 98.0 F 105 H 18 84/62 95 12/29/20 23:30 106 H 16 88/49 96 12/29/20 23:00 97 20 78/51 96 12/29/20 22:30 103 H 92/51 93 L 12/29/20 22:00 105 H 17 86/67 96 12/29/20 21:45 105 H 14 86/67 94 L 12/29/20 21:30 87 15 86/67 96 12/29/20 21:15 98 82/53 95 12/29/20 21:07 20 12/29/20 21:00 98 12 88/45 97 12/29/20 20:45 70 85/36 97 12/29/20 20:30 97.0 F L 100 88/50 97 12/29/20 20:15 103 H 21 83/60 92 L 12/29/20 17:00 70 20 96/56 99 12/29/20 16:51 97.8 F 12/29/20 14:58 70 22 74/56 95 12/29/20 11:52 97.1 F L 95 22 121/110 97 Intake and Output 12/29/20 12/30/20 12/30/20 22:59 06:59 14:59 Intake Total 63.667 438.905 230.003 Output Total 1000 1250 760 Balance -936.333 -811.095 -529.997 Intake: Intake, IV Titration 63.667 188.905 230.003 Amount Furosemide 100 mg In 63.667 Sodium Chloride 0.9% 90 ml @ 10 MG/HR 10 mls/hr IV .Q10H MIQUEL Rx#: [id number] Norepinephrine 4 mg In 188.905 230.003 Sodium Chloride 0.9% 250 ml @ 0.05 MCG/KG/MIN 28. 083 mls/hr IV .Q9H3M MIQUEL Rx#:[id number] Oral 250 Output: Urine 1000 1250 760 Other: Voiding Method Indwelling Catheter Indwelling Catheter Weight 164.2 kg 164.2 kg 164.2 kg Results - Lab Results Most recent lab results Calcium 8.7 mg/dL (8.4-10.2) 12/30/20 03:20 Magnesium 2.5 mg/dL (1.6-2.3) H 12/30/20 03:20 12/30/20 03:31 12/30/20 03:20 Assessment and Plan Plan: Assessment: 1. Acute kidney injury mostly prerenal secondary to hypotension and cardiorenal syndrome. Creatinine was 3.5 on admission is 2.8 today. No proteinuria on UA. Ultrasound from earlier this month reveals no evidence of hydronephrosis. 2. Chronic kidney disease stage IIIB with baseline creatinine in the range of 1.62 from earlier this month. Prior to that the creatinine was 1-1.2 in September 2020. 3. Acute on chronic systolic CHF with ejection fraction of less than 20%. 4. Volume overload. 5. Hypervolemic hyponatremia. 6. Mild hyperkalemia secondary to acute kidney injury. Plan: Agree with starting dobutamine drip. Maintain IV Lasix 40 mg twice daily. Wean Levophed. Add midodrine. 1200 mL fluid restriction. Continue to monitor renal function and urine output. Thank you for the consultation. I will continue to follow the patient with you during his hospital stay.
--- NOTE | 2020-12-30 11:02 | P.CNPUL ---
History of Present Illness Consult date: 12/30/20 Chief complaint: chf EXAC History of present illness: 75-year-old male patient with known history of ischemic cardiomyopathy with an ejection fraction of less than 20%, post AICD placement, known history of coronary artery disease with a previous coronary artery bypass surgery, paroxysmal atrial fibrillation, hypertension and hyperlipidemia who was recently in hospital in early December 2020 for decompensated heart failure. Note that his earlier hospitalization was in September 2020 for the same. he was receiving a combination of diuretics including Lasix and Zaroxolyn. He came in with worsening shortness of breath and he was treated accordingly and he was discharged home on 12/15/2020 with a combination of medication including Zaroxolyn 2.5 mg Mondays and Fridays, Aldactone 25 mg by mouth daily, Coreg 12.5 mg by mouth twice a day, Entresto 2426 one tablet twice a day, Lasix 80 mg by mouth twice a day. He was also placed on Revatio 20 mg by mouth daily, long- term anticoagulation with Eliquis 2.5 mg by mouth twice a day. . Note that during earlier hospitalizations, the patient's creatinine has been fluctuating. The patient had developed an acute kidney injury due to cardiorenal syndrome. Note that the patient is morbidly obese and has BPH and degenerative arthritis and other comorbidities. The patient came back to the hospital on 12/29/2020 because of worsening shortness of breath and fluid overloadretention. Denies any chest pain. No palpitations. No syncope. No nausea. No vomiting. No diarrhea. No abdominal pain. He was afebrile. BP initially was 121/90 and the patient had a sodium level of 125 with a potassium of 5.5 with a chloride of 89 and a BUN of 108 and a creatinine of 3.4. Coagulation profile was within normal limits. Liver function tests were normal, his proBNP level was 7790, troponin was at 0.044, EKG showed paced rhythm. Chest x-ray was consistent with post thoracotomy scar over the anterior chest and the patient has cardiomegaly and mild to moderate central vascular congestion demonstrated. He was hospitalized for heart failure. He was placed on Lasix drip at 10 mg an hour. Subsequently he got transferred to the intensive care because of intraoperative blood pressure with a systolic blood pressure dropped down to 74/56 and subsequently came up to 96/56. No tachypnea. Room air pulse ox was 96%. Did not require any pressors. COVID-19 testing was negative. Overnight, the patient was brought into the intensive care unit. The patient was started on norepinephrine infusion and the dose was titrated to maintain a mean arterial pressure above 65. Currently norepinephrine is running at 0.1 g respiratory program per minute. He was also started on dobutamine at 2.5 Shorty respiratory program per minute. He is on Lasix currently on 40 mg IV every 12 hours and the patient was taken off this Lasix drip. Neck fluid balance is -1.7 L over the past 24 hours. Renal function is improving and the creatinine is down to 2.6. He is awake and alert. He is currently off oxygen and he is on room air. No angina. No palpitations. No other issues otherwise for now. Review of Systems Constitutional: Reports fatigue, Reports poor appetite, Reports weight gain Eyes: denies as per HPI, denies blurred vision, denies bulging eye, denies decreased vision, denies diplopia, denies discharge, denies dry eye, denies irritation, denies itching, denies pain, denies photophobia, denies loss of peripheral vision, denies loss of vision, denies tunnel vision/blind spots Ears: deny: decreased hearing, ear discharge, earache, tinnitus Ears, nose, mouth and throat: Reports as per HPI Breasts: absent: as per HPI, gynecomastia Cardiovascular: Reports decreased exercise tolerance, Reports dyspnea on exertion, Reports edema, Reports leg edema, Reports shortness of breath Respiratory: Reports dyspnea Gastrointestinal: Reports as per HPI Genitourinary: Reports as per HPI, Reports nocturia, Reports urinary frequency, Reports urinary retention Musculoskeletal: Reports as per HPI, Reports muscle weakness Musculoskeletal: bilateral: ankle swelling, absent: ankle pain, ankle stiffness Integumentary: Reports as per HPI (thigh wounds, stage 2 along with excoriation and skin weeping ) Neurological: Reports as per HPI, Reports weakness Psychiatric: Reports as per HPI Endocrine: Reports as per HPI Hematologic/Lymphatic: Reports as per HPI Allergic/Immunologic: Reports as per HPI Past Medical History Past Medical History: Atrial Fibrillation, Heart Failure, Hyperlipidemia, Osteoarthritis (OA), Prostate Disorder, Sleep Apnea/CPAP/BIPAP, Thyroid Disorder Additional Past Medical History / Comment(s): uses oxygen @2l PRN, KATHRINE not using C PAP at home currently, occ lower leg edema. History of Any Multi-Drug Resistant Organisms: None Reported Past Surgical History: Adenoidectomy, Coronary Bypass/CABG, Heart Catheterization, Tonsillectomy Additional Past Surgical History / Comment(s): parathyroidectomy, cataract surg., cardiac cath. 10-16-15, AICD/Pacer Past Anesthesia/Blood Transfusion Reactions: No Reported Reaction Type of Cardiac Device: Permanent Pacemaker, AICD Device Placement Date:: 05/2018 Past Psychological History: No Psychological Hx Reported Smoking Status: Never smoker Past Alcohol Use History: None Reported Past Drug Use History: None Reported - Past Family History Father Family Medical History: Cancer Additional Family Medical History / Comment(s): Father had prostate cancer with mets to the bone. He at age 76 yrs. Medications and Allergies Home Medications Medication Instructions Recorded Confirmed Type Multivitamin [Men's Multi-Vitamin] 1 tab PO DAILY 07/18/15 12/29/20 History Spironolactone [Aldactone] 25 mg PO DAILY 07/18/15 12/29/20 History Sacubitril/Valsartan [Entresto 24 1 tab PO BID 04/27/18 12/29/20 History mg-26 mg Tablet] Apixaban [Eliquis] 5 mg PO BID 07/06/18 12/29/20 History carvediloL [Coreg*] 6.25 mg PO BID 07/06/18 12/29/20 History Aspirin EC [Ecotrin Low Dose] 81 mg PO BID 09/14/20 12/29/20 History Nystatin [Nystop] 1 applic TOPICAL BID 09/14/20 12/29/20 History Ascorbic Acid [Vitamin C] 500 mg PO BID 12/10/20 12/29/20 History Atorvastatin [Lipitor] 10 mg PO HS 12/10/20 12/29/20 History Docusate [Colace] 200 mg PO BID 12/10/20 12/29/20 History Furosemide [Lasix] 80 mg PO BID@1200,2100 12/10/20 12/29/20 History Nitroglycerin Sl Tabs [Nitrostat] 0.4 mg SL Q5M PRN 12/10/20 12/29/20 History Ondansetron Odt [Zofran ODT] 8 mg PO BID@0900,1300 12/10/20 12/29/20 History Pantoprazole Sodium [Protonix] 40 mg PO BID@0900,1300 12/10/20 12/29/20 History Polyethylene Glycol 3350 [Miralax] 34 gm PO DAILY 12/10/20 12/29/20 History Potassium Chloride [Klor-Con 20] 20 meq PO DAILY 12/10/20 12/29/20 History Sucralfate 1 gm PO ACHS PRN 12/10/20 12/29/20 History metOLazone [Zaroxolyn] 2.5 mg PO MOFR 12/10/20 12/29/20 History Allergies Allergy/AdvReac Type Severity Reaction Status Date / Time No Known Allergies Allergy Verified 12/29/20 14:58 Physical Exam Vitals: Vital Signs Temp Pulse Resp BP Pulse Ox 12/30/20 10:00 69 17 99/59 93 L 12/30/20 09:30 69 18 87/49 94 L 12/30/20 09:00 69 15 89/55 96 12/30/20 08:30 69 23 91/46 93 L 12/30/20 08:00 97.7 F 71 14 82/42 96 12/30/20 07:30 72 17 85/42 83 L 12/30/20 07:00 70 15 79/57 95 12/30/20 06:45 78 16 84/45 96 12/30/20 06:30 70 12 79/42 95 12/30/20 06:00 70 20 89/54 94 L 12/30/20 05:30 69 15 81/55 95 12/30/20 05:00 68 21 90/76 96 12/30/20 04:30 69 10 L 74/60 98 12/30/20 04:00 97.9 F 78 16 90/78 95 12/30/20 03:30 71 18 86/50 95 12/30/20 03:00 70 16 85/41 96 12/30/20 02:30 70 18 83/39 97 12/30/20 02:00 70 17 108/93 96 12/30/20 01:30 104 H 16 98/78 93 L 12/30/20 01:00 106 H 11 L 82/68 96 12/30/20 00:30 105 H 18 75/49 95 12/30/20 00:00 98.0 F 105 H 18 84/62 95 12/29/20 23:30 106 H 16 88/49 96 12/29/20 23:00 97 20 78/51 96 12/29/20 22:30 103 H 92/51 93 L 12/29/20 22:00 105 H 17 86/67 96 12/29/20 21:45 105 H 14 86/67 94 L 12/29/20 21:30 87 15 86/67 96 12/29/20 21:15 98 82/53 95 12/29/20 21:07 20 12/29/20 21:00 98 12 88/45 97 12/29/20 20:45 70 85/36 97 12/29/20 20:30 97.0 F L 100 88/50 97 12/29/20 20:15 103 H 21 83/60 92 L 12/29/20 17:00 70 20 96/56 99 12/29/20 16:51 97.8 F 12/29/20 14:58 70 22 74/56 95 12/29/20 11:52 97.1 F L 95 22 121/110 97 Intake and Output 12/29/20 12/30/20 12/30/20 22:59 06:59 14:59 Intake Total 63.667 438.905 230.003 Output Total 1000 1250 760 Balance -936.333 -811.095 -529.997 Intake: Intake, IV Titration 63.667 188.905 230.003 Amount Furosemide 100 mg In 63.667 Sodium Chloride 0.9% 90 ml @ 10 MG/HR 10 mls/hr IV .Q10H MIQUEL Rx#: [id number] Norepinephrine 4 mg In 188.905 230.003 Sodium Chloride 0.9% 250 ml @ 0.05 MCG/KG/MIN 28. 083 mls/hr IV .Q9H3M MIQUEL Rx#:[id number] Oral 250 Output: Urine 1000 1250 760 Other: Voiding Method Indwelling Catheter Indwelling Catheter Indwelling Catheter Weight 164.2 kg 164.2 kg 164.2 kg Morbidly obese, comfortable likely distress currently on room air oxygen Head exam was generally normal. There was no scleral icterus or corneal arcus. Mucous membranes were moist. Neck was supple and without jugular venous distension, thyromegaly, or carotid bruits. Carotids were easily palpable bilaterally. There was no adenopathy. Lungs sounds are diminished bilaterally involving the lung bases Heart sounds are distant, rhythm is paced, positive S1-S2, no significant murmurs. Abdominal exam revealed normal bowel sounds. The abdomen was soft, non-tender, and without masses, organomegaly, or appreciable enlargement of the abdominal aorta. Extremities are edematous and this is mainly lower extremities and there is areas of skin fluid weeping along with skin excoriation and some limited stage II ulcer on the thighs. Neurologically, the patient is awake and alert and the patient does not have any focal neurological deficit. Cranial nerves are essentially intact. Results - Laboratory Findings CBC and BMP: 12/30/20 03:31 12/30/20 03:20 PT/INR, D-dimer PT 12.4 sec (9.0-12.0) H 12/29/20 12:27 INR 1.2 (<1.2) H 12/29/20 12:27 Abnormal lab findings: Abnormal Labs 12/29/20 12/29/20 12/29/20 12:27 12:27 12:27 WBC RDW 16.5 H Plt Count 105 L Neutrophils # Lymphocytes # 0.4 L PT 12.4 H INR 1.2 H Sodium 125 L Potassium 5.5 H Chloride 89 L BUN 108 H* Creatinine 3.54 H Glucose 117 H POC Glucose (mg/dL) Calcium 8.3 L Magnesium 2.6 H Total Bilirubin ALT 51 H Alkaline Phosphatase 209 H Troponin I Total Protein 5.0 L Albumin 2.6 L Urine Blood Urine RBC Urine Bacteria Urine Mucus 12/29/20 12/29/20 12/30/20 12:27 20:00 00:20 WBC RDW Plt Count Neutrophils # Lymphocytes # PT INR Sodium Potassium Chloride BUN Creatinine Glucose POC Glucose (mg/dL) 160 H Calcium Magnesium Total Bilirubin ALT Alkaline Phosphatase Troponin I 0.044 H* Total Protein Albumin Urine Blood Moderate H Urine RBC 23 H Urine Bacteria Rare H Urine Mucus Rare H 12/30/20 12/30/20 03:20 03:31 WBC 14.9 H RDW 16.5 H Plt Count 129 L Neutrophils # 13.6 H Lymphocytes # 0.3 L PT INR Sodium 124 L Potassium 5.5 H Chloride 89 L BUN 102 H* Creatinine 2.80 H Glucose 165 H POC Glucose (mg/dL) Calcium Magnesium 2.5 H Total Bilirubin 2.2 H ALT Alkaline Phosphatase 201 H Troponin I Total Protein 5.4 L Albumin 2.8 L Urine Blood Urine RBC Urine Bacteria Urine Mucus Assessment and Plan Plan: 1 acute on chronic decompensated heart failure in a patient with known history of ischemic cardiomyopathy with an on combination of cardiac medications i ncluding diuretics in a form of Lasix, Aldactone and Zaroxolyn. 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 14 hyponatremia secondary to advanced cardiomyopathy Plan Continue Lasix 40 MG IV q 12 hour Dobutamine to be started at 2.5 mcg/kg per minute Start the patient on midodrine 5 mg by mouth 3 times a day Fluid restriction Input and output monitoring Hold Coreg and Entresto for now, also hold on Aldactone for now and hold and Shivam oxolyn for now Use norepinephrine infusion and keep the mean arterial pressure above 65. Currently norepinephrine infusion is running at 0.1 Shorty respiratory kilogram per minute. Monitor renal function Supplement oxygen to maintain a saturation above 90% Silvadene cream to the lower extremities along with some Lisandro wrap's DNR/DNI code
--- NOTE | 2020-12-30 12:08 | P.CRDCN ---
History of Present Illness Consult date: 12/30/20 History of present illness: HISTORY OF PRESENT ILLNESS: This is a 75-year-old male with a past medical history significant for ischemic cardiomyopathy with previous AICD, coronary artery disease with previous CABG, paroxysmal atrial fibrillation, congestive heart failure, hypertension, and hyperlipidemia. Patient follows in the office with Dr. Ortega. We have been asked to see the patient in consultation for CHF. Patient examined at the bedside. patient was hospitalized earlier this month for congestive heart failure. Patient states his Entresto was discontinued at that time due to mild hypotension. Patient states he has been taking all of his other medications. Patient presented to the hospital with a chief complaint of increasing lower extremity edema over the past week. patient denies having shortness of breath. Patient was found to be in heart failure upon presentation to the emergency room. Patient was started on IV Lasix drip at 10 mg an hour. Patient was also hypotensive and was placed on a Levophed drip and transferred to the intensive care unit. Patient denies chest pain or pressure. He denies shortness of b reath. EKG reveals sinus mechanism with right bundle branch block Chest xray on admission reveals CHF exacerbation with cardiomegaly and mild to moderate central vascular congestion. repeat chest x-ray reveals cardiomegaly with pulmonary venous congestion. No evidence for overt failure. Laboratory data: WBC 14.9. Hemoglobin 16.3. Platelet count 129. Sodium 124. Potassium 5.5. BUN 102. Creatinine 2.8. troponin 0.044. BNP 7790. Current home cardiac medications include Zaroxolyn 2.5 mg Tuesday and Tuesday, carvedilol 6.25 mg twice a day, Aldactone 25 mg daily, Entresto 24-26mg BID, Lasix 80 mg twice a day, Lipitor 10 mg daily, aspirin 81 mg daily and Eliquis 5 mg twice a day Most recent echocardiogram obtained on 12/11/2020 reveals ejection fraction less than 20%, [id number] mitral regurgitation, and mild tricuspid regurgitation. patient underwent Lexiscan in 2018 which was negative for reversible ischemia REVIEW OF SYSTEMS: At the time of my exam: CONSTITUTIONAL: Denies fever or chills. HEENT: Denies blurred vision, vision changes, or eye pain. Denies hemoptysis CARDIOVASCULAR: Denies chest pain. Denies orthopnea. Denies PND. Denies pal pitations RESPIRATORY: Denies shortness of breath. GASTROINTESTINAL: Denies abdominal pain. Denies nausea or vomiting. HEMATOLOGIC: Denies bleeding disorders. GENITOURINARY: Denies any blood in urine. SKIN: Denies pruitis. Denies rash. PHYSICAL EXAM: VITAL SIGNS: Reviewed. GENERAL: Well-developed in no acute distress. HEENT: Head is normocephalic. Pupils are equal, round. Sclerae anicteric. Mucous membranes of the mouth are moist. Neck supple. No JVD or thyromegaly LUNGS: Respirations even and unlabored. Lungs diminished bilaterally HEART: Regular rate and rhythm. S1 and S2 heard. systolic murmur noted. ABDOMEN: Soft. Nondistended. Nontender. EXTREMITIES: Normal range of motion. No clubbing or cyanosis. Peripheral pulses intact. 2-3+ lower bilateral lower extremity edema NEUROLOGIC: Awake and alert. Oriented x 3. ASSESSMENT: Acute exacerbation of chronic systolic heart failure, ejection fraction 20% Hypotension requiring vasopressor support Coronary artery disease with previous CABG Paroxysmal atrial fibrillation, on anticoagulation with Eliquis Ischemic cardiomyopathy with previous AICD Chronic kidney disease Hypertension Hyperlipidemia Morbid obesity: BMI 50.5 PLAN: No need to repeat echocardiogram as this was performed earlier this month Resume home cardiac medications Continue Eliquis Discontinue Coreg. Hold Entresto for now. Wean vasopressors as tolerated Discontinue lasix drip Begin Lasix 40mg IV q12 hours Begin dobutamine at 2.5 mg/kg/min Monitor kidney function Daily weights Accurate I&O Further recommendations pending patient course Nurse practitioner note has been reviewed by physician. Signing provider agrees with the documented findings, assessment, and plan of care. Past Medical History Past Medical History: Atrial Fibrillation, Heart Failure, Hyperlipidemia, Osteoarthritis (OA), Prostate Disorder, Sleep Apnea/CPAP/BIPAP, Thyroid Disorder Additional Past Medical History / Comment(s): uses oxygen @2l PRN, KATHRINE not using C PAP at home currently, occ lower leg edema. History of Any Multi-Drug Resistant Organisms: None Reported Past Surgical History: Adenoidectomy, Coronary Bypass/CABG, Heart Catheterization, Tonsillectomy Additional Past Surgical History / Comment(s): parathyroidectomy, cataract surg., cardiac cath. 10-16-15, AICD/Pacer Past Anesthesia/Blood Transfusion Reactions: No Reported Reaction Type of Cardiac Device: Permanent Pacemaker, AICD Device Placement Date:: 05/2018 Past Psychological History: No Psychological Hx Reported Smoking Status: Never smoker Past Alcohol Use History: None Reported Past Drug Use History: None Reported - Past Family History Father Family Medical History: Cancer Additional Family Medical History / Comment(s): Father had prostate cancer with mets to the bone. He at age 76 yrs. Medications and Allergies Home Medications Medication Instructions Recorded Confirmed Type Multivitamin [Men's Multi-Vitamin] 1 tab PO DAILY 07/18/15 12/29/20 History Spironolactone [Aldactone] 25 mg PO DAILY 07/18/15 12/29/20 History Sacubitril/Valsartan [Entresto 24 1 tab PO BID 04/27/18 12/29/20 History mg-26 mg Tablet] Apixaban [Eliquis] 5 mg PO BID 07/06/18 12/29/20 History carvediloL [Coreg*] 6.25 mg PO BID 07/06/18 12/29/20 History Aspirin EC [Ecotrin Low Dose] 81 mg PO BID 09/14/20 12/29/20 History Nystatin [Nystop] 1 applic TOPICAL BID 09/14/20 12/29/20 History Ascorbic Acid [Vitamin C] 500 mg PO BID 12/10/20 12/29/20 History Atorvastatin [Lipitor] 10 mg PO HS 12/10/20 12/29/20 History Docusate [Colace] 200 mg PO BID 12/10/20 12/29/20 History Furosemide [Lasix] 80 mg PO BID@1200,2100 12/10/20 12/29/20 History Nitroglycerin Sl Tabs [Nitrostat] 0.4 mg SL Q5M PRN 12/10/20 12/29/20 History Ondansetron Odt [Zofran ODT] 8 mg PO BID@0900,1300 12/10/20 12/29/20 History Pantoprazole Sodium [Protonix] 40 mg PO BID@0900,1300 12/10/20 12/29/20 History Polyethylene Glycol 3350 [Miralax] 34 gm PO DAILY 12/10/20 12/29/20 History Potassium Chloride [Klor-Con 20] 20 meq PO DAILY 12/10/20 12/29/20 History Sucralfate 1 gm PO ACHS PRN 12/10/20 12/29/20 History metOLazone [Zaroxolyn] 2.5 mg PO MOFR 12/10/20 12/29/20 History Allergies Allergy/AdvReac Type Severity Reaction Status Date / Time No Known Allergies Allergy Verified 12/29/20 14:58 Physical Exam Vitals: Vital Signs Temp Pulse Resp BP Pulse Ox 12/30/20 11:00 71 16 99/54 98 12/30/20 10:30 70 18 93/53 97 12/30/20 10:00 69 17 99/59 93 L 12/30/20 09:30 69 18 87/49 94 L 12/30/20 09:00 69 15 89/55 96 12/30/20 08:30 69 23 91/46 93 L 12/30/20 08:00 97.7 F 71 14 82/42 96 12/30/20 07:30 72 17 85/42 83 L 12/30/20 07:00 70 15 79/57 95 12/30/20 06:45 78 16 84/45 96 12/30/20 06:30 70 12 79/42 95 12/30/20 06:00 70 20 89/54 94 L 12/30/20 05:30 69 15 81/55 95 12/30/20 05:00 68 21 90/76 96 12/30/20 04:30 69 10 L 74/60 98 12/30/20 04:00 97.9 F 78 16 90/78 95 12/30/20 03:30 71 18 86/50 95 12/30/20 03:00 70 16 85/41 96 12/30/20 02:30 70 18 83/39 97 12/30/20 02:00 70 17 108/93 96 12/30/20 01:30 104 H 16 98/78 93 L 12/30/20 01:00 106 H 11 L 82/68 96 12/30/20 00:30 105 H 18 75/49 95 12/30/20 00:00 98.0 F 105 H 18 84/62 95 12/29/20 23:30 106 H 16 88/49 96 12/29/20 23:00 97 20 78/51 96 12/29/20 22:30 103 H 92/51 93 L 12/29/20 22:00 105 H 17 86/67 96 12/29/20 21:45 105 H 14 86/67 94 L 12/29/20 21:30 87 15 86/67 96 12/29/20 21:15 98 82/53 95 12/29/20 21:07 20 12/29/20 21:00 98 12 88/45 97 12/29/20 20:45 70 85/36 97 12/29/20 20:30 97.0 F L 100 88/50 97 12/29/20 20:15 103 H 21 83/60 92 L 12/29/20 17:00 70 20 96/56 99 12/29/20 16:51 97.8 F 12/29/20 14:58 70 22 74/56 95 Intake and Output 12/29/20 12/30/20 12/30/20 22:59 06:59 14:59 Intake Total 63.667 438.905 230.003 Output Total 1000 1250 1360 Balance -936.333 -811.095 -1129.997 Intake: Intake, IV Titration 63.667 188.905 230.003 Amount Furosemide 100 mg In 63.667 Sodium Chloride 0.9% 90 ml @ 10 MG/HR 10 mls/hr IV .Q10H [facility] Rx#: [id number] Norepinephrine 4 mg In 188.905 230.003 Sodium Chloride 0.9% 250 ml @ 0.05 MCG/KG/MIN 28. 083 mls/hr IV .Q9H3M [facility] Rx#:[id number] Oral 250 Output: Urine 1000 1250 1360 Other: Voiding Method Indwelling Catheter Indwelling Catheter Indwelling Catheter Weight 164.2 kg 164.2 kg 164.2 kg Results 12/30/20 03:31 12/30/20 03:20 Cardiac Enzymes 12/29/20 12/29/20 12/30/20 Range/Units 12:27 12:27 03:20 AST 29 31 (17-59) U/L Troponin I 0.044 H* (0.000-0.034) ng/mL Coagulation 12/29/20 Range/Units 12:27 PT 12.4 H (9.0-12.0) sec APTT 28.5 (22.0-30.0) sec CBC 12/29/20 12/30/20 Range/Units 12:27 03:31 WBC 7.8 14.9 H (3.8-10.6) k/uL RBC 4.76 5.33 (4.30-5.90) m/uL Hgb 14.8 16.3 (13.0-17.5) gm/dL Hct 44.1 49.9 (39.0-53.0) % Plt Count 105 L 129 L (150-450) k/uL Comprehensive Metabolic Panel 12/29/20 12/30/20 Range/Units 12:27 03:20 Sodium 125 L 124 L (137-145) mmol/L Potassium 5.5 H 5.5 H (3.5-5.1) mmol/L Chloride 89 L 89 L (98-107) mmol/L Carbon Dioxide 29 27 (22-30) mmol/L BUN 108 H* 102 H* (9-20) mg/dL Creatinine 3.54 H 2.80 H (0.66-1.25) mg/dL Glucose 117 H 165 H (74-99) mg/dL Calcium 8.3 L 8.7 (8.4-10.2) mg/dL AST 29 31 (17-59) U/L ALT 51 H 49 (4-49) U/L Alkaline Phosphatase 209 H 201 H (38-126) U/L Total Protein 5.0 L 5.4 L (6.3-8.2) g/dL Albumin 2.6 L 2.8 L (3.5-5.0) g/dL Current Medications Generic Name Dose Route Start Last Admin Trade Name Freq PRN Reason Stop Dose Admin Acetaminophen 650 mg 12/30/20 00:40 12/30/20 00:55 Acetaminophen Tab 325 Mg Tab PO 650 mg Q6HR PRN Administration Fever and/ or Pain Apixaban 2.5 mg 12/30/20 11:00 Apixaban 2.5 Mg Tablet PO BID [facility] Ascorbic Acid 500 mg 12/29/20 21:00 12/30/20 08:57 Ascorbic Acid 500 Mg Tab PO 500 mg BID [facility] Administration Aspirin 81 mg 12/29/20 21:00 12/30/20 08:57 Aspirin 81 Mg PO 81 mg BID [facility] Administration Atorvastatin Calcium 10 mg 12/29/20 21:00 12/29/20 21:26 Atorvastatin 10 Mg Tab PO 10 mg HS [facility] Administration Furosemide 40 mg 12/30/20 21:00 Furosemide 10 Mg/Ml 10 Ml Vial IV Q12HR [facility] Norepinephrine Bitartrate 4 mg 254 mls @ 28.083 mls/hr 12/29/20 20:45 12/30/20 08:39 / Sodium Chloride IV 0.1 mcg/kg/min .Q9H3M [facility] 56.166 mls/hr Administration Protocol 0.05 MCG/KG/MIN Dobutamine HCl/Dextrose 500 mg 250 mls @ 12.315 mls/hr 12/30/20 09:30 12/30/20 10:06 / IV Solution IV 2.5 mcg/kg/min .[id number] [facility] 12.315 mls/hr Administration 2.5 MCG/KG/MIN Melatonin 6 mg 12/30/20 00:40 12/30/20 00:55 Melatonin 3 Mg Tablet PO 6 mg HS [facility] Administration Midodrine 5 mg 12/30/20 12:30 Midodrine 5 Mg Tab PO AC-TID [facility] Naloxone HCl 0.2 mg 12/29/20 14:21 Naloxone 0.4 Mg/Ml 1 Ml Vial IV Q2M PRN Opioid Reversal Nitroglycerin 0.4 mg 12/29/20 17:50 Nitroglycerin Sl Tabs 0.4 Mg Tab SUBLINGUAL Q5M PRN Chest Pain Nystatin 1 applic 12/29/20 21:00 12/30/20 08:43 Nystatin 100,000 Unit/Gm Powd 15 Gm TOPICAL Not Given BID [facility] Ondansetron HCl 4 mg 12/30/20 05:09 12/30/20 05:33 Ondansetron 4 Mg/2 Ml Vial IVP 4 mg Q6HR PRN Administration Nausea And Vomiting Pantoprazole Sodium 40 mg 12/30/20 07:30 12/30/20 05:11 Pantoprazole 40 Mg Tablet PO 40 mg BID@0730,1730 [facility] Administration Polyethylene Glycol 34 gm 12/30/20 09:00 12/30/20 08:53 Polyethylene Glycol 3350 17 Gm Powd.Pack PO Not Given DAILY [facility] Silver Sulfadiazine 1 applic 12/30/20 11:30 Silver Sulfadiazine 1% Cream 25 Gm Tube TOPICAL DAILY [facility] Intake and Output 12/29/20 12/30/20 12/30/20 22:59 06:59 14:59 Intake Total 63.667 438.905 230.003 Output Total 1000 1250 1360 Balance -936.333 -811.095 -1129.997 Intake: Intake, IV Titration 63.667 188.905 230.003 Amount Furosemide 100 mg In 63.667 Sodium Chloride 0.9% 90 ml @ 10 MG/HR 10 mls/hr IV .Q10H [facility] Rx#: [id number] Norepinephrine 4 mg In 188.905 230.003 Sodium Chloride 0.9% 250 ml @ 0.05 MCG/KG/MIN 28. 083 mls/hr IV .Q9H3M [facility] Rx#:[id number] Oral 250 Output: Urine 1000 1250 1360 Other: Voiding Method Indwelling Catheter Indwelling Catheter Indwelling Catheter Weight 164.2 kg 164.2 kg 164.2 kg Patient Weight 12/31/20 06:59 Weight 164.2 kg 12/30/20 03:31 12/30/20 03:20
[2020-12-30] MEDS: MIDODRINE 5 MG TAB PO SCH ×2 (12:17→17:07)
[2020-12-30] MEDS: APIXABAN 2.5 MG TABLET PO SCH ×2 (12:17→20:42)
[2020-12-30 12:57] LABS: Glucose,Whole Blood 296 mg/dL (75-99)
[2020-12-30] MEDS: INSULIN ASPART (NovoLOG) 100 UNIT/ML VIAL SQ SCH ×3 (13:01→20:49)
[2020-12-30 16:55] LABS: Glucose,Whole Blood 137 mg/dL (75-99)
--- NOTE | 2020-12-30 20:04 | P.PN ---
Progress Note - Text Progress Note Date: 12/30/20 Chief Complaint: Edema with blisters lower extremity History of presenting complaint: This is a 75-year-old patient of Dr. Romero Jacobs. 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 Chronic stable medical conditions include atrial fibrillation, osteoarthritis, hyperlipidemia, prostate disorder, obstructive sleep apnea does not use CPAP, hypothyroid, coronary artery disease with bypass. Does have a walker at home. Patient was recently hospitalized with acute congestive heart exacerbation and acute kidney injury felt to be cardiorenal syndrome. Was put on a Lasix drip. To which it responded well. Patient now presents with increasing lower extremity swelling. Blisters. Redness in the groin area. Denies any fever and chills. Appetite is fair. Baseline shortness of breath. I daughter to Lasix drip on the patient. Patient's blood pressure dropped to about 70 systolic. Patient smoked in ICU. Manager [facility] nephrology cardiology was consulted. Admitted with acute CHF exacerbation from systolic dysfunction EF less than 20%, acute kidney injury from prerenal from cardiorenal syndrome, intertriginous ezra infection of the groin severe, Cardizem and shock. Patient is put on IV Lasix drip, dobutamine, levo fed. Admitted to the ICU Today: Laying in bed, patient's Lozada catheter is bothering him. ate on his lunch. Good urine output. Patient currently on IV Lasix drip, dobutamine, levo fed. Awake Review of systems: Was done for constitutional, cardiovascular, GI, pulmonary. relevant finding as above Active Medications Acetaminophen (Acetaminophen Tab 325 Mg Tab) 650 mg PO Q6HR PRN PRN Reason: Fever and/ or Pain Last Admin: 12/30/20 12:16 Dose: 650 mg Documented by: Apixaban (Apixaban 2.5 Mg Tablet) 2.5 mg PO BID [facility] Last Admin: 12/30/20 12:17 Dose: 2.5 mg Documented by: Ascorbic Acid (Ascorbic Acid 500 Mg Tab) 500 mg PO BID [facility] Last Admin: 12/30/20 08:57 Dose: 500 mg Documented by: Aspirin (Aspirin 81 Mg) 81 mg PO BID [facility] Last Admin: 12/30/20 08:57 Dose: 81 mg Documented by: Atorvastatin Calcium (Atorvastatin 10 Mg Tab) 10 mg PO HS [facility] Last Admin: 12/29/20 21:26 Dose: 10 mg Documented by: Furosemide (Furosemide 10 Mg/Ml 10 Ml Vial) 40 mg IV Q12HR [facility] Norepinephrine Bitartrate 4 mg (/ Sodium Chloride) 254 mls @ 28.083 mls/hr IV .Q9H3M [facility]; Protocol Last Admin: 12/30/20 17:22 Dose: 0.1 mcg/kg/min, 56.166 mls/hr Documented by: Dobutamine HCl/Dextrose 500 mg (/ IV Solution) 250 mls @ 12.315 mls/hr IV .[id number] [facility] Last Admin: 12/30/20 10:06 Dose: 2.5 mcg/kg/min, 12.315 mls/hr Documented by: Insulin Aspart (Insulin Aspart (Novolog) 100 Unit/Ml Vial) 0 unit SQ ACHS [facility]; Protocol Last Admin: 12/30/20 17:06 Dose: 1 unit Documented by: Melatonin (Melatonin 3 Mg Tablet) 6 mg PO HS [facility] Last Admin: 12/30/20 00:55 Dose: 6 mg Documented by: Midodrine (Midodrine 5 Mg Tab) 5 mg PO AC-TID [facility] Last Admin: 12/30/20 17:07 Dose: 5 mg Documented by: Naloxone HCl (Naloxone 0.4 Mg/Ml 1 Ml Vial) 0.2 mg IV Q2M PRN PRN Reason: Opioid Reversal Nitroglycerin (Nitroglycerin Sl Tabs 0.4 Mg Tab) 0.4 mg SUBLINGUAL Q5M PRN PRN Reason: Chest Pain Nystatin (Nystatin 100,000 Unit/Gm Powd 15 Gm) 1 applic TOPICAL BID [facility] Last Admin: 12/30/20 08:43 Dose: Not Given Documented by: Ondansetron HCl (Ondansetron 4 Mg/2 Ml Vial) 4 mg IVP Q6HR PRN PRN Reason: Nausea And Vomiting Last Admin: 12/30/20 05:33 Dose: 4 mg Documented by: Pantoprazole Sodium (Pantoprazole 40 Mg Tablet) 40 mg PO BID@0730,1730 [facility] Last Admin: 12/30/20 17:07 Dose: 40 mg Documented by: Polyethylene Glycol (Polyethylene Glycol 3350 17 Gm Powd.Pack) 34 gm PO DAILY [facility] Last Admin: 12/30/20 08:53 Dose: Not Given Documented by: Silver Sulfadiazine (Silver Sulfadiazine 1% Cream 25 Gm Tube) 1 applic TOPICAL DAILY [facility] Last Admin: 12/30/20 13:06 Dose: 1 applic Documented by: Past medical history to include: Atrial fibrillation, CHF, hyperlipidemia, osteoarthritis, prostate disorder, obstructive sleep apnea does not use CPAP, home oxygen 2 L when necessary, coronary artery disease with bypass, thyroidectomy, permanent pacemaker with AICD Social history: Lives with his granddaughter. Does use a walker/cane. Patient quit daily using a pipe 40 years ago. No alcohol. Physical examination: VITAL SIGNS: 97.9, 70, 18, 91/53, 97% room air GENERAL:, reclining in bed, some short of breath EYES: Pupils equal. Conjunctiva normal. NECK: JVD unable to assess; masses not palpable. HEART: Distant heart sounds; significant edema. LUNGS: Respiratory rate increased; decreased breath sounds ABDOMEN: Soft, nontender, liver spleen not palpable, no masses palpable. DERMATOLOGICAL: Redness skin both the groin folds , with breakdown of skin PSYCH: Alert and oriented x3; mood and affect normal. MUSCULAR skeletal: Evidence of OA INVESTIGATIONS, reviewed in the clinical context: December 30: WBC 14.9 hemoglobin 16.3 platelets 129 sodium 124 potassium 5.5 bun 102 creatinine 2.8 WBC 7.8 hemoglobin 14.8 platelets 105 potassium 5.5 bun 108 creatinine 3.54 troponin I 0.044 albumin 2.6 Coronavirus [PCR-not detected EKG tracing personally reviewed by me-right bundle branch block Chest x-ray film personally reviewed by me-cardiomegaly pulmonary edema 2-D echocardiogram [12/11/2020 dose packet: Moderate concentric LVH, EF less than 20% moderate mitral regurgitation Recent visual ultrasound: No evidence of renal mass obstruction. Exam limited because of patient's size from December 12. Assessment and plan: -Acute on chronic congestive heart failure exacerbation, from systolic dysfunction. EF less than 20%-slow to respond Lasix drip 10 mg an hour-discontinued. Strict I's and O's. Fluid restriction. Lasix 40 mg IV every 12 -Acute kidney injury likely prerenal from cardiorenal syndrome-slow to respond On Lasix drip. -Paroxysmal atrial fibrillation, currently in sinus rhythm -Intertriginous ezra infection of bilateral groin -severe Topical nystatin powder -AICD -Hyperlipidemia- Continue Lipitor -Chronic insomnia -, multifactorial continue melatonin -Primary osteoarthritis, use Tylenol when necessary -BPH Lozada catheter placed for strict I's and O's -Obstructive sleep apnea patient does not use CPAP -Morbid obesity BMI 50.5. Weight loss measures and follow-up with dietitian and PCP -Coronary artery disease with a history of coronary bypass Continue with aspirin, beta fior -GERD continue omeprazole -Cardiogenic shock, with hypotension-slow to respond Dobutamine drip and levo fed. Hold Entresto. -Hyperkalemia secondary to kidney failure Follow electrolytes -Hyponatremia from significant diuresis Follow closely -DO NOT RESUSCITATE Patient ICU. Having been bothered by his Lozada catheter. Which will be discontinued. She is able to use a hand-held bottle. IV Lasix 40 mg every 12. Drips include-levo fed, dobutamine Advanced care planning: Discussion was held with the patient at length. Also spoke to patient's daughter at length. Patient does not want to be in the current state of affairs. The looking into hospice now. I did put in a informational consultation for hospice house. Had a lengthy discussion with the patient and the daughter regarding using IV diuretics plus making the patient comfortable. This may take another 24-48 hours and depending on the urine output clinical status was then decide about patient going to the hospice house. Several other questions were answered. Sudden in this situation is entirely possible from arrhythmia. Was explained 20 minutes was spent for this today.
[2020-12-30] MEDS: FUROSEMIDE 10 MG/ML 10 ML VIAL IV SCH (20:42)
[2020-12-30] MEDS: ATORVASTATIN 10 MG TAB PO SCH (20:42)
[2020-12-30 20:59] LABS: Glucose,Whole Blood 167 mg/dL (75-99)
[2020-12-31] MEDS: NOREPINEPHRINE 4 MG in SODIUM CHLORIDE 0.9% 250 ML IV SCH (01:27)
[2020-12-31 04:56] LABS: Anisocytosis Slight; Basophils % (A) 0 %; Eosinophils # (A) 0.2 k/uL (0-0.7); Eosinophils % (A) 2 %; HCT 45.2 % (39.0-53.0); HGB 15.2 gm/dL (13.0-17.5); Lymphocytes # (A) 0.5 k/uL (1.0-4.8); Lymphocytes % (A) 4 %; MCH 31.1 pg (25.0-35.0); MCHC 33.6 g/dL (31.0-37.0); MCV 92.7 fL (80.0-100.0); Mean Platelet Volume 7.4; Monocytes # (A) 0.6 k/uL (0-1.0); Monocytes % (A) 5 %; Neutrophils # (A) 11.2 k/uL (1.3-7.7); Neutrophils % (A) 89 %; Platelet Count 124 k/uL (150-450); RBC 4.87 m/uL (4.30-5.90); RDW 16.5 % (11.5-15.5); WBC 12.6 k/uL (3.8-10.6)
[2020-12-31 05:25] LABS: Albumin 2.7 g/dL (3.5-5.0); Calcium 8.6 mg/dL (8.4-10.2); Potassium 4.5 mmol/L (3.5-5.1); Total Protein 5.3 g/dL (6.3-8.2)
[2020-12-31 07:04] LABS: Glucose,Whole Blood 183 mg/dL (75-99)
[2020-12-31] MEDS: PANTOPRAZOLE 40 MG TABLET PO SCH (07:12)
[2020-12-31] MEDS: INSULIN ASPART (NovoLOG) 100 UNIT/ML VIAL SQ SCH ×2 (07:12→13:16)
[2020-12-31] MEDS: MIDODRINE 5 MG TAB PO SCH ×2 (07:12→13:17)
[2020-12-31] MEDS: DOBUTamine DRIP 500 MG in DEXTROSE/WATER 1 250ML.BAG IV SCH ×2 (07:54→09:11)
[2020-12-31] MEDS: ASPIRIN 81 MG PO SCH (09:15)
[2020-12-31] MEDS: ASCORBIC ACID 500 MG TAB PO SCH (09:15)
[2020-12-31] MEDS: APIXABAN 2.5 MG TABLET PO SCH (09:15)
[2020-12-31] MEDS: FUROSEMIDE 10 MG/ML 10 ML VIAL IV SCH (09:15)
[2020-12-31] MEDS: NYSTATIN 100,000 UNIT/GM POWD 15 GM TOPICAL SCH (09:15)
[2020-12-31] MEDS: polyethylene glycoL 3350 17 GM POWD.PACK PO SCH (09:19)
[2020-12-31 09:39] VITALS: TEMP 98.1
--- NOTE | 2020-12-31 10:20 | P.PN ---
Subjective Progress Note Date: 12/31/20 HISTORY OF PRESENT ILLNESS: This is a 75-year-old male with a past medical history significant for ischemic cardiomyopathy with previous AICD, coronary artery disease with previous CABG, paroxysmal atrial fibrillation, congestive heart failure, hypertension, and hyperlipidemia. Patient follows in the office with Dr. Ortega. We have been asked to see the patient in consultation for CHF. Patient examined at the bedside. patient was hospitalized earlier this month for congestive heart failure. Patient states his Entresto was discontinued at that time due to mild hypotension. Patient states he has been taking all of his other medications. Patient presented to the hospital with a chief complaint of increasing lower extremity edema over the past week. patient denies having shortness of breath. Patient was found to be in heart failure upon presentation to the emergency room. Patient was started on IV Lasix drip at 10 mg an hour. Patient was also hypotensive and was placed on a Levophed drip and transferred to the intensive care unit. Patient denies chest pain or pressure. He denies shortness of breath. EKG reveals sinus mechanism with right bundle branch block Chest xray on admission reveals CHF exacerbation with cardiomegaly and mild to moderate central vascular congestion. repeat chest x-ray reveals cardiomegaly with pulmonary venous congestion. No evidence for overt failure. Laboratory data: WBC 14.9. Hemoglobin 16.3. Platelet count 129. Sodium 124. Potassium 5.5. BUN 102. Creatinine 2.8. troponin 0.044. BNP 7790. Current home cardiac medications include Zaroxolyn 2.5 mg Tuesday and Tuesday, carvedilol 6.25 mg twice a day, Aldactone 25 mg daily, Entresto 24-26mg BID, Lasix 80 mg twice a day, Lipitor 10 mg daily, aspirin 81 mg daily and Eliquis 5 mg twice a day Most recent echocardiogram obtained on 12/11/2020 reveals ejection fraction less than 20%, [id number] mitral regurgitation, and mild tricuspid regurgitation. patient underwent Lexiscan in 2018 which was negative for reversible ischemia 12/31/2020 Patient examined this morning at the bedside. He remains in intensive care unit. He remains on Levophed for vasopressor support. He is also on dobutamine at 2.5mcg/kg/min. patient is on IV Lasix 40 mg every 12 hours. Patient states he has been urinating frequently. He denies any shortness of breath. He reports improvement to his lower extremity edema. Telemetry reveals paced rhythm. Patient is currently a DO NOT RESUSCITATE and is being discharged today to [facility] PHYSICAL EXAM: VITAL SIGNS: Reviewed. GENERAL: Well-developed in no acute distress. HEENT: Head is normocephalic. Pupils are equal, round. Sclerae anicteric. Mucous membranes of the mouth are moist. Neck supple. No JVD or thyromegaly LUNGS: Respirations even and unlabored. Lungs diminished bilaterally HEART: Regular rate and rhythm. S1 and S2 heard. systolic murmur noted. ABDOMEN: Soft. Nondistended. Nontender. EXTREMITIES: Normal range of motion. No clubbing or cyanosis. Peripheral pulses intact. 2-3+ lower bilateral lower extremity edema NEUROLOGIC: Awake and alert. Oriented x 3. ASSESSMENT: Acute exacerbation of chronic systolic heart failure, ejection fraction 20% Hypotension requiring vasopressor support Coronary artery disease with previous CABG Paroxysmal atrial fibrillation, on anticoagulation with Eliquis Ischemic cardiomyopathy with previous AICD Chronic kidney disease Hypertension Hyperlipidemia Morbid obesity: BMI 50.5 PLAN: Patient to be discharged to [facility] today. Continue current medications until discharge. Nurse practitioner note has been reviewed by physician. Signing provider agrees with the documented findings, assessment, and plan of care. Objective - Vital Signs Vital signs: Vital Signs Temp 98.1 F 12/31/20 08:00 Pulse 96 12/31/20 09:30 Resp 19 12/31/20 09:30 BP 101/75 12/31/20 09:30 Pulse Ox 97 12/31/20 09:30 Intake & Output 12/30/20 12/31/20 12/31/20 18:59 06:59 18:59 Intake Total 864.504 0532.601 165.804 Output Total 3020 750 650 Balance -2129.204 653.601 -484.196 Weight 164.2 kg 162.6 kg Intake: Intake, IV Titration 660.796 603.601 15.804 Amount DOBUTamine DRIP 500 mg In 250 15.804 Dextrose/Water 1 250ml. bag @ 2.5 MCG/KG/MIN 12. 315 mls/hr IV .[id number] [facility] Rx#:[id number] Norepinephrine 4 mg In 660.796 353.601 Sodium Chloride 0.9% 250 ml @ 0.05 MCG/KG/MIN 28. 083 mls/hr IV .Q9H3M [facility] Rx#:[id number] Oral 230 800 150 Output: Urine 3020 750 650 Other: Voiding Method Indwelling Catheter Indwelling Catheter # Voids 1 # Bowel Movements 1 - Labs CBC & Chem 7: 12/31/20 04:35 12/31/20 04:35 Labs: Abnormal Lab Results - Last 24 Hours (Table) 12/30/20 12/30/20 12/30/20 Range/Units 12:55 16:54 20:47 WBC (3.8-10.6) k/uL RDW (11.5-15.5) % Plt Count (150-450) k/uL Neutrophils # (1.3-7.7) k/uL Lymphocytes # (1.0-4.8) k/uL Sodium (137-145) mmol/L Chloride (98-107) mmol/L BUN (9-20) mg/dL Creatinine (0.66-1.25) mg/dL Glucose (74-99) mg/dL POC Glucose (mg/dL) 296 H 137 H 167 H (75-99) mg/dL Total Bilirubin (0.2-1.3) mg/dL Alkaline Phosphatase (38-126) U/L Total Protein (6.3-8.2) g/dL Albumin (3.5-5.0) g/dL 12/31/20 12/31/20 12/31/20 Range/Units 04:35 04:35 07:01 WBC 12.6 H (3.8-10.6) k/uL RDW 16.5 H (11.5-15.5) % Plt Count 124 L (150-450) k/uL Neutrophils # 11.2 H (1.3-7.7) k/uL Lymphocytes # 0.5 L (1.0-4.8) k/uL Sodium 128 L (137-145) mmol/L Chloride 93 L (98-107) mmol/L BUN 88 H (9-20) mg/dL Creatinine 1.97 H (0.66-1.25) mg/dL Glucose 164 H (74-99) mg/dL POC Glucose (mg/dL) 183 H (75-99) mg/dL Total Bilirubin 2.0 H (0.2-1.3) mg/dL Alkaline Phosphatase 169 H (38-126) U/L Total Protein 5.3 L (6.3-8.2) g/dL Albumin 2.7 L (3.5-5.0) g/dL
--- NOTE | 2020-12-31 11:05 | P.PN ---
Subjective Patient is seen in follow-up for acute kidney injury on chronic kidney disease. Renal function improving. Maintained on dobutamine drip and IV Lasix. Nonoliguric. Patient wishes to to be discharged with hospice. Vital signs are stable. General: The patient appeared well nourished and normally developed. HEENT: Head exam is unremarkable. Neck is without jugular venous distension. LUNGS: Breath sounds decreased. HEART: Rate and Rhythm are regular. ABDOMEN: Soft, obese. EXTREMITITES: 2+ edema. Objective - Vital Signs Vital signs: Vital Signs Temp 98.1 F 12/31/20 08:00 Pulse 104 H 12/31/20 10:30 Resp 17 12/31/20 10:30 BP 99/66 12/31/20 10:30 Pulse Ox 95 12/31/20 10:30 Intake & Output 12/30/20 12/31/20 12/31/20 18:59 06:59 18:59 Intake Total 007.079 5838.601 165.804 Output Total 3020 750 650 Balance -2129.204 653.601 -484.196 Weight 164.2 kg 162.6 kg Intake: Intake, IV Titration 660.796 603.601 15.804 Amount DOBUTamine DRIP 500 mg In 250 15.804 Dextrose/Water 1 250ml. bag @ 2.5 MCG/KG/MIN 12. 315 mls/hr IV .[id number] [facility] Rx#:[id number] Norepinephrine 4 mg In 660.796 353.601 Sodium Chloride 0.9% 250 ml @ 0.05 MCG/KG/MIN 28. 083 mls/hr IV .Q9H3M [facility] Rx#:[id number] Oral 230 800 150 Output: Urine 3020 750 650 Other: Voiding Method Indwelling Catheter Indwelling Catheter # Voids 1 # Bowel Movements 1 - Labs CBC & Chem 7: 12/31/20 04:35 12/31/20 04:35 Labs: Abnormal Lab Results - Last 24 Hours (Table) 12/30/20 12/30/20 12/30/20 Range/Units 12:55 16:54 20:47 WBC (3.8-10.6) k/uL RDW (11.5-15.5) % Plt Count (150-450) k/uL Neutrophils # (1.3-7.7) k/uL Lymphocytes # (1.0-4.8) k/uL Sodium (137-145) mmol/L Chloride (98-107) mmol/L BUN (9-20) mg/dL Creatinine (0.66-1.25) mg/dL Glucose (74-99) mg/dL POC Glucose (mg/dL) 296 H 137 H 167 H (75-99) mg/dL Total Bilirubin (0.2-1.3) mg/dL Alkaline Phosphatase (38-126) U/L Total Protein (6.3-8.2) g/dL Albumin (3.5-5.0) g/dL 12/31/20 12/31/20 12/31/20 Range/Units 04:35 04:35 07:01 WBC 12.6 H (3.8-10.6) k/uL RDW 16.5 H (11.5-15.5) % Plt Count 124 L (150-450) k/uL Neutrophils # 11.2 H (1.3-7.7) k/uL Lymphocytes # 0.5 L (1.0-4.8) k/uL Sodium 128 L (137-145) mmol/L Chloride 93 L (98-107) mmol/L BUN 88 H (9-20) mg/dL Creatinine 1.97 H (0.66-1.25) mg/dL Glucose 164 H (74-99) mg/dL POC Glucose (mg/dL) 183 H (75-99) mg/dL Total Bilirubin 2.0 H (0.2-1.3) mg/dL Alkaline Phosphatase 169 H (38-126) U/L Total Protein 5.3 L (6.3-8.2) g/dL Albumin 2.7 L (3.5-5.0) g/dL Assessment and Plan Plan: Assessment: 1. Acute kidney injury mostly prerenal secondary to hypotension and cardiorenal syndrome. Creatinine was 3.5 on admission is 1.97 today. No proteinuria on UA. Ultrasound from earlier this month reveals no evidence of hydronephrosis. 2. Chronic kidney disease stage IIIB with baseline creatinine in the range of 1.62 from earlier this month. Prior to that the creatinine was 1-1.2 in September 2020. 3. Acute on chronic systolic CHF with ejection fraction of less than 20%. 4. Volume overload. 5. Hypervolemic hyponatremia. Better. 6. Mild hyperkalemia secondary to acute kidney injury. Improved with diuresis. Plan: Maintain dobutamine drip and IV Lasix. Wean Levophed. Maintain midodrine. 1200 mL fluid restriction. Continue to monitor renal function and urine output. Patient wishes to to be discharged with hospice. Demadex 40 mg twice a day upon discharge.
--- NOTE | 2020-12-31 11:24 | P.PN ---
Subjective Progress Note Date: 12/31/20 75-year-old male patient with known history of ischemic cardiomyopathy with an ejection fraction of less than 20%, post AICD placement, known history of coronary artery disease with a previous coronary artery bypass surgery, paroxysmal atrial fibrillation, hypertension and hyperlipidemia who was recently in hospital in early December 2020 for decompensated heart failure. Note that his earlier hospitalization was in September 2020 for the same. he was receiving a combination of diuretics including Lasix and Zaroxolyn. He came in with worsening shortness of breath and he was treated accordingly and he was discharged home on 12/15/2020 with a combination of medication including Zaroxolyn 2.5 mg Mondays and Fridays, Aldactone 25 mg by mouth daily, Coreg 12.5 mg by mouth twice a day, Entresto 2426 one tablet twice a day, Lasix 80 mg by mouth twice a day. He was also placed on Revatio 20 mg by mouth daily, long- term anticoagulation with Eliquis 2.5 mg by mouth twice a day. . Note that during earlier hospitalizations, the patient's creatinine has been fluctuating. The patient had developed an acute kidney injury due to cardiorenal syndrome. Note that the patient is morbidly obese and has BPH and degenerative arthritis and other comorbidities. The patient came back to the hospital on 12/29/2020 because of worsening shortness of breath and fluid overloadretention. Denies any chest pain. No palpitations. No syncope. No nausea. No vomiting. No diarrhea. No abdominal pain. He was afebrile. BP initially was 121/90 and the patient had a sodium level of 125 with a potassium of 5.5 with a chloride of 89 and a BUN of 108 and a creatinine of 3.4. Coagulation profile was within normal limits. Liver function tests were normal, his proBNP level was 7790, troponin was at 0.044, EK G showed paced rhythm. Chest x-ray was consistent with post thoracotomy scar over the anterior chest and the patient has cardiomegaly and mild to moderate central vascular congestion demonstrated. He was hospitalized for heart failure. He was placed on Lasix drip at 10 mg an hour. Subsequently he got transferred to the intensive care because of intraoperative blood pressure with a systolic blood pressure dropped down to 74/56 and subsequently came up to 96/56. No tachypnea. Room air pulse ox was 96%. Did not require any pressors. COVID-19 testing was negative. Overnight, the patient was brought into the intensive care unit. The patient was started on norepinephrine infusion and the dose was titrated to maintain a mean arterial pressure above 65. Currently norepinephrine is running at 0.1 g respiratory program per minute. He was also started on dobutamine at 2.5 Shorty respiratory program per minute. He is on Lasix currently on 40 mg IV every 12 hours and the patient was taken off this Lasix drip. Neck fluid balance is -1.7 L over the past 24 hours. Renal function is improving and the creatinine is down to 2.6. He is awake and alert. He is currently off oxygen and he is on room air. No angina. No palpitations. No other issues otherwise for now. On 12/31/2020 patient seen in follow-up in the intensive care unit, he is awake and alert, oriented 3, she is on room air, with pulse ox of 97%, breathing comfortably, denies any chest pain, denies any cough, phlegm production, denies any worsening dyspnea. He is in atrial fibrillation, with a rate of 106 BPM. Patient is on dobutamine at 2.5 per kilo per minute, and she also remains on levo fed is 0.1 mics per kilo per minute. He remains on Lasix at 40 mg twice daily, and she is in negative fluid balance of 1.4 L over the last 24 hours, today's labs have been reviewed showing improvement in patient's renal function, and his creatinine is down to 1.97 from 2.8 on yesterday's labs, B1 is down to 88 from 102 from yesterday, sodium is slightly improved, and up to 128 from 124, potassium is 4.5, chloride is 93, CO2 concentration is 28 on today's labs. Alkaline phosphatase is also down to 169, ALT and AST are within normal limits. White blood cell count is soft 0.6, hemoglobin is 15.2. No nausea vomiting or diarrhea, patient is tolerating oral intake. Abdomen is soft. As chest x-ray was yesterday showing a megaly with pulmonary venous congestion. Patient and his family have made a decision to enroll in palliative care and hospice, and patient is anxious to go to the hospice facility at [facility] possibly today. Objective - Vital Signs Vital signs: Vital Signs Temp 98.1 F 12/31/20 08:00 Pulse 104 H 12/31/20 10:30 Resp 17 12/31/20 10:30 BP 99/66 12/31/20 10:30 Pulse Ox 95 12/31/20 10:30 Intake & Output 12/30/20 12/31/20 12/31/20 18:59 06:59 18:59 Intake Total 452.598 1051.601 165.804 Output Total 3020 750 650 Balance -2129.204 653.601 -484.196 Weight 164.2 kg 162.6 kg Intake: Intake, IV Titration 660.796 603.601 15.804 Amount DOBUTamine DRIP 500 mg In 250 15.804 Dextrose/Water 1 250ml. bag @ 2.5 MCG/KG/MIN 12. 315 mls/hr IV .[id number] [facility] Rx#:[id number] Norepinephrine 4 mg In 660.796 353.601 Sodium Chloride 0.9% 250 ml @ 0.05 MCG/KG/MIN 28. 083 mls/hr IV .Q9H3M [facility] Rx#:[id number] Oral 230 800 150 Output: Urine 3020 750 650 Other: Voiding Method Indwelling Catheter Indwelling Catheter # Voids 1 # Bowel Movements 1 - Exam Morbidly obese, comfortable likely distress currently on room air oxygen Head exam was generally normal. There was no scleral icterus or corneal arcus. Mucous membranes were moist. Neck was supple and without jugular venous distension, thyromegaly, or carotid bruits. Carotids were easily palpable bilaterally. There was no adenopathy. Lungs sounds are diminished bilaterally involving the lung bases Heart sounds are distant, rhythm is paced, positive S1-S2, no significant murmurs. Abdominal exam revealed normal bowel sounds. The abdomen was soft, non-tender, and without masses, organomegaly, or appreciable enlargement of the abdominal aorta. Extremities are edematous and this is mainly lower extremities and there is areas of skin fluid weeping along with skin excoriation and some limited stage II ulcer on the thighs. Lower extremity edema is improved on today's exam, and bilateral lower extremities are lisandro wrapped Neurologically, the patient is awake and alert and the patient does not have any focal neurological deficit. Cranial nerves are essentially intact. - Labs CBC & Chem 7: 12/31/20 04:35 12/31/20 04:35 Labs: Abnormal Lab Results - Last 24 Hours (Table) 12/30/20 12/30/20 12/30/20 Range/Units 12:55 16:54 20:47 WBC (3.8-10.6) k/uL RDW (11.5-15.5) % Plt Count (150-450) k/uL Neutrophils # (1.3-7.7) k/uL Lymphocytes # (1.0-4.8) k/uL Sodium (137-145) mmol/L Chloride (98-107) mmol/L BUN (9-20) mg/dL Creatinine (0.66-1.25) mg/dL Glucose (74-99) mg/dL POC Glucose (mg/dL) 296 H 137 H 167 H (75-99) mg/dL Total Bilirubin (0.2-1.3) mg/dL Alkaline Phosphatase (38-126) U/L Total Protein (6.3-8.2) g/dL Albumin (3.5-5.0) g/dL 12/31/20 12/31/20 12/31/20 Range/Units 04:35 04:35 07:01 WBC 12.6 H (3.8-10.6) k/uL RDW 16.5 H (11.5-15.5) % Plt Count 124 L (150-450) k/uL Neutrophils # 11.2 H (1.3-7.7) k/uL Lymphocytes # 0.5 L (1.0-4.8) k/uL Sodium 128 L (137-145) mmol/L Chloride 93 L (98-107) mmol/L BUN 88 H (9-20) mg/dL Creatinine 1.97 H (0.66-1.25) mg/dL Glucose 164 H (74-99) mg/dL POC Glucose (mg/dL) 183 H (75-99) mg/dL Total Bilirubin 2.0 H (0.2-1.3) mg/dL Alkaline Phosphatase 169 H (38-126) U/L Total Protein 5.3 L (6.3-8.2) g/dL Albumin 2.7 L (3.5-5.0) g/dL Assessment and Plan Plan: Assessment: 1 acute on chronic decompensated heart failure in a patient with known history of ischemic cardiomyopathy with an on combination of cardiac medications including diuretics in a form of Lasix, Aldactone and Zaroxolyn. The patient's was admitted to the hospital for fluid overload and the patient is currently on diuretics in the form of Lasix 2 acute hypotension, likely secondary to cardiogenic hypotension in combination with use of diuretics and fluid shift, is on dobutamine at 2.5 mics per kilo per minute, and levo fed is at 0.1 mics per kilo per minute 3 acute kidney injury on top of chronic kidney failure secondary to cardiorenal syndrome pattern is improving is currently down to 1.9 4 coronary artery disease appears bypass surgery 5 paroxysmal atrial fibrillation current rhythm is paced 6 massive fluid overload with edema in lower extremities along with skin excoriation 7 intertirginous Stefania infection involving the groins 8 history of AICD placement 9 morbid obesity 10 obstructive sleep apnea not utilizing CPAP 11 BPH 12 hyperlipidemia 13 chronic insomnia. 14 hyponatremia secondary to advanced cardiomyopathy, improving with diuresis Plan She is maintaining negative fluid balance Continue Lasix 40 MG IV q 12 hour Dobutamine continues at 2.5 mcg/kg per minute Norepinephrine at 0.1 mics per kilo per minute Continue Fluid restriction Input and output monitoring Monitor renal function Supplement oxygen to maintain a saturation above 90% Silvadene cream to the lower extremities along with some Lisandro wrap's DNR/DNI code The patient and his family decided to in palliative care/hospice and requesting to be transferred to [facility] facility today. At 1:00 this afternoon the vasoactive drips will be shut off, and patient will be monitored for any rapid decompensation if it is feasible to transport him to outpatient [facility] facility. Family is in agreement I performed a history & physical examination of the patient and discussed their management with my nurse practitioner, Shanice Collado. I reviewed the nurse practitioner's note and agree with the documented findings and plan of care. Lung sounds are positive for diffuse wheezes throughout the lung banks. The findings and the impression was discussed with the patient. I attest to the documentation by the nurse practitioner. Time with Patient: Less than 30
[2020-12-31 13:03] LABS: Glucose,Whole Blood 170 mg/dL (75-99)
[2020-12-31 16:58] VITALS: BP 80/37; PULSE 108; RESP 29
--- NOTE | 2021-01-01 21:11 | P.DS ---
Providers Date of admission: 12/29/20 14:18 Expected date of discharge: 12/31/20 Attending physician: Jacob Cortez Consults: 12/29/20 14:21 Consult Physician Stat Consulting Provider: John Paul Mcdaniel Consult Reason/Comments: kidney failure Do you want consulting provider notified?: Yes Consult Physician Stat Consulting Provider: Taj Martinez Consult Reason/Comments: chf Do you want consulting provider notified?: Yes 12/29/20 18:50 Consult Physician Stat Consulting Provider: Debbie Rosas Consult Reason/Comments: CHF, low pressure Do you want consulting provider notified?: Yes Primary care physician: Romero Jacobs MD Hospital Course: Chief Complaint: Edema with blisters lower extremity History of presenting complaint: This is a 75-year-old patient of Dr. Romero Jacobs. 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 Chronic stable medical conditions include atrial fibrillation, osteoarthritis, hyperlipidemia, prostate disorder, obstructive sleep apnea does not use CPAP, hypothyroid, coronary artery disease with bypass. Does have a walker at home. Patient was recently hospitalized with acute congestive heart exacerbation and acute kidney injury felt to be cardiorenal syndrome. Was put on a Lasix drip. To which it responded well. Patient now presents with increasing lower extremity swelling. Blisters. Redness in the groin area. Denies any fever and chills. Appetite is fair. Baseline shortness of breath. I daughter to Lasix drip on the patient. Patient's blood pressure dropped to about 70 systolic. Patient smoked in ICU. [employer] nephrology cardiology was consulted. Admitted with acute CHF exacerbation from systolic dysfunction EF less than 20%, acute kidney injury from prerenal from cardiorenal syndrome, intertriginous ezra infection of the groin severe, Cardizem and shock. Patient is put on IV Lasix drip, dobutamine, levo fed. Admitted to the ICU Today: Patient making good urine output. Patient very keen to go to the hospice house. Discussed with the patient at length about doing further diuresis to help him. At this time he feels strongly that he should go the hospice as the conditions recurrent. I also discussed the patient daughter. We will discharge him to the hospice which is rather appropriate. He is going to the hospice house in [place]. As discussed with the patient and daughter. In the afternoon patient's levo fed dobutamine and Lasix drip for all discontinued. Discussion and discharge planning more than 35 minutes Consultation: Dr. Rosas from pulmonary Dr. Mcdaniel from [facility] Past medical history to include: Atrial fibrillation, CHF, hyperlipidemia, osteoarthritis, prostate disorder, obstructive sleep apnea does not use CPAP, home oxygen 2 L when necessary, coronary artery disease with bypass, thyroidectomy, permanent pacemaker with AICD Social history: Lives with his granddaughter. Does use a walker/cane. Patient quit daily using a pipe 40 years ago. No alcohol. Physical examination: VITAL SIGNS: Afebrile, 71, 24, 79/47, 96% GENERAL:, reclining in bed, some short of breath EYES: Pupils equal. Conjunctiva normal. NECK: JVD unable to assess; masses not palpable. HEART: Distant heart sounds; significant edema. LUNGS: Respiratory rate increased; decreased breath sounds ABDOMEN: Soft, nontender, liver spleen not palpable, no masses palpable. DERMATOLOGICAL: Redness skin both the groin folds , with breakdown of skin PSYCH: Alert and oriented x3; mood and affect tired MUSCULAR skeletal: Evidence of OA INVESTIGATIONS, reviewed in the clinical context: December 31: WBC 12.6 hemoglobin 15.2 sodium 128 potassium 4.5 bun 88 creatinine 1.97 December 30: WBC 14.9 hemoglobin 16.3 platelets 129 sodium 124 potassium 5.5 bun 102 creatinine 2.8 WBC 7.8 hemoglobin 14.8 platelets 105 potassium 5.5 bun 108 creatinine 3.54 troponin I 0.044 albumin 2.6 Coronavirus [PCR-not detected EKG tracing personally reviewed by me-right bundle branch block Chest x-ray film personally reviewed by me-cardiomegaly pulmonary edema 2-D echocardiogram [12/11/2020 dose packet: Moderate concentric LVH, EF less than 20% moderate mitral regurgitation Recent visual ultrasound: No evidence of renal mass obstruction. Exam limited because of patient's size from December 12. Assessment and plan: -Acute on chronic congestive heart failure exacerbation, from systolic dysfunction. EF less than 20%-slow to respond Lasix drip 10 mg an hour-discontinued. Strict I's and O's. Fluid restriction. Lasix 40 mg IV every 12. All drips discontinued. Demadex added [place] -Acute kidney injury likely prerenal from cardiorenal syndrome-slow to respond On Lasix drip. -Paroxysmal atrial fibrillation, currently in sinus rhythm -Intertriginous ezra infection of bilateral groin -severe Topical nystatin powder -AICD -Hyperlipidemia- Continue Lipitor -Chronic insomnia -, multifactorial continue melatonin -Primary osteoarthritis, use Tylenol when necessary -BPH Lozada catheter placed for strict I's and O's -Obstructive sleep apnea patient does not use CPAP -Morbid obesity BMI 50.5. Weight loss measures and follow-up with dietitian and PCP -Coronary artery disease with a history of coronary bypass Continue with aspirin, beta fior -GERD continue omeprazole -Cardiogenic shock, with hypotension-slow to respond Dobutamine drip and levo fed. Hold Entresto. -Hyperkalemia secondary to kidney failure Follow electrolytes -Hyponatremia from significant diuresis Follow closely -DO NOT RESUSCITATE Disposition: Hospice [facility] for hospice Patient Condition at Discharge: Stable Plan - Discharge Summary Discharge Rx Participant: No New Discharge Prescriptions: New Midodrine [ProAmatine] 5 mg PO AC-TID tab SILVER sulfADIAZINE CREAM [Silvadene Cream] 1 applic TOPICAL DAILY applic Torsemide [Demadex] 40 mg PO BID #1 tablet Apixaban [Eliquis] 2.5 mg PO BID tablet Melatonin 6 mg PO HS tablet Continue Spironolactone [Aldactone] 25 mg PO DAILY Aspirin EC [Ecotrin Low Dose] 81 mg PO BID Nystatin [Nystop] 1 applic TOPICAL BID Atorvastatin [Lipitor] 10 mg PO HS Nitroglycerin Sl Tabs [Nitrostat] 0.4 mg SL Q5M PRN PRN Reason: Chest Pain Polyethylene Glycol 3350 [Miralax] 34 gm PO DAILY Docusate [Colace] 200 mg PO BID Ondansetron Odt [Zofran ODT] 8 mg PO BID@0900,1300 Pantoprazole Sodium [Protonix] 40 mg PO BID@0900,1300 Potassium Chloride [Klor-Con 20] 20 meq PO DAILY Discontinued Multivitamin [Men's Multi-Vitamin] 1 tab PO DAILY Sacubitril/Valsartan [Entresto 24 mg-26 mg Tablet] 1 tab PO BID Apixaban [Eliquis] 5 mg PO BID carvediloL [Coreg*] 6.25 mg PO BID Ascorbic Acid [Vitamin C] 500 mg PO BID Furosemide [Lasix] 80 mg PO BID@1200,2100 metOLazone [Zaroxolyn] 2.5 mg PO MOFR Sucralfate 1 gm PO ACHS PRN PRN Reason: Gi Upset Discharge Medication List Spironolactone [Aldactone] 25 mg PO DAILY 07/18/15 [History] Aspirin EC [Ecotrin Low Dose] 81 mg PO BID 09/14/20 [History] Nystatin [Nystop] 1 applic TOPICAL BID 09/14/20 [History] Atorvastatin [Lipitor] 10 mg PO HS 12/10/20 [History] Docusate [Colace] 200 mg PO BID 12/10/20 [History] Nitroglycerin Sl Tabs [Nitrostat] 0.4 mg SL Q5M PRN 12/10/20 [History] Ondansetron Odt [Zofran ODT] 8 mg PO BID@0900,1300 12/10/20 [History] Pantoprazole Sodium [Protonix] 40 mg PO BID@0900,1300 12/10/20 [History] Polyethylene Glycol 3350 [Miralax] 34 gm PO DAILY 12/10/20 [History] Potassium Chloride [Klor-Con 20] 20 meq PO DAILY 12/10/20 [History] Apixaban [Eliquis] 2.5 mg PO BID tablet 12/31/20 [Rx] Melatonin 6 mg PO HS tablet 12/31/20 [Rx] Midodrine [ProAmatine] 5 mg PO AC-TID tab 12/31/20 [Rx] SILVER sulfADIAZINE CREAM [Silvadene Cream] 1 applic TOPICAL DAILY applic 12/31/20 [Rx] Torsemide [Demadex] 40 mg PO BID #1 tablet 12/31/20 [Rx] Follow up Appointment(s)/Referral(s): Romero Jacobs MD [Primary Care Provider] - 1-2 days (Discharging to hospice house) Discharge Disposition: HOME WITH HOSPICE
== END 2020-12-31 17:35 | disposition hospice, home (50) | DRG 291 ==
LOC: EC 11:43 → 3SCARD 14:18 → 2SICU 19:52
PROVIDERS: ADMIT Hospitalist; ATTEND Hospitalist
PROC: 3E033XZ Introduction of Vasopressor into Peripheral Vein, Percutaneous Approach (ICD-10-PCS; principal; 2020-12-29)
DX: I13.0 Hypertensive heart and chronic kidney disease with heart failure and stage 1 through stage 4 chronic kidney disease, or unspecified chronic kidney disease (principal); I50.23 Acute on chronic systolic (congestive) heart failure; R57.0 Cardiogenic shock; E87.1 Hypo-osmolality and hyponatremia; N17.9 Acute kidney failure, unspecified; Z68.43 Body mass index [BMI] 50.0-59.9, adult; B37.2 Candidiasis of skin and nail; E66.01 Morbid (severe) obesity due to excess calories; E78.5 Hyperlipidemia, unspecified; E87.5 Hyperkalemia; F51.04 Psychophysiologic insomnia; G47.33 Obstructive sleep apnea (adult) (pediatric); I25.10 Atherosclerotic heart disease of native coronary artery without angina pectoris; I25.5 Ischemic cardiomyopathy; I45.10 Unspecified right bundle-branch block; I48.0 Paroxysmal atrial fibrillation; K21.9 Gastro-esophageal reflux disease without esophagitis; M19.91 Primary osteoarthritis, unspecified site; N18.32 Chronic kidney disease, stage 3b; N40.0 Benign prostatic hyperplasia without lower urinary tract symptoms; Z20.822 Contact with and (suspected) exposure to COVID-19; Z51.5 Encounter for palliative care; Z66 Do not resuscitate; Z79.01 Long term (current) use of anticoagulants; Z79.899 Other long term (current) drug therapy; Z80.42 Family history of malignant neoplasm of prostate; Z87.891 Personal history of nicotine dependence; Z95.1 Presence of aortocoronary bypass graft; Z95.810 Presence of automatic (implantable) cardiac defibrillator; Z98.49 Cataract extraction status, unspecified eye; Z71.3 Dietary counseling and surveillance; Z99.81 Dependence on supplemental oxygen; T50.2X5A Adverse effect of carbonic-anhydrase inhibitors, benzothiadiazides and other diuretics, initial encounter; L89.892 Pressure ulcer of other site, stage 2
CPT/HCPCS: 36415; 71045; 80053; 81001; 83605; 83735; 83880; 84484; 85025; 85610; 85730; 87635; 93005; 96374; 99285